=== PATIENT | male | born 1965 | race Caucasian/White ===

== ENCOUNTER 2021-06-20 11:39 | Emergency (ER) | payer SELFPAY ==
--- NOTE | ~2021-06-20 | XR_ITS ---
EXAMINATION: XR chest 2V DATE: 06/20/2021 12:39 INDICATION: Weakness. TECHNIQUE: Frontal and lateral views of the chest were obtained. COMPARISON: None. FINDINGS: There is mild elevation of right hemidiaphragm. There is mild atelectasis at right lung bas e. No pleural effusion or pneumothorax. The heart size is normal. IMPRESSION: 1. Mild elevation of right hemidiaphragm with mild atelectasis at right lung base. Reviewed, dictated and finalized at location A. IMPRESSION: 1. Mild elevation of right hemidiaphragm with mild atelectasis at right lung ba se.
[2021-06-20 12:11] VITALS: BP 109/72; PULSE 103; RESP 16; TEMP 36.3; O2SAT 99
--- NOTE | 2021-06-20 12:15 | ECG_ITS ---
Measurements Intervals [place] Rate: 104 P: 55 IN: 176 QRS: 14 QRSD: 87 T: 48 QT: 355 QTc: 468 Interpretive Statements SINUS TACHYCARDIA POOR R-WAVE PROGRESSION NONSPECIFIC ST & T-WAVE ABNORMALITY ABNORMAL RHYTHM ECG NO PREVIOUS ECG AVAILABLE FOR COMPARISON Electronically Signed On 06-20-2021 15:43:17 CDT by John Sellers M.D.
[2021-06-20 12:29] LABS: Basophils Percent Auto 0.2 % (0.2-1.2); Eosinophils Absolute Auto 0.2 K/mm3 (0-0.3); Eosinophils Percent Auto 1.2 % (0-4.4); Hematocrit 37.5 % (42.0-52.0); Hemoglobin 11.6 g/dL (14.0-18.0); Immature Granulocyte Absolute 0.04 K/mm3 (0.00-0.031); Immature Granulocyte Percent A 0.3 % (0-0.5); Lymphocytes Absolute Auto 1.97 K/mm3 (0.9-3.2); Lymphocytes Percent Auto 13.7 % (18.3-44.2); Mean Corpuscular HGB Conc 30.9 g/dl (32-36); Mean Corpuscular Hemoglobin 31.4 pg (26-34); Mean Corpuscular Volume 101.6 fl (80-100); Mean Platelet Volume 10.3 fl (7.4-10.4); Monocytes Absolute Auto 0.7 K/mm3 (0.1-0.6); Monocytes Percent Auto 4.5 % (2.6-8.5); Neutrophils Absolute Auto 11.5 K/mm3 (1.3-6.7); Neutrophils Percent Auto 80.1 % (45.5-73.1); Platelet Count Result 296 k/mm3 (150-375); Red Blood Count 3.69 M/mm3 (4.6-6.20); Red Cell Distribution Width 16.8 % (11.5-14.5); White Blood Count 14.4 K/mm3 (4.5-10.0)
[2021-06-20 12:43] LABS: Alanine Aminotransferase 66 U/L (4-50); Albumin Level 3.4 g/dL (3.5-5.1); Alkaline Phosphatase 589 U/L (38-126); Anion Gap 5 mmol/L (8-16); Aspartate Amino Transferase 190 U/L (17-59); Bilirubin,Total 1.8 mg/dL (0.2-1.3); Blood Urea Nitrogen 15 mg/dL (9-20); Calcium 8.7 mg/dL (8.4-10.2); Carbon Dioxide 33 mmol/L (22-30); Chloride 97 mmol/L (98-107); Estimated Glomerular Filt Rate > 60; Glucose 109 mg/dL (65-110); Potassium 3.4 mmol/L (3.4-5.0); Sodium 135 mmol/L (137-145)
[2021-06-20 15:16] VITALS: BP 111/83; PULSE 99; RESP 20; O2SAT 100
--- NOTE | 2021-06-20 15:19 | ED.WEAKNESS ---
HPI - Weakness General Chief complaint: Weakness Stated complaint: back pain/weakness Time Seen by Provider: 06/20/21 15:06 Source: patient Mode of arrival: ambulatory Limitations: no limitations History of Present Illness HPI Narrative: Pt presents with intermittent weakness generally over the last several months. 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 says he was more confused this morning. MD Complaint: generalized weakness and difficulty walking Duration: intermittent Location: generalized Exacerbating factors: exertion Related Data Allergies Allergy/AdvReac Type Severity Reaction Status Date / Time ciprofloxacin [From Cipro] Allergy Rash Verified 06/20/21 15:14 mupirocin [From Bactroban] Allergy Hives Verified 06/20/21 15:14 Review of Systems Review of Systems: All systems reviewed & are unremarkable except as noted in HPI and below Exam Const: General: no acute distress Orientation/consciousness: patient oriented x3 HENMT: Head: normal to inspection Eyes: Conjunctivae: conjunctivae normal EOM: EOMs intact bilaterally Neck: Neck: normal visual inspection, no lymphadenopathy and no meningeal signs Chest: Chest palpation & inspection: normal inspection of the chest Resp: Effort & Inspection: normal respiratory effort Auscultation: clear to auscultation bilaterally Cardio: Rate: regular rate Rhythm: regular rhythm GI: Inspection: distended Back/Spine/Pelvis: Back: no CVA tenderness Skin: General skin exam: normal color Neuro: General: patient oriented x3, moves all extremities, no meningeal signs and CN's II-XI intact bilaterally Speech: normal speech Extrem: General: normal to inspection, no clubbing, cyanosis or edema and no pedal edema Course Course Emergency Course: d/w , said having trouble caring for him at home and were told at [facility] that it would cost $5500 for placement since they aren't insured. Hand Knitter contacted here for consult. Pt wants to sign AMA. Will contact . says she will not come get him and they are not capable of caring for him. D/w Tari, will admit. Vital Signs Vital signs: Vital Signs Temperature 97.3 F L 06/20/21 12:11 Pulse Rate 103 H 06/20/21 12:11 Respiratory Rate 16 06/20/21 12:11 Blood Pressure 109/72 06/20/21 12:11 Pulse Oximetry 99 06/20/21 12:11 Temperature 97.3 F L 06/20/21 12:11 Pulse Rate 99 06/20/21 15:16 Respiratory Rate 20 06/20/21 15:16 Blood Pressure 111/83 06/20/21 15:16 Pulse Oximetry 100 06/20/21 15:16 MDM - Weakness Lab Data Result diagrams: 06/20/21 12:18 06/20/21 12:18 Labs: Lab Results 06/20/21 06/20/21 06/20/21 Range/Units 12:18 12:18 15:35 WBC 14.4 H (4.5-10.0) K/mm3 RBC 3.69 L (4.6-6.20) M/mm3 Hgb 11.6 L (14.0-18.0) g/dL Hct 37.5 L (42.0-52.0) % MCV 101.6 H (80-100) fl MCH 31.4 (26-34) pg MCHC 30.9 L (32-36) g/dl RDW 16.8 H (11.5-14.5) % Plt Count 296 (150-375) k/mm3 MPV 10.3 (7.4-10.4) fl Immature Gran % (Auto) 0.3 (0-0.5) % Neut % (Auto) 80.1 H (45.5-73.1) % Lymph % (Auto) 13.7 L (18.3-44.2) % [place] % (Auto) 4.5 (2.6-8.5) % Eos % (Auto) 1.2 (0-4.4) % Baso % (Auto) 0.2 (0.2-1.2) % Lymph # (Auto) 1.97 (0.9-3.2) K/mm3 [place] # (Auto) 0.7 H (0.1-0.6) K/mm3 Eos # (Auto) 0.2 (0-0.3) K/mm3 Baso # (Auto) 0.0 (0.0-0.1) K/mm3 Abs Immat Gran (auto) 0.04 H (0.00-0.031) K/mm3 Absolute Neuts (auto) 11.5 H (1.3-6.7) K/mm3 Absolute Nucleated RBC 0.0 (0.0-0.012) K/mm3 Nucleated RBC % 0.0 (0.0-0.2) % Sodium 135 L (137-145) mmol/L Potassium 3.4 (3.4-5.0) mmol/L Chloride 97 L (98-107) mmol/L Carbon Dioxide 33 H (22-30) mmol/L Anion Gap 5 L (8-16) mmol/L BUN 15 (9-20) mg/dL Creatinine 0.70 (0.7-1.3) mg/
[2021-06-20] MEDS: SODIUM CHLORIDE 0.9% IV 1,000 ML 999 ML IV CONT (15:25)
[2021-06-20 15:49] LABS: Ammonia < 9 umol/L (9-30)
--- NOTE | 2021-06-20 17:42 | PC.NURSE ---
PT STATES HE IS UNABLE TO URINATE
--- NOTE | 2021-06-20 18:53 | PC.NURSE ---
PT DECLINES TO PROVIDE URINE SAMPLE. AWAITING TO PICK PATIENT UP FROM ER. STATES SHE IS COMING FROM [facility].
== END 2021-06-20 19:20 | disposition left against medical advice (07) ==
PROVIDERS: Emergency Provider Emergency Medicine
DX: R53.1 Weakness (principal)
CPT/HCPCS: 36415; 71046; 80053; 82140; 85025; 93005; 96360; 96361; 99283; J7030

== ENCOUNTER 2021-09-14 03:16 | Observation (INO) | payer SELFPAY ==
[2021-09-14] VITALS (55 sets, daily range): BP systolic 118–170; BP diastolic 87–142; PULSE 73–130; RESP 14–26; TEMP 36.4–37.1; O2SAT 90–99; BMI 30.2; BMI 29.0
--- NOTE | 2021-09-14 | ECHO_ITS ---
Patient Info Name: Estiven Singletary Age: 56 years : 1965 Gender: Male Ht: 66 in Wt: 220 lbs BSA: 2.20 m2 HR: 89 bpm BP: 147 / 111 mmHg Technical Quality: Good Exam Date: 09/14/2021 2:56 PM Exam Location: [facility] Patient Status: Inpatient Admit Date: 09/14/2021 Staff Ordering Physician: Lenin Thao APN-Robert Ton Cylinder Inspector: Kunal Woodward RDCS, RT Attending Provider: Lea Gasca DO Referring Physician: Master DONALDSON; Exam Type: CA echo doppler w bubble study Study Info Indications R55 - Syncope and collapse Complete two-dimensional, color flow and Doppler transthoracic echocardiogram is performed. Strain analysis performed. Summary 1. Complete two-dimensional, color flow and Doppler transthoracic echocardiogram is performed. 2. Left ventricular chamber dimension is normal. 3. Left ventricular systolic function is normal, estimated at 55-60%. 4. The left ventricular diastolic function is grade I diastolic dysfunction. 5. E/e' 6 is not elevated. 6. Global longitudinal strain is mildly abnormal at -16.4%. Left Ventricle E/e' 6 is not elevated. Global longitudinal strain is mildly abnormal at -16.4%. Left ventricular chamber dimension is normal. Left ventricular systolic function is normal, estimated at 55-60%. The left ventricular diastolic function is grade I diastolic dysfunction. Right Ventricle Right ventricular systolic function is normal and with normal TAPSE 1.8 cm. Right ventricular chamber dimension is normal. Left Atria Left atrial chamber dimension is normal. Right Atria Right atrial chamber dimension is normal. Atrial Septum Agitated saline injection with and without valsalva maneuver opacified right side cardiac chambers with no obvious shunt to left side cardiac chambers. Intact interatrial septum visualized by 2D and agitated saline imaging. Aortic Valve The aortic valve is trileaflet. There is no aortic valve stenosis. There is no aortic valve regurgitation. Pulmonic Valve There is no pulmonic regurgitation. Mitral Valve There is no mitral valve stenosis. There is no mitral valve regurgitation. Tricuspid Valve There is no tricuspid valve regurgitation. Pericardium/Pleural There is no pericardial effusion. Inferior Vena Cava Normal inferior vena cava with >50% collapse upon inspiration consistent with normal right atrial pressure, 5 mmHg. Aorta The aortic root size at the sinus of Valsalva is normal. Left Ventricular Outflow Tract Name Value Normal LVOT 2D LVOT Diameter 2.0 cm LVOT Doppler LVOT Peak Gradient 7 mmHg LVOT Mean Gradient 4 mmHg LVOT VTI 23 cm LVOT VTI/AV VTI Ratio 1.1 LVOT Stroke Volume 73 ml LVOT CO 6.4 l/min LVOT CI 2.9 l/min/m2 Mitral Valve Name Value Normal
--- NOTE | ~2021-09-14 | CT_ITS ---
EXAMINATION: CT thoracic lumbar wo con DATE: 09/16/2021 14:26 INDICATION: Back pain and numbness TECHNIQUE: Computed tomography (CT) of the thoracic and lumbar spine was performed without intravenou s contrast. Automated exposure control and iterative reconstruction technique were employed. Exam dos e: 2271.56 mGy-cm total exam DLP. COMPARISON: None FINDINGS: Moderately prominent degenerative disc disease at C5-6 and severe degenerative disease at C 6-7. Prominent anterior bridging osteophyte at C3-4. There is prominent anterior spurring at T10 into the upper lumbar spine... No fracture or dislocation or bone destruction of the thoracic spine. There is moderate degenerative disc disease throughout the lumbar and lumbosacral spine with associat ed mild retrolisthesis at L3-4 and L4-5. There is disc bulging posteriorly at L4-5 and L5-S1 but no apparent herniated nucleus pulposus. MR ex amination would be more sensitive and accurate for detection of disc pathology. No fracture or bone destruction, spondylolysis or of the lumbar spine. IMPRESSION: Degenerative changes of the cervical, thoracic and lumbar spine Reviewed, dictated and finalized at Location A. Reviewed, dictated and finalized at location A.
--- NOTE | ~2021-09-14 | US_ITS ---
EXAMINATION: US carotid duplex BI DATE: 09/15/2021 14:41 INDICATION: Syncope TECHNIQUE: Grayscale, color Doppler, and pulsed Doppler images of the cervical carotid arteries were obtained. The degree of vessel stenosis is placed in one of the following categories: normal, <50%, 5 0-69%, >=70% but less than near-occlusion, near-occlusion, or total occlusion. Note that percent sten osis relative to normal distal artery lumen diameter is indirectly measured from velocity measurement s as described by Edilson, et al. Radiology 2003; 229:340-346. Notes: Normal: Peak systolic velocity <125 centimeters/sec and no plaque <50%. Peak systolic velocity <125 ( EDV <40; ICA/CCA PSV ratio <2.0; used these factors only a tandem lesions or low cardiac output or co ntralateral disease) 50-69 %: PSV 125-230 (EDV 40-100; ratio 2-4) >= 70% but less than near occlusion: PSV greater than 230 (EDV > 100; ratio> 4.0) Near Occlusion: PSV that is variable; markedly narrowed lumen Occlusion: Absent flow on color/spectral Doppler and no lumen on cruz scale. COMPARISON: None. FINDINGS: RIGHT: The right common carotid artery (CCA) peak systolic velocity (PSV) is 46 cm/s. The right internal car otid artery (ICA) PSV is 41 cm/s. The right ICA end-diastolic velocity (EDV) is 16 cm/s. The right IC A/CCA PSV ratio is 0.9. The external carotid artery (ECA) PSV is 39 cm/s. There is antegrade flow in the right vertebral artery. LEFT: The left CCA PSV is 50 cm/s. The left ICA PSV is 46 cm/s. The left ICA EDV is 17 cm/s. The left ICA/C CA PSV ratio is 0.9. The ECA PSV is 53 cm/s. There is antegrade flow in the left vertebral artery. IMPRESSION: 1. Less than 50% stenosis in the right internal carotid artery by sonographic criteria. 2. Less than 50% stenosis in the left internal carotid artery by sonographic criteria. Reviewed, dictated and finalized at location A. IMPRESSION: 1. Less than 50% stenosis in the right internal carotid artery by sonographic mariana crane. 2. Less than 50% stenosis in the left internal carotid artery by sonographic zain ivey.
--- NOTE | ~2021-09-14 | XR_ITS ---
EXAMINATION: XR chest 1V portable INDICATION: Chest pain TECHNIQUE: Portable AP chest at 0331 hours COMPARISON: 06/20/2021 FINDINGS: There is elevation of the right hemidiaphragm. The lungs are free of acute opacities. No pl eural effusion or pneumothorax. A suture anchor is noted in the right humeral head. There is osteoart hritis of the shoulders. IMPRESSION: 1. No acute cardiopulmonary abnormality. Reviewed, dictated and finalized at location B.
--- NOTE | ~2021-09-14 | CT_ITS ---
EXAMINATION: CTA chest PE protocol DATE: 09/14/2021 05:09 INDICATION: Chest pain. Elevated d-dimer. TECHNIQUE: Computed tomography (CT) pulmonary angiogram of the chest was performed with 200 mL Omnipa que-350 intravenous contrast. Additional 3D reconstructions utilizing coronal maximum intensity proje ction (MIP) were performed. Automated exposure control and iterative reconstruction technique were em ployed. The dose-length product was 1355.23 mGy-cm. COMPARISON: None FINDINGS: Good contrast opacification of the pulmonary arteries. There is mild streak artifact from dense contr ast in the superior vena cava and right atrium. Mild scattered respiratory motion artifact. Together this only mildly decreases sensitivity in some of the smaller subsegmental pulmonary arteries. No pul monary embolism. Minimal dependent atelectasis in the bilateral lower lobes. No pneumonia, pulmonary edema, pleural effusion or pneumothorax. Heart size is normal. Atherosclerotic coronary artery calcif ication. No pericardial effusion. No pathologically enlarged thoracic lymphadenopathy. There are a fe w scattered diverticula along the visualized portions of the hepatic and splenic flexures of the colo n. There is a dissection beginning 2.5 cm from the origin of the superior mesenteric artery extending at least 5 cm distally to the inferior margin of the [id number] along a partially visualized and partially thrombosed fusiform aneurysm measuring up to 1.7 cm in diameter. Small amount of dependentl y layering high attenuation material in the gallbladder likely either sludge or gallstones. Mild wall thickening at the tip the fundus most likely focal adenomyomatosis. No more diffuse wall thickening or pericholecystic infiltrate stranding to suggest acute cholecystitis. Mild thoracic spondylosis. Ri ght rotator cuff arthropathy with suture anchors along the greater tuberosity right humeral head cons istent with prior rotator cuff repair. IMPRESSION: 1. No pulmonary embolism with sensitivity only mildly decreased some of the smaller subsegmental pulm onary arteries due to mild scattered respiratory motion artifact. 2. 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 3. Small amount of high attenuation sludge or gallstones in the dependent aspect of the gallbladder w ithout wall thickening or inflammatory stranding to suggest acute cholecystitis. Reviewed, dictated and finalized at location A. IMPRESSION: 1. No pulmonary embolism with sensitivity only mildly decreased some of the sma ller subsegmental pulmonary arteries due to mild scattered respiratory motion a rtifact. 2. Superior mesenteric artery dissection with partially visualized fusiform ane urysm measuring up to 1.7 cm. 3. Small amount of high attenuation sludge or gallstones in the dependent aspec t of the gallbladder without wall thickening or inflammatory stranding to sugge st acute cholecystitis.
--- NOTE | ~2021-09-14 | CT_ITS ---
EXAMINATION: CT brain wo con INDICATION: Transient alteration of awareness COMPARISON: None TECHNIQUE: Standard unenhanced head CT. The dose-length product (DLP) was 605.33 mGy-cm. The mA was a djusted according to patient size. Iterative reconstruction technique was employed. FINDINGS: There is no intracranial hemorrhage, acute infarction, or abnormal mass lesion. The ventric les are normal. There is no abnormal mass effect or midline shift. The cruz-white matter differentiat ion is normal. The basal cisterns are patent. The orbits are normal. The paranasal sinuses, mastoids and calvarium are normal. IMPRESSION: 1. No acute intracranial abnormality. Reviewed, dictated and finalized at location B.
--- NOTE | ~2021-09-14 | US_ITS ---
EXAMINATION: US venous doppler [facility] DATE: 09/15/2021 10:00 INDICATION: Bilateral lower limb edema TECHNIQUE: Herrmann scale images without and with compression and Doppler images of the bilateral lower e xtremity veins were obtained. COMPARISON: None FINDINGS: There is nonocclusive thrombus in the right femoral vein. The right common femoral vein, profunda fem oral vein, popliteal vein, peroneal trunk, posterior tibial veins, and greater saphenous vein are pat ent. The left common femoral vein, profunda femoral vein, femoral vein, popliteal vein, peroneal trunk, po sterior tibial veins, and greater saphenous vein are patent. IMPRESSION: 1. Nonocclusive thrombus in the right femoral vein, otherwise patent bilateral lower extremity veins. These findings were discussed with LILIBETH Barreto in the IMU at 1022 hours on 09/15/2021. Reviewed, dictated and finalized at location B. IMPRESSION: 1. Nonocclusive thrombus in the right femoral vein, otherwise patent bilateral lower extremity veins. These findings were discussed with LILIBETH Barreto in the IMU at 1022 hours on 2021.
--- NOTE | ~2021-09-14 | CT_ITS ---
EXAMINATION: CT cervical spine wo con DATE: 09/16/2021 14:26 INDICATION: Pain and numbness TECHNIQUE: Computed tomography (CT) of the cervical spine was performed without intravenous contrast. Automated exposure control and iterative reconstruction technique were employed. Exam dose: 453.62 mGy-cm total exam DLP. COMPARISON: None FINDINGS: There is straightening of the cervical spinal which may be due to positioning or muscle spa sm. C1 and C2 are normally aligned and the odontoid process is intact.. No fracture or dislocation or loc ked facet or prevertebral soft tissue swelling. Mild anterior spurring at C2-3 with preservation of disc space. 3. 4 and C4-5 interspaces are relatively well preserved. Mild to moderate degenerative disc disease at C5-6 with anterior posterior spurring. Severe degenerative disc disease at C6-7 with anterior and moderately prominent posterior spurring. Prominent uncovertebral joint spurring on the left at C2-3, encroaching on left C3 neural foramen. Prominent uncovertebral joint spurring on the right at C5-6 and bilaterally at C6-7, encroaching upon the right C6 and bilateral C7 neural foramina. IMPRESSION: Straightening of cervical spine Cervical spondylosis, including severe degenerative disease at C6-7 in particular, uncovertebral join t spurring particularly on the left at C2-3 on the right at C5-6 and bilaterally at C6-7 Reviewed, dictated and finalized at Location A. Reviewed, dictated and finalized at location A. IMPRESSION: Straightening of cervical spine Cervical spondylosis, including severe degenerative disease at C6-7 in particul ar, uncovertebral joint spurring particularly on the left at C2-3 on the right at C5-6 and bilaterally at C6-7
--- NOTE | 2021-09-14 03:00 | ECG_ITS ---
Measurements Intervals [place] Rate: 120 P: 73 DE: 173 QRS: 35 QRSD: 85 T: 44 QT: 325 QTc: 459 Interpretive Statements SINUS TACHYCARDIA ANTERIOR INFARCT, AGE INDETERMINATE ABNORMAL ECG Electronically Signed On 09-14-2021 15:47:16 CDT by Donato Vincent D.O.
[2021-09-14 03:16] LABS: Basophils Percent Auto 0.2 % (0.2-1.2); Eosinophils Percent Auto 0.3 % (0-4.4); Hematocrit 46.8 % (42.0-52.0); Immature Granulocyte Absolute 0.02 K/mm3 (0.00-0.031); Immature Granulocyte Percent A 0.3 % (0-0.5); Immature Platelet Fraction Pct 2.4 % (0.9-11.2); Lymphocytes Absolute Auto 0.89 K/mm3 (0.9-3.2); Lymphocytes Percent Auto 15.5 % (18.3-44.2); Mean Corpuscular HGB Conc 32.1 g/dl (32-36); Mean Corpuscular Hemoglobin 29.8 pg (26-34); Mean Corpuscular Volume 92.9 fl (80-100); Mean Platelet Volume 9.2 fl (7.4-10.4); Monocytes Absolute Auto 0.3 K/mm3 (0.1-0.6); Monocytes Percent Auto 5.7 % (2.6-8.5); Neutrophils Absolute Auto 4.5 K/mm3 (1.3-6.7); Platelet Count Result 116 k/mm3 (150-375); Red Blood Count 5.04 M/mm3 (4.6-6.20); Red Cell Distribution Width 16.4 % (11.5-14.5); White Blood Count 5.8 K/mm3 (4.5-10.0)
[2021-09-14 03:26] LABS: Alanine Aminotransferase 43 U/L (6-50); Albumin Level 4.4 g/dL (3.5-5.1); Alkaline Phosphatase 223 U/L (38-126); Anion Gap 16 mmol/L (8-16); Aspartate Amino Transferase 85 U/L (17-59); Bilirubin,Total 1.2 mg/dL (0.2-1.3); Blood Urea Nitrogen 14 mg/dL (9-20); Calcium 8.6 mg/dL (8.4-10.2); Carbon Dioxide 20 mmol/L (22-30); Chloride 102 mmol/L (98-107); Estimated CRCL calculation 109 ml/min; Estimated Glomerular Filt Rate > 60; Glucose 282 mg/dL (65-110); Potassium 3.6 mmol/L (3.4-5.0); Sodium 138 mmol/L (137-145)
[2021-09-14 03:37] LABS: Troponin I < 0.012 ng/mL (0.000-0.034)
[2021-09-14] MEDS: SODIUM CHLORIDE 0.9% IV 1,000 ML 999 ML IV CONT ×2 (03:46→05:45)
[2021-09-14] MEDS: MORPHINE SULFATE (*CRX) 4 MG/ML INJ IV PUSH (03:47)
--- NOTE | 2021-09-14 03:47 | ED.GENADULT ---
HPI - General Adult General Chief complaint: Chest Pain <Isidro Ortiz MD - Last Filed: 09/23/21 07:10> Stated complaint: CP <Isidro Ortiz MD - Last Filed: 09/23/21 07:10> History of Present Illness HPI narrative: 56-year-old male history of alcoholism presented emerged department for evaluation of chest pain. Patient states that he last drank 12 September. Patient states he presented to [facility] September 13. Patient was having chest pain at that time. Patient states they did do work-up and discharge home. Patient states he is still feeling ill. Patient describes chest and back pain. Patient states he has not drink alcohol. Patient does appear anxious and jittery <Isidro Ortiz MD - Last Filed: 09/23/21 07:10> Related Data Home medications: Home Medications Medication Instructions Recorded Confirmed gabapentin 400 mg capsule 1 cap PO DAILY 09/14/21 09/14/21 gabapentin 800 mg tablet 1 tablet PO HS 09/14/21 09/14/21 (Neurontin) <Isidro Ortiz MD - Last Filed: 09/23/21 07:10> Allergies/adverse reactions: Allergies Allergy/AdvReac Type Severity Reaction Status Date / Time ciprofloxacin [From Cipro] Allergy Rash Verified 06/20/21 15:14 mupirocin [From Bactroban] Allergy Hives Verified 06/20/21 15:14 <Isidro Ortiz MD - Last Filed: 09/23/21 07:10> [facility] Past Medical History Medical History: Medical History DVT (deep venous thrombosis) Hyperlipidemia Hypertension <Isidro Ortiz MD - Last Filed: 09/23/21 07:10> Surgical History Surgical History: Surgical History H/O repair of rotator cuff <Isidro Ortiz MD - Last Filed: 09/23/21 07:10> Family History Family History: Family History (Updated 09/14/21 @ 15:59 by MYCHAL Villa) Mother Dementia Father Stomach cancer Sibling Diabetes mellitus <Isidro Ortiz MD - Last Filed: 09/23/21 07:10> Social History Social History: Social History (Updated 09/14/21 @ 16:02 by MYCHAL Villa) Social History: patient currently lives with his of 30 years Marion who will be his surrogate. They have 4 kids all of them are girls the oldest being 40 in the is being 27. They have 1 dog 1 cat and he wishes to be a full code at this time. Smoking packs per day: 0.5 Smoking cigarettes per day: 10.0 Years smoked: 30 Smoking pack-years: 15.00 Smoking status: Current every day smoker Tobacco type: cigarettes Alcohol intake: current Drinks per week: 112 Alcohol use details: Patient states he drinks roughly a 5th or more a day of Brennan Sosa Substance use: never Additional occupation/education comments: [employer] Gender identity (if verbalized by the patient): Male Sexual Orientation (if Verbalized by the Patient): Straight or Heterosexual Spiritual care concerns: No Agree to blood products: Yes <Isidro Ortiz MD - Last Filed: 09/23/21 07:10> Course Course Emergency Course: 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 Case was discussed with vascular at [facility] and they felt that patient could be medically managed. Case was discussed with the hospitalist at [facility] and patient was accepted for admission for further work-up. <Isidro Ortiz MD - Last Filed: 09/23/21 07:10> Consultations Consultation #1: Vascular surgery [facility] call back with blood pressure goals of systolic blood pressure less than 120. Discussed with hospitalist team and labetalol was ordered. <Jf White MD - Last Filed: 09/14/21 18:53> Date: 09/14/21 <Jf White MD - Last Filed: 09/14/21 18:53> Time: 09:32 <Jf White MD - Last Filed: 09/14/21 18:53> Vital Signs Vital signs: Vital Signs Temperature 97.6 F 09/14/21 02:58 Pulse Rate 123 H
[2021-09-14] MEDS: LORazepam INJ (*CRX) 2 MG/ML VIAL IV PUSH (03:48)
[2021-09-14 04:21] LABS: D Dimer 1.31 ug/mL (<0.48)
[2021-09-14] MEDS: LORazepam INJ (*CRX) 2 MG/ML VIAL 1 MG IV PUSH ×3 (05:44→14:23)
[2021-09-14] MEDS: THIAMINE HCL 200 MG/2 ML VIAL 100 MG IV PUSH (05:46)
[2021-09-14 05:59] LABS: Amphetamine Screen Urine Negative (Negative); Barbiturate Screen Urine Negative (Negative); Benzodiazepines Screen Urine Positive (Negative); Cannabinoid Screen Urine Positive (Negative); Cocaine Screen Urine Negative (Negative); Methadone Screen Urine Negative (Negative); Opiate Screen Urine Positive (Negative); Phencyclidine Screen Urine Negative (Negative)
[2021-09-14 06:23] LABS: Troponin I < 0.012 ng/mL (0.000-0.034)
[2021-09-14 07:54] LABS: Ethanol 46 mg/dL (<10)
[2021-09-14 09:01] LABS: SARS-CoV-2 RNA PCR Negative
[2021-09-14 09:45] LABS: Troponin I < 0.012 ng/mL (0.000-0.034)
[2021-09-14] MEDS: LABETALOL HCL INJ 100 MG/20 ML VIAL 10 MG IV PUSH (10:34)
[2021-09-14 10:44] LABS: Reflex Lactic Acid Yes or No Add Lactic
--- NOTE | 2021-09-14 11:00 | PM.IMHP ---
H&P: HPI History of Present Illness Date/Time: 09/14/211099 Chief Complaint: Chest pain Narrative: 09/14/21 1100 patient 56-year-old male with a past medical history of alcohol abuse, DVTs, hypertension, hyperlipidemia who presented to the ED for complaints of chest pain and back pain. Patient had went to [place] yesterday however he stated they did do anything for him other workup at all for him having chest pain. He stated that he is also having dizziness and is falling at home. He did state that a few months ago he had been seen for encephalopathy. However since all of that he has been falling more at home. He said the last time he fell which was earlier this week he passed out and his was unable to get him aroused and called EMS. He did state that he is having some chest pain in the left mid clavicular breast area however he stated that it is better now. He also stated that he has had more cough lately that is producing a light brown sputum. Most of his complaints are his back pain which he states is an 8/10 it is more of a burning pain. Both of his arms and legs are numb and tingly. He denies any visual or hearing changes he did state that he was a little short of breath this morning and a little woozy. However when that happens gets lightheaded and dizzy and blacks out. He does admit he is smoking 8 cigarettes per day and has been an avid drinker for about 30 years. He did state over the last 6 years it has gotten worse and he drinks a 5th or more of Brennan Sosa a day. He stated his last drink was September 12. He does get very rambunctious at times and his CIWA score of 16. He does get very hyped and becomes demanding. It appears that he has been down the road a few times and stated that it has been worse since his dad has . He also stated that he is not usually dizzy and that is a new finding. He also stated that he has not been walking and uses a walker and wheelchair at home. Smoking and alcohol cessation has been provided for roughly 12 minutes. He did state that he is interested in not drinking however, he feels that he needs insurance first. He is also complaining of some numbness in his legs feeto and arms. He stated that he thinks it is from being in the wheelchair all the time. He currently seems to be doing well. Trops have been negative x 3. Echo shows a grade one diastolic dysfunction. Librium has been added along with Valium. Patient is being admitted to the hospitalist service under observation Review of Systems Review of Systems: All systems reviewed & are unremarkable except as noted in HPI and below PMFSH Past Medical History Medical History DVT (deep venous thrombosis) Hyperlipidemia Hypertension Surgical History Surgical History H/O repair of rotator cuff Family History Family History (Updated 09/14/21 @ 15:59 by MYCHAL Villa) Mother Dementia Father Stomach cancer Sibling Diabetes mellitus Social History Social History (Updated 09/14/21 @ 16:02 by MYCHAL Villa) Social History: patient currently lives with his of 30 years Marion who will be his surrogate. They have 4 kids all of them are girls the oldest being 40 in the is being 27. They have 1 dog 1 cat and he wishes to be a full code at this time. Smoking packs per day: 0.5 Smoking cigarettes per day: 10.0 Years smoked: 30 Smoking pack-years: 15.00 Smoking status: Current every day smoker Tobacco type: cigarettes Alcohol intake: current Drinks per week: 112 Alcohol use details: Patient states he drinks roughly a 5th or more a day of Brennan Sosa Substance use: never Living arrangements: with family Occupation/Education: retired Additional occupation/education comments: [employer] Gender identity (if verbalized by the patient):
[2021-09-14 11:13] LABS: Lipase 192 U/L (23-300)
[2021-09-14 11:23] LABS: NT Pro B Type Natriuretic Pept 25 pg/mL (5-100)
[2021-09-14] MEDS: LACTATED RINGERS 1,000 ML 999 ML IV CONT (11:37)
[2021-09-14] MEDS: chlordiazePOXIDE (*CRX) 25 MG CAPSULE PO (11:37)
[2021-09-14] MEDS: lisinopriL 20 MG TABLET PO (11:37)
[2021-09-14 12:43] LABS: Lactic Acid 1.8 mmol/L (0.7-2.0)
[2021-09-14] MEDS: FOLIC ACID 1 MG TABLET PO (14:13)
[2021-09-14] MEDS: HYDROcodone/acetaminophen (*CRX) 5-325 MG TABLET 1 TAB PO ×3 (14:13→21:59)
[2021-09-14] MEDS: GABAPENTIN 100 MG CAPSULE PO ×2 (14:34→21:47)
[2021-09-14] MEDS: cloNIDine 0.1 MG/24 HR PATCH 1 PATCH TRANSDERM (14:36)
[2021-09-14 14:42] LABS: Alanine Aminotransferase 36 U/L (6-50); Albumin Level 3.9 g/dL (3.5-5.1); Alkaline Phosphatase 189 U/L (38-126); Anion Gap 4 mmol/L (8-16); Aspartate Amino Transferase 71 U/L (17-59); Bilirubin,Total 2.3 mg/dL (0.2-1.3); Blood Urea Nitrogen 13 mg/dL (9-20); Calcium 8.5 mg/dL (8.4-10.2); Carbon Dioxide 26 mmol/L (22-30); Chloride 105 mmol/L (98-107); Estimated CRCL calculation 126 ml/min; Estimated Glomerular Filt Rate > 60; Glucose 112 mg/dL (65-110); Magnesium 1.5 mg/dL (1.6-2.3); Sodium 135 mmol/L (137-145)
--- NOTE | 2021-09-14 15:01 | ADMGEN ---
This patient, Estiven Singletary, was admitted to IMU Room 201-01. Patient/family oriented to hospital policies and general routines including ID bracelet, bed and alarms, visiting hours, pain management, procedures, bathroom and other care routines, personal items, smoking policy, room service/diet, and visiting hours. Information on how to activate the Rapid Response Team has been discussed. Patient/Family are encouraged to report perceived risks to care and to ask questions if they do not understand what they are told or what they should do.
[2021-09-14] MEDS: chlordiazePOXIDE (*CRX) 25 MG CAPSULE 50 MG PO ×2 (18:28→21:47)
[2021-09-14] MEDS: diazePAM INJ (*CRX) 10 MG/2 ML SYRINGE IV PUSH (18:29)
[2021-09-14] MEDS: NICOTINE (*PBKC) 21 MG PATCH 1 PATCH TRANSDERM (18:29)
[2021-09-14] MEDS: LORazepam INJ (*CRX) 2 MG/ML VIAL 0.5 MG IV PUSH (21:48)
[2021-09-15] VITALS (17 sets, daily range): BP systolic 115–141; BP diastolic 79–98; PULSE 69–121; RESP 16–22; TEMP 36.1–36.7; O2SAT 95–99
[2021-09-15] MEDS: HYDROcodone/acetaminophen (*CRX) 5-325 MG TABLET 1 TAB PO ×3 (03:18→18:34)
[2021-09-15] MEDS: chlordiazePOXIDE (*CRX) 25 MG CAPSULE 50 MG PO ×4 (03:18→21:16)
[2021-09-15] MEDS: diazePAM INJ (*CRX) 10 MG/2 ML SYRINGE IV PUSH ×3 (03:19→18:34)
[2021-09-15 05:46] LABS: Basophils Percent Auto 0.3 % (0.2-1.2); Eosinophils Absolute Auto 0.1 K/mm3 (0-0.3); Eosinophils Percent Auto 1.6 % (0-4.4); Hematocrit 40.9 % (42.0-52.0); Hemoglobin 13.1 g/dL (14.0-18.0); Immature Granulocyte Absolute 0.01 K/mm3 (0.00-0.031); Immature Granulocyte Percent A 0.3 % (0-0.5); Lymphocytes Absolute Auto 1.18 K/mm3 (0.9-3.2); Lymphocytes Percent Auto 38.1 % (18.3-44.2); Mean Corpuscular Volume 93.6 fl (80-100); Mean Platelet Volume 9.5 fl (7.4-10.4); Monocytes Absolute Auto 0.2 K/mm3 (0.1-0.6); Monocytes Percent Auto 5.8 % (2.6-8.5); Neutrophils Absolute Auto 1.7 K/mm3 (1.3-6.7); Neutrophils Percent Auto 53.9 % (45.5-73.1); Platelet Count Result 69 k/mm3 (150-375); Red Blood Count 4.37 M/mm3 (4.6-6.20); Red Cell Distribution Width 15.9 % (11.5-14.5); White Blood Count 3.1 K/mm3 (4.5-10.0)
[2021-09-15 05:55] LABS: Alanine Aminotransferase 32 U/L (6-50); Albumin Level 3.5 g/dL (3.5-5.1); Alkaline Phosphatase 195 U/L (38-126); Anion Gap 6 mmol/L (8-16); Aspartate Amino Transferase 62 U/L (17-59); Bilirubin,Total 2.6 mg/dL (0.2-1.3); Blood Urea Nitrogen 12 mg/dL (9-20); Calcium 8.5 mg/dL (8.4-10.2); Carbon Dioxide 27 mmol/L (22-30); Chloride 103 mmol/L (98-107); Estimated CRCL calculation 91 ml/min; Estimated Glomerular Filt Rate > 60; Glucose 91 mg/dL (65-110); Magnesium 1.6 mg/dL (1.6-2.3); Potassium 3.2 mmol/L (3.4-5.0); Sodium 136 mmol/L (137-145)
[2021-09-15] MEDS: GABAPENTIN 100 MG CAPSULE PO (06:28)
[2021-09-15] MEDS: LORazepam INJ (*CRX) 2 MG/ML VIAL 0.5 MG IV PUSH (06:34)
[2021-09-15 07:41] LABS: Platelet Estimate Decreased (Adequate)
--- NOTE | 2021-09-15 08:30 | PM.IMPN ---
Progress Note: A&P Assessment and Plan (1) Hypertension: Code(s): I10 - Essential (primary) hypertension Status: Acute Assessment and Plan: BP noted to be as high as 169/115 upon arrival Clonidine patch, lisinopril added Current BP is 129/88 Trend BP adjust therapy as indicated (2) Hyperlipidemia: Code(s): E78.5 - Hyperlipidemia, unspecified Status: Acute Assessment and Plan: start on atorvastatin Trend LFTs (3) Chest pain: Code(s): R07.9 - Chest pain, unspecified Status: Acute Assessment and Plan: Seems to be resolved at this time Reported chest pain in the right midclavicular breast area Trops negative echo shows EF 55-60% with a grade 1 diastolic Chest xray no acute cardiopulmonary abnormality CTA shows no PE Add protonix for gerd (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 Status: Acute Assessment and Plan: Seen on the CTA Vascular consulted from outside hospital and expressed blood pressure control Found in 2020 and was 1.5 at that time Getting bigger probably related to uncontrolled HTN, smoking, ETOH abuse Maintain blood pressure <120 systolically Current BP is 129/88 Trend blood pressure (5) Alcohol withdrawal: Code(s): F10.939 - Alcohol use, unspecified with withdrawal, unspecified Status: Acute Assessment and Plan: Folic acid and thiamine on board Librium scheduled, will decrease to 25mg PO Q4HR CIWA protocol, current is 19 Valium ordered Deescalate care as indicated (6) Syncope and collapse: Code(s): R55 - Syncope and collapse Status: Acute Assessment and Plan: Head CT no acute intracranial abnormalities Carotid doppler pending Echo showed EF of 55-60% with grade 1 diastolic dysfunction PT/OT ordered could be from the ETOH abuse Add meclizine Orthostatic blood pressure: Laying 129/88, Sitting 131/89, Standing 131/89 Seems stable at this time Time Spent With Patient Time with patient: Greater than 35 minutes Subjective Date/time seen: 09/15/21 08:30 Interval history: 09/15/21829 Patient doing okay today. He was sleeping when I walked in. He states he is very tired he is not getting sleep as people keep bothering. He still does have significant tremors, headache, agitation, anxiety. He did ask about going home however CIWA score is 19. He is also complaining of back pain. Librium was still at 50 Q 4 will decrease 25 q.4. He is also complaining of his legs feeling very tight and very concerned about possibly having another DVT. Will get venous Dopplers. He denies any chest pain, shortness of breath. He did state that he is ready to get out of bed and he feels like he is getting weaker by sitting in the bed. However he thinks he has been here for 3 days. Able to move out of the IMU. 09/14/21? 1100 ?patient 56-year-old male with a past medical history of alcohol abuse, DVTs, hypertension, hyperlipidemia who presented to the ED for complaints of chest pain and back pain.? Patient had went to [place] yesterday however he stated they did do anything for him other workup at all for him having chest pain.? He stated that he is also having dizziness and is falling at home.? He did state that a few months ago he had? been seen for encephalopathy.? However since all of that he has been falling more at home.? He said the last time he fell which was earlier this week he passed out and his was unable to get him aroused and called EMS.? He did state that he is having some chest pain in the left mid clavicular breast area however he stated that it is better now.? He also stated that he has had more cough lately that is producing a light brown sputum.? Most of his complaints are his back pain which he states is an 8/10 it is more of a burning pain.? Both
--- NOTE | 2021-09-15 08:30 | P.PNIM_ITS ---
Progress Note: A&P Assessment and Plan (1) Hypertension: Code(s): I10 - Essential (primary) hypertension Status: Acute Assessment and Plan: * BP noted to be as high as 169/115 upon arrival * Clonidine patch, lisinopril added * Current BP is 129/88 * Trend BP * adjust therapy as indicated (2) Hyperlipidemia: Code(s): E78.5 - Hyperlipidemia, unspecified Status: Acute Assessment and Plan: * start on atorvastatin * Trend LFTs (3) Chest pain: Code(s): R07.9 - Chest pain, unspecified Status: Acute Assessment and Plan: * Seems to be resolved at this time * Reported chest pain in the right midclavicular breast area * Trops negative * echo shows EF 55-60% with a grade 1 diastolic * Chest xray no acute cardiopulmonary abnormality * CTA shows no PE * Add protonix for gerd (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 Status: Acute Assessment and Plan: * Seen on the CTA * Vascular consulted from outside hospital and expressed blood pressure control * Found in 2020 and was 1.5 at that time * Getting bigger probably related to uncontrolled HTN, smoking, ETOH abuse * Maintain blood pressure <120 systolically * Current BP is 129/88 * Trend blood pressure (5) Alcohol withdrawal: Code(s): F10.939 - Alcohol use, unspecified with withdrawal, unspecified Status: Acute Assessment and Plan: * Folic acid and thiamine on board * Librium scheduled, will decrease to 25mg PO Q4HR * CIWA protocol, current is 19 * Valium ordered * Deescalate care as indicated (6) Syncope and collapse: Code(s): R55 - Syncope and collapse Status: Acute Assessment and Plan: * Head CT no acute intracranial abnormalities * Carotid doppler pending * Echo showed EF of 55-60% with grade 1 diastolic dysfunction * PT/OT ordered * could be from the ETOH abuse * Add meclizine * Orthostatic blood pressure: Laying 129/88, Sitting 131/89, Standing 131/89 * Seems stable at this time Time Spent With Patient Time with patient: Greater than 35 minutes Subjective Date/time seen: 09/15/21 08:30 Interval history: 09/15/21 0830 Patient doing okay today. He was sleeping when I walked in. He states he is very tired he is not getting sleep as people keep bothering. He still does have significant tremors, headache, agitation, anxiety. He did ask about going home however CIWA score is 19. He is also complaining of back pain. Librium was still at 50 Q 4 will decrease 25 q.4. He is also complaining of his legs feeling very tight and very concerned about possibly having another DVT. Will get venous Dopplers. He denies any chest pain, shortness of breath. He did state that he is ready to get out of bed and he feels like he is getting weaker by sitting in the bed. However he thinks he has been here for 3 days. Able to move out of the IMU. 09/14/21? 1100 ?patient 56-year-old male with a past medical history of alcohol abuse, DVTs, hypertension, hyperlipidemia who presented to the ED for complaints of chest pain and back pain.? Patient had went to [place] yesterday however he stated they did do anything for him other workup at all for him having chest pain.? He stated that he is also having dizziness and is falling at home.? He did state that a few months ago he had? been seen for encephalopathy.? However since al
[2021-09-15] MEDS: PANTOPRAZOLE 40 MG TABLET PO ×2 (10:44→21:16)
[2021-09-15] MEDS: POTASSIUM CHLORIDE 20 MEQ TABLET 40 MEQ PO (10:44)
[2021-09-15] MEDS: THIAMINE HCL 100 MG TABLET PO (10:45)
[2021-09-15] MEDS: NICOTINE (*PBKC) 21 MG PATCH 1 PATCH TRANSDERM (10:45)
[2021-09-15] MEDS: FOLIC ACID 1 MG TABLET PO (10:45)
[2021-09-15] MEDS: lisinopriL 20 MG TABLET PO (10:45)
[2021-09-15] MEDS: MAGNESIUM SULF 4 GM/WATER100ML 4 GM/100 ML BAG IVPB (10:46)
[2021-09-15] MEDS: chlordiazePOXIDE (*CRX) 25 MG CAPSULE PO ×2 (10:53→14:55)
[2021-09-15] MEDS: ENOXAPARIN 80 MG/0.8 ML SYRINGE SUB-Q (10:54)
--- NOTE | 2021-09-15 14:22 | PCNSR ---
On 09/15/21, the student, Gardenia Morton, provided care and completed [facility] documentation on this patient. I have reviewed the student's documentation and agree with the findings.
[2021-09-15] MEDS: HYDROmorphone HCL INJ (*CRX) 1 MG/ML SYR 0.5 MG IV PUSH (14:55)
[2021-09-15] MEDS: GABAPENTIN 100 MG CAPSULE 200 MG PO ×2 (14:56→21:16)
[2021-09-15] MEDS: APIXABAN 5 MG TABLET 10 MG PO (21:16)
[2021-09-16] VITALS (22 sets, daily range): BP systolic 97–140; BP diastolic 45–96; PULSE 76–106; RESP 16–26; TEMP 36.1–36.8; O2SAT 97–100
[2021-09-16] MEDS: chlordiazePOXIDE (*CRX) 25 MG CAPSULE 50 MG PO ×4 (01:54→13:06)
[2021-09-16] MEDS: HYDROcodone/acetaminophen (*CRX) 5-325 MG TABLET 1 TAB PO ×4 (01:54→21:20)
[2021-09-16] MEDS: diazePAM INJ (*CRX) 10 MG/2 ML SYRINGE IV PUSH (01:55)
[2021-09-16 05:04] LABS: Basophils Percent Auto 0.2 % (0.2-1.2); Eosinophils Absolute Auto 0.1 K/mm3 (0-0.3); Eosinophils Percent Auto 1.2 % (0-4.4); Hematocrit 43.6 % (42.0-52.0); Immature Granulocyte Absolute 0.01 K/mm3 (0.00-0.031); Immature Granulocyte Percent A 0.2 % (0-0.5); Immature Platelet Fraction Pct 6.9 % (0.9-11.2); Lymphocytes Absolute Auto 1.22 K/mm3 (0.9-3.2); Lymphocytes Percent Auto 29.2 % (18.3-44.2); Mean Corpuscular HGB Conc 32.1 g/dl (32-36); Mean Corpuscular Hemoglobin 30.2 pg (26-34); Mean Corpuscular Volume 94.2 fl (80-100); Mean Platelet Volume 10.7 fl (7.4-10.4); Monocytes Absolute Auto 0.2 K/mm3 (0.1-0.6); Monocytes Percent Auto 4.5 % (2.6-8.5); Neutrophils Absolute Auto 2.7 K/mm3 (1.3-6.7); Neutrophils Percent Auto 64.7 % (45.5-73.1); Platelet Count Result 59 k/mm3 (150-375); Red Blood Count 4.63 M/mm3 (4.6-6.20); White Blood Count 4.2 K/mm3 (4.5-10.0)
[2021-09-16 05:14] LABS: Alanine Aminotransferase 44 U/L (6-50); Albumin Level 3.9 g/dL (3.5-5.1); Alkaline Phosphatase 225 U/L (38-126); Anion Gap 6 mmol/L (8-16); Aspartate Amino Transferase 87 U/L (17-59); Blood Urea Nitrogen 11 mg/dL (9-20); Calcium 9.1 mg/dL (8.4-10.2); Carbon Dioxide 26 mmol/L (22-30); Chloride 104 mmol/L (98-107); Estimated CRCL calculation 91 ml/min; Estimated Glomerular Filt Rate > 60; Glucose 99 mg/dL (65-110); Magnesium 1.8 mg/dL (1.6-2.3); Potassium 4.1 mmol/L (3.4-5.0); Sodium 136 mmol/L (137-145)
[2021-09-16] MEDS: GABAPENTIN 100 MG CAPSULE 200 MG PO ×3 (06:14→21:14)
[2021-09-16] MEDS: NICOTINE (*PBKC) 21 MG PATCH 1 PATCH TRANSDERM (08:53)
[2021-09-16] MEDS: APIXABAN 5 MG TABLET 10 MG PO ×2 (08:53→21:13)
[2021-09-16] MEDS: lisinopriL 20 MG TABLET PO (08:53)
[2021-09-16] MEDS: PANTOPRAZOLE 40 MG TABLET PO ×2 (08:53→21:14)
[2021-09-16] MEDS: FOLIC ACID 1 MG TABLET PO (08:53)
[2021-09-16] MEDS: THIAMINE HCL 100 MG TABLET PO (08:53)
--- NOTE | 2021-09-16 12:30 | PM.IMPN ---
Progress Note: A&P Assessment and Plan (1) Hypertension: Code(s): I10 - Essential (primary) hypertension Status: Acute Assessment and Plan: BP noted to be as high as 169/115 upon arrival Clonidine patch, lisinopril added Current BP is 112/76 Trend BP adjust therapy as indicated (2) Hyperlipidemia: Code(s): E78.5 - Hyperlipidemia, unspecified Status: Acute Assessment and Plan: start on atorvastatin Trend LFTs (3) Chest pain: Code(s): R07.9 - Chest pain, unspecified Status: Acute Assessment and Plan: Seems to be resolved at this time Reported chest pain in the right midclavicular breast area Trops negative echo shows EF 55-60% with a grade 1 diastolic Chest xray no acute cardiopulmonary abnormality CTA shows no PE Add protonix for gerd (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 Status: Acute Assessment and Plan: Seen on the CTA Vascular consulted from outside hospital and expressed blood pressure control Found in 2020 and was 1.5 at that time Getting bigger probably related to uncontrolled HTN, smoking, ETOH abuse Maintain blood pressure <120 systolically Current BP is 112/76 Trend blood pressure (5) Alcohol withdrawal: Code(s): F10.939 - Alcohol use, unspecified with withdrawal, unspecified Status: Acute Assessment and Plan: Folic acid and thiamine on board Librium scheduled, will decrease to 25mg PO Q4HR CIWA protocol, current is 12, for numbness, agitation, disorientation, anxiety and tremors Valium ordered Deescalate care as indicated (6) Syncope and collapse: Code(s): R55 - Syncope and collapse Status: Acute Assessment and Plan: Head CT no acute intracranial abnormalities Carotid doppler pending Echo showed EF of 55-60% with grade 1 diastolic dysfunction PT/OT ordered could be from the ETOH abuse Add meclizine Orthostatic blood pressure: Laying 129/88, Sitting 131/89, Standing 131/89 Seems stable at this time Time Spent With Patient Time with patient: 25 - 35 minutes Subjective Date/time seen: 09/16/21 12:30 Interval history: 09/16/21 1230 Patient was sitting in the chair given himself a sponge bath. He seems a bit slow today. He is still complaining of back pain. He is also complaining that his hands and legs not working as well as he wants. He denies any chest pain, shortness of breath, nausea, vomiting, diarrhea or constipation. He did state that he feels that he is not as shaky with his arms extended when he tries to do something he gets very tremors. He also stated that he feels like his hands are working. I did discuss with the patient about [facility]. He stated that he will call on Sunday to see if he will be able to get in on . Drinking cessation was given another time. It was also explained that he would be able to get the care the he would need at a [facility] he can afford. He stated that he wants to give up the drinking, however, he never seems serious as he continue to give reasons why he does not want to get help. He has been given numerous resources. He wants to go home, however, he is still getting 50mg of librium every 4 hours. Will titrate that down and he might be able to go soon. He also wants a ct of the spine. Will order that. He is also oriented per questioning, however, he tells me that he has not seen me in a couple of days. He also thinks that he has been here for the last week. He gets very worked up when he does not hear what he wants. He does remain pleasant throughout the conversation. 09/15/21 0830 Patient doing okay today.? He was sleeping when I walked in.? He states he is very tired he is not getting sleep as people keep bothering.? He still does have significant tremors, headache, agitation, anxiety.?
--- NOTE | 2021-09-16 12:30 | P.PNIM_ITS ---
Progress Note: A&P Assessment and Plan (1) Hypertension: Code(s): I10 - Essential (primary) hypertension Status: Acute Assessment and Plan: * BP noted to be as high as 169/115 upon arrival * Clonidine patch, lisinopril added * Current BP is 112/76 * Trend BP * adjust therapy as indicated (2) Hyperlipidemia: Code(s): E78.5 - Hyperlipidemia, unspecified Status: Acute Assessment and Plan: * start on atorvastatin * Trend LFTs (3) Chest pain: Code(s): R07.9 - Chest pain, unspecified Status: Acute Assessment and Plan: * Seems to be resolved at this time * Reported chest pain in the right midclavicular breast area * Trops negative * echo shows EF 55-60% with a grade 1 diastolic * Chest xray no acute cardiopulmonary abnormality * CTA shows no PE * Add protonix for gerd (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 Status: Acute Assessment and Plan: * Seen on the CTA * Vascular consulted from outside hospital and expressed blood pressure control * Found in 2020 and was 1.5 at that time * Getting bigger probably related to uncontrolled HTN, smoking, ETOH abuse * Maintain blood pressure <120 systolically * Current BP is 112/76 * Trend blood pressure (5) Alcohol withdrawal: Code(s): F10.939 - Alcohol use, unspecified with withdrawal, unspecified Status: Acute Assessment and Plan: * Folic acid and thiamine on board * Librium scheduled, will decrease to 25mg PO Q4HR * CIWA protocol, current is 12, for numbness, agitation, disorientation, anxiety and tremors * Valium ordered * Deescalate care as indicated (6) Syncope and collapse: Code(s): R55 - Syncope and collapse Status: Acute Assessment and Plan: * Head CT no acute intracranial abnormalities * Carotid doppler pending * Echo showed EF of 55-60% with grade 1 diastolic dysfunction * PT/OT ordered * could be from the ETOH abuse * Add meclizine * Orthostatic blood pressure: Laying 129/88, Sitting 131/89, Standing 131/89 * Seems stable at this time Time Spent With Patient Time with patient: 25 - 35 minutes Subjective Date/time seen: 09/16/21 12:30 Interval history: 09/16/21 1230 Patient was sitting in the chair given himself a sponge bath. He seems a bit slow today. He is still complaining of back pain. He is also complaining that his hands and legs not working as well as he wants. He denies any chest pain, shortness of breath, nausea, vomiting, diarrhea or constipation. He did state that he feels that he is not as shaky with his arms extended when he tries to do something he gets very tremors. He also stated that he feels like his hands are working. I did discuss with the patient about [facility]. He stated that he will call on Sunday to see if he will be able to get in on . Drinking cessation was given another time. It was also explained that he would be able to get the care the he would need at a [facility] he can afford. He stated that he wants to give up the drinking, however, he never seems serious as he continue to give reasons why he does not want to get help. He has been given numerous resources. He wants to go home, however, he is still getting 50mg of librium every 4 hours. Will titrate that down and he might be able to go soon. He also wants a ct of the spine. Will order that. He is also oriented p
[2021-09-16] MEDS: chlordiazePOXIDE (*CRX) 25 MG CAPSULE PO (17:09)
[2021-09-16] MEDS: DOCUSATE SODIUM 100 MG CAPSULE PO (21:13)
[2021-09-16] MEDS: diazePAM INJ (*CRX) 10 MG/2 ML SYRINGE 5 MG IV PUSH (21:32)
[2021-09-17] VITALS (20 sets, daily range): BP systolic 93–111; BP diastolic 52–86; PULSE 71–103; RESP 14–20; TEMP 36.4–36.6; O2SAT 95–99
[2021-09-17] MEDS: chlordiazePOXIDE (*CRX) 25 MG CAPSULE PO ×5 (00:19→23:00)
[2021-09-17 05:18] LABS: Basophils Percent Auto 0.2 % (0.2-1.2); Eosinophils Absolute Auto 0.1 K/mm3 (0-0.3); Eosinophils Percent Auto 1.5 % (0-4.4); Hematocrit 39.1 % (42.0-52.0); Hemoglobin 12.3 g/dL (14.0-18.0); Immature Granulocyte Absolute 0.01 K/mm3 (0.00-0.031); Immature Granulocyte Percent A 0.2 % (0-0.5); Immature Platelet Fraction Pct 8.2 % (0.9-11.2); Lymphocytes Percent Auto 24.2 % (18.3-44.2); Mean Corpuscular HGB Conc 31.5 g/dl (32-36); Mean Corpuscular Hemoglobin 29.9 pg (26-34); Mean Corpuscular Volume 95.1 fl (80-100); Mean Platelet Volume 11.3 fl (7.4-10.4); Monocytes Absolute Auto 0.3 K/mm3 (0.1-0.6); Monocytes Percent Auto 6.4 % (2.6-8.5); Neutrophils Absolute Auto 3.1 K/mm3 (1.3-6.7); Neutrophils Percent Auto 67.5 % (45.5-73.1); Platelet Count Result 60 k/mm3 (150-375); Red Blood Count 4.11 M/mm3 (4.6-6.20); Red Cell Distribution Width 16.1 % (11.5-14.5); White Blood Count 4.6 K/mm3 (4.5-10.0)
[2021-09-17 05:31] LABS: Alanine Aminotransferase 36 U/L (6-50); Albumin Level 3.3 g/dL (3.5-5.1); Alkaline Phosphatase 191 U/L (38-126); Anion Gap 3 mmol/L (8-16); Aspartate Amino Transferase 58 U/L (17-59); Bilirubin,Total 1.1 mg/dL (0.2-1.3); Blood Urea Nitrogen 14 mg/dL (9-20); Calcium 8.7 mg/dL (8.4-10.2); Carbon Dioxide 26 mmol/L (22-30); Chloride 107 mmol/L (98-107); Estimated CRCL calculation 92 ml/min; Estimated Glomerular Filt Rate > 60; Glucose 104 mg/dL (65-110); Magnesium 1.7 mg/dL (1.6-2.3); Potassium 3.8 mmol/L (3.4-5.0); Sodium 136 mmol/L (137-145)
[2021-09-17] MEDS: GABAPENTIN 100 MG CAPSULE 200 MG PO ×3 (06:05→20:55)
[2021-09-17] MEDS: HYDROcodone/acetaminophen (*CRX) 5-325 MG TABLET 1 TAB PO ×4 (06:05→20:55)
[2021-09-17] MEDS: THIAMINE HCL 100 MG TABLET PO (09:05)
[2021-09-17] MEDS: FOLIC ACID 1 MG TABLET PO (09:05)
[2021-09-17] MEDS: PANTOPRAZOLE 40 MG TABLET PO ×2 (09:05→20:55)
[2021-09-17] MEDS: lisinopriL 20 MG TABLET PO (09:05)
[2021-09-17] MEDS: polyethylene glycoL 3350 17 GM POWD.PACK PO (09:05)
[2021-09-17] MEDS: APIXABAN 5 MG TABLET 10 MG PO ×2 (09:05→20:54)
[2021-09-17] MEDS: NICOTINE (*PBKC) 21 MG PATCH 1 PATCH TRANSDERM (09:05)
[2021-09-17] MEDS: DOCUSATE SODIUM 100 MG CAPSULE PO ×2 (09:05→20:55)
[2021-09-17 13:19] LABS: Basophils Percent Auto 0.2 % (0.2-1.2); Eosinophils Absolute Auto 0.1 K/mm3 (0-0.3); Eosinophils Percent Auto 1.3 % (0-4.4); Hematocrit 43.8 % (42.0-52.0); Hemoglobin 13.6 g/dL (14.0-18.0); Immature Granulocyte Absolute 0.02 K/mm3 (0.00-0.031); Immature Granulocyte Percent A 0.3 % (0-0.5); Immature Platelet Fraction Pct 9.1 % (0.9-11.2); Lymphocytes Percent Auto 19.4 % (18.3-44.2); Mean Corpuscular HGB Conc 31.1 g/dl (32-36); Mean Corpuscular Hemoglobin 29.9 pg (26-34); Mean Corpuscular Volume 96.3 fl (80-100); Monocytes Absolute Auto 0.4 K/mm3 (0.1-0.6); Monocytes Percent Auto 7.1 % (2.6-8.5); Neutrophils Absolute Auto 4.4 K/mm3 (1.3-6.7); Neutrophils Percent Auto 71.7 % (45.5-73.1); Platelet Count Result 64 k/mm3 (150-375); Red Blood Count 4.55 M/mm3 (4.6-6.20); Red Cell Distribution Width 16.5 % (11.5-14.5); White Blood Count 6.2 K/mm3 (4.5-10.0)
--- NOTE | 2021-09-17 13:45 | P.PNIM_ITS ---
Progress Note: A&P Assessment and Plan (1) Hypertension: Code(s): I10 - Essential (primary) hypertension Status: Acute Assessment and Plan: * BP noted to be as high as 169/115 upon arrival * Clonidine patch, lisinopril added * Current BP is 112/76 * Trend BP * adjust therapy as indicated - 09/17/21: BP is stable with SBP running in the 90s. Will continue current therapy. (2) Hyperlipidemia: Code(s): E78.5 - Hyperlipidemia, unspecified Status: Acute Assessment and Plan: * start on atorvastatin * Trend LFTs - 09/17/21: Stable and normal LFT's today. Continue current Regimen. (3) Chest pain: Code(s): R07.9 - Chest pain, unspecified Status: Resolved Assessment and Plan: * Seems to be resolved at this time * Reported chest pain in the right midclavicular breast area * Trops negative * echo shows EF 55-60% with a grade 1 diastolic * Chest xray no acute cardiopulmonary abnormality * CTA shows no PE * Add protonix for gerd - 09/17/21: RESOLVED with no further pain. 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 Suarez, Vascular surgeon at [facility] and discussed the most recent issues w/him regarding this patient. He advised that he was not worried about the aneurysm or the dissection as the aneurysm is still small in size as it is less than 2 cm. In addition, he is in agreement that the pt. may have Eliquis for anticoagulation and will not require any IVC Filter. Vascular surgery will follow up with patient at discharge. (5) Alcohol withdrawal: Code(s): F10.939 - Alcohol use, unspecified with withdrawal, unspecified Status: Acute Assessment and Plan: * Folic acid and thiamine on board * Librium scheduled, will decrease to 25mg PO Q4HR * CIWA protocol, current is 12, for numbness, agitation, disorientation, anxiety and tremors * Valium ordered * Deescalate care as indicated - 09/17/21: CIWA is now 0. May discontinue CIWA scoring. (6) Syncope and collapse: Code(s): R55 - Syncope and collapse Status: Acute Assessment and Plan: * Head CT no acute intracranial abnormalities * Carotid doppler pending * Echo showed EF of 55-60% with grade 1 diastolic dysfunction * PT/OT ordered * could be from the ETOH abuse * Add meclizine * Orthostatic blood pressure: Laying 129/88, Sitting 131/89, Standing 131/89 * Seems stable at this time - 09/17/21: Continue Telemetry at this time. (7) DVT (deep venous thrombosis): Code(s): I82.409 - Acute embolism and thrombosis of unspecified deep veins of unspecified lower extremity Status: Acute Assessment and Plan: - 09/17/21: I spoke w/ Dr. Suarez, Vascular surgeon at [facility] and discussed the most recent issues w/him regarding this patient. He advised that he was not worried about the aneurysm or the dissection as the aneurysm is still small in size as it is less than 2 cm. In addition, he is in agreement that the pt. may have Eliquis for anticoagulation and will not require any IV
--- NOTE | 2021-09-17 13:45 | PM.IMPN ---
Progress Note: A&P Assessment and Plan (1) Hypertension: Code(s): I10 - Essential (primary) hypertension Status: Acute Assessment and Plan: BP noted to be as high as 169/115 upon arrival Clonidine patch, lisinopril added Current BP is 112/76 Trend BP adjust therapy as indicated - 09/17/21: BP is stable with SBP running in the 90s. Will continue current therapy. (2) Hyperlipidemia: Code(s): E78.5 - Hyperlipidemia, unspecified Status: Acute Assessment and Plan: start on atorvastatin Trend LFTs - 09/17/21: Stable and normal LFT's today. Continue current Regimen. (3) Chest pain: Code(s): R07.9 - Chest pain, unspecified Status: Resolved Assessment and Plan: Seems to be resolved at this time Reported chest pain in the right midclavicular breast area Trops negative echo shows EF 55-60% with a grade 1 diastolic Chest xray no acute cardiopulmonary abnormality CTA shows no PE Add protonix for gerd - 09/17/21: RESOLVED with no further pain. 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 Suarez, Vascular surgeon at [facility] and discussed the most recent issues w/him regarding this patient. He advised that he was not worried about the aneurysm or the dissection as the aneurysm is still small in size as it is less than 2 cm. In addition, he is in agreement that the pt. may have Eliquis for anticoagulation and will not require any IVC Filter. Vascular surgery will follow up with patient at discharge. (5) Alcohol withdrawal: Code(s): F10.939 - Alcohol use, unspecified with withdrawal, unspecified Status: Acute Assessment and Plan: Folic acid and thiamine on board Librium scheduled, will decrease to 25mg PO Q4HR CIWA protocol, current is 12, for numbness, agitation, disorientation, anxiety and tremors Valium ordered Deescalate care as indicated - 09/17/21: CIWA is now 0. May discontinue CIWA scoring. (6) Syncope and collapse: Code(s): R55 - Syncope and collapse Status: Acute Assessment and Plan: Head CT no acute intracranial abnormalities Carotid doppler pending Echo showed EF of 55-60% with grade 1 diastolic dysfunction PT/OT ordered could be from the ETOH abuse Add meclizine Orthostatic blood pressure: Laying 129/88, Sitting 131/89, Standing 131/89 Seems stable at this time - 09/17/21: Continue Telemetry at this time. (7) DVT (deep venous thrombosis): Code(s): I82.409 - Acute embolism and thrombosis of unspecified deep veins of unspecified lower extremity Status: Acute Assessment and Plan: - 09/17/21: I spoke w/ Dr. Suarez, Vascular surgeon at [facility] and discussed the most recent issues w/him regarding this patient. He advised that he was not worried about the aneurysm or the dissection as the aneurysm is still small in size as it is less than 2 cm. In addition, he is in agreement that the pt. may have Eliquis for anticoagulation and will not require any IVC Filter. Vascular surgery will follow up with patient at discharge. - Continue Eliquis at this time. Time Spent With Patient Time with patient: 25 - 35 minutes Subjective Date/time seen: 09/17/21 0930 This pt. was examined at the bedside in interval assessment after he was admitted to the hospital for abdominal pain and back pain that he described as a burning as well as dizziness and frequent falls at home. He has a history of DVT, HTN, HLD, a known SMA aneurysm that la
--- NOTE | 2021-09-17 20:31 | PC.NURSE ---
Report called to Black MCELROY. 242 is still being cleaned. He will call when the room is ready.
--- NOTE | 2021-09-17 21:17 | PC.NURSE ---
This patient, Estiven Singletary, was transferred to [facility] on 09/17/21 at 2117. Personal belongings sent with patient. Report given to Black MCELROY. Appropriate documentation sent with patient.
[2021-09-18] VITALS (11 sets, daily range): BP systolic 92–114; BP diastolic 58–80; PULSE 80–111; RESP 16–20; TEMP 36.6–36.8; O2SAT 94–95
[2021-09-18] MEDS: chlordiazePOXIDE (*CRX) 25 MG CAPSULE PO (05:03)
[2021-09-18] MEDS: GABAPENTIN 100 MG CAPSULE 200 MG PO (05:07)
[2021-09-18] MEDS: HYDROcodone/acetaminophen (*CRX) 5-325 MG TABLET 1 TAB PO ×2 (05:08→09:09)
[2021-09-18 05:52] LABS: Basophils Percent Auto 0.2 % (0.2-1.2); Eosinophils Absolute Auto 0.1 K/mm3 (0-0.3); Eosinophils Percent Auto 1.7 % (0-4.4); Hematocrit 41.1 % (42.0-52.0); Hemoglobin 12.6 g/dL (14.0-18.0); Immature Granulocyte Absolute 0.01 K/mm3 (0.00-0.031); Immature Granulocyte Percent A 0.2 % (0-0.5); Lymphocytes Absolute Auto 1.19 K/mm3 (0.9-3.2); Lymphocytes Percent Auto 25.5 % (18.3-44.2); Mean Corpuscular HGB Conc 30.7 g/dl (32-36); Mean Corpuscular Hemoglobin 29.9 pg (26-34); Mean Corpuscular Volume 97.4 fl (80-100); Mean Platelet Volume 11.1 fl (7.4-10.4); Monocytes Absolute Auto 0.3 K/mm3 (0.1-0.6); Monocytes Percent Auto 5.8 % (2.6-8.5); Neutrophils Absolute Auto 3.1 K/mm3 (1.3-6.7); Neutrophils Percent Auto 66.6 % (45.5-73.1); Platelet Count Result 72 k/mm3 (150-375); Red Blood Count 4.22 M/mm3 (4.6-6.20); Red Cell Distribution Width 16.9 % (11.5-14.5); White Blood Count 4.7 K/mm3 (4.5-10.0)
[2021-09-18 06:05] LABS: Alanine Aminotransferase 31 U/L (6-50); Albumin Level 3.4 g/dL (3.5-5.1); Alkaline Phosphatase 187 U/L (38-126); Anion Gap 5 mmol/L (8-16); Aspartate Amino Transferase 44 U/L (17-59); Bilirubin,Total 0.8 mg/dL (0.2-1.3); Blood Urea Nitrogen 16 mg/dL (9-20); Calcium 9.1 mg/dL (8.4-10.2); Carbon Dioxide 26 mmol/L (22-30); Chloride 106 mmol/L (98-107); Estimated CRCL calculation 92 ml/min; Estimated Glomerular Filt Rate > 60; Glucose 117 mg/dL (65-110); Magnesium 1.7 mg/dL (1.6-2.3); Potassium 3.9 mmol/L (3.4-5.0); Sodium 137 mmol/L (137-145)
--- NOTE | 2021-09-18 07:12 | P.DS_ITS ---
DS: Admitting Diagnosis Discharge Date 09/18/2021 Admitting Diagnosis Hypertension, HLD, Chest Pain, Dissection of mesenteric artery, Alcohol Withdrawl, Syncope and Collapse DS: Discharge Diagnosis Discharge Diagnosis (1) Hypertension: Code(s): I10 - Essential (primary) hypertension Status: Acute Assessment and Plan: * BP noted to be as high as 169/115 upon arrival * Clonidine patch, lisinopril added * Current BP is 112/76 * Trend BP * adjust therapy as indicated - 09/17/21: BP is stable with SBP running in the 90s. Will continue current therapy. - 09/18/21, Date of Discharge: SBP this AM is 101. Pt. will be discharged today with current medication regiment to keep his SBP <120 as requested per [facility] Vascular. These medications will consist of Lisinopril 20 mg po QAM, and Clonidine patch weekly. (2) Hyperlipidemia: Code(s): E78.5 - Hyperlipidemia, unspecified Status: Acute Assessment and Plan: * start on atorvastatin * Trend LFTs - 09/17/21: Stable and normal LFT's today. Continue current Regimen. - 09/18/21: Continue Atorvastatin at discharge. (3) Chest pain: Code(s): R07.9 - Chest pain, unspecified Status: Resolved Assessment and Plan: * Seems to be resolved at this time * Reported chest pain in the right midclavicular breast area * Trops negative * echo shows EF 55-60% with a grade 1 diastolic * Chest xray no acute cardiopulmonary abnormality * CTA shows no PE * Add protonix for gerd - 09/17/21: RESOLVED with no further pain. 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 Suarez, Vascular surgeon at [facility] and discussed the most recent issues w/him regarding this patient. He advised that he was not worried about the aneurysm or the dissection as the aneurysm is still small in size as it is less than 2 cm. In addition, he is in agreement that the pt. may have Eliquis for anticoagulation and will not require any IVC Filter. Vascular surgery will follow up with patient at discharge. - 09/18/21, Date of discharge: Pt. is ready for discharge at this time. He has a prescription card for his Eliquis that is good for the next year and we have the OK from [facility] Vascular to continue with the Eliquis for the patient's DVT. (5) Alcohol withdrawal: Code(s): F10.939 - Alcohol use, unspecified with withdrawal, unspecified Status: Resolved Assessment and Plan: * Folic acid and thiamine on board * Librium scheduled, will decrease to 25mg PO Q4HR * CIWA protocol, current is 12, for numbness, agitation, disorientation, anxiety and tremors * Valium ordered * Deescalate care as indicated - 09/17/21: CIWA is now 0. May discontinue CIWA scoring. (6) Syncope and collapse: Code(s): R55 - Syncope and collapse Status: Acute Assessment and Plan: * Head CT no acute intracranial abnormalities * Carotid doppler pending * Echo showed EF of 55-60% with grade 1 diastolic dysfunction * PT/OT ordered * could be from the ETOH abuse * Add meclizine * Orthostatic b
--- NOTE | 2021-09-18 07:12 | PM.DS ---
DS: Admitting Diagnosis Discharge Date 09/18/2021 Admitting Diagnosis Hypertension, HLD, Chest Pain, Dissection of mesenteric artery, Alcohol Withdrawl, Syncope and Collapse DS: Discharge Diagnosis Discharge Diagnosis (1) Hypertension: Code(s): I10 - Essential (primary) hypertension Status: Acute Assessment and Plan: BP noted to be as high as 169/115 upon arrival Clonidine patch, lisinopril added Current BP is 112/76 Trend BP adjust therapy as indicated - 09/17/21: BP is stable with SBP running in the 90s. Will continue current therapy. - 09/18/21, Date of Discharge: SBP this AM is 101. Pt. will be discharged today with current medication regiment to keep his SBP <120 as requested per [facility] Vascular. These medications will consist of Lisinopril 20 mg po QAM, and Clonidine patch weekly. (2) Hyperlipidemia: Code(s): E78.5 - Hyperlipidemia, unspecified Status: Acute Assessment and Plan: start on atorvastatin Trend LFTs - 09/17/21: Stable and normal LFT's today. Continue current Regimen. - 09/18/21: Continue Atorvastatin at discharge. (3) Chest pain: Code(s): R07.9 - Chest pain, unspecified Status: Resolved Assessment and Plan: Seems to be resolved at this time Reported chest pain in the right midclavicular breast area Trops negative echo shows EF 55-60% with a grade 1 diastolic Chest xray no acute cardiopulmonary abnormality CTA shows no PE Add protonix for gerd - 09/17/21: RESOLVED with no further pain. 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 Suarez, Vascular surgeon at [facility] and discussed the most recent issues w/him regarding this patient. He advised that he was not worried about the aneurysm or the dissection as the aneurysm is still small in size as it is less than 2 cm. In addition, he is in agreement that the pt. may have Eliquis for anticoagulation and will not require any IVC Filter. Vascular surgery will follow up with patient at discharge. - 09/18/21, Date of discharge: Pt. is ready for discharge at this time. He has a prescription card for his Eliquis that is good for the next year and we have the OK from [facility] Vascular to continue with the Eliquis for the patient's DVT. (5) Alcohol withdrawal: Code(s): F10.939 - Alcohol use, unspecified with withdrawal, unspecified Status: Resolved Assessment and Plan: Folic acid and thiamine on board Librium scheduled, will decrease to 25mg PO Q4HR CIWA protocol, current is 12, for numbness, agitation, disorientation, anxiety and tremors Valium ordered Deescalate care as indicated - 09/17/21: CIWA is now 0. May discontinue CIWA scoring. (6) Syncope and collapse: Code(s): R55 - Syncope and collapse Status: Acute Assessment and Plan: Head CT no acute intracranial abnormalities Carotid doppler pending Echo showed EF of 55-60% with grade 1 diastolic dysfunction PT/OT ordered could be from the ETOH abuse Add meclizine Orthostatic blood pressure: Laying 129/88, Sitting 131/89, Standing 131/89 Seems stable at this time - 09/17/21: Continue Telemetry at this time. (7) DVT (deep venous thrombosis): Code(s): I82.409 - Acute embolism and thrombosis of unspecified deep veins of unspecified lower extremity Status: Acute Assessment and Plan: - 09/17/21: I spoke w/ Dr. Suarez, Vascular surgeon at [facility] and discussed the most recent issues w/him regarding this patient. He advised t
[2021-09-18] MEDS: NICOTINE (*PBKC) 21 MG PATCH 1 PATCH TRANSDERM (08:41)
[2021-09-18] MEDS: DOCUSATE SODIUM 100 MG CAPSULE PO (08:41)
[2021-09-18] MEDS: PANTOPRAZOLE 40 MG TABLET PO (08:42)
[2021-09-18] MEDS: APIXABAN 5 MG TABLET 10 MG PO (08:42)
[2021-09-18] MEDS: lisinopriL 20 MG TABLET PO (08:43)
[2021-09-18] MEDS: FOLIC ACID 1 MG TABLET PO (08:43)
[2021-09-18] MEDS: polyethylene glycoL 3350 17 GM POWD.PACK PO (08:43)
[2021-09-18] MEDS: THIAMINE HCL 100 MG TABLET PO (08:43)
--- NOTE | 2021-09-18 09:32 | PCOTNOTE ---
Attempted to see pt for occupational therapy tx this AM at 09:32. Due to pt's upcoming d/c today, pt refused to participate in any self care tasks and/or therapeutic activities to jinx his d/c home today per pt. Pt was educated on the importance of continued therapy participation to increase independence with daily occupations. Will continue per poc duration/frequency tomorrow.
[2021-09-18 12:33] LABS: Heparin Induced Platelet Antib Negative (Negative)
[2021-09-18 14:43] LABS: Heparin, Anti-XA 0.46 IU/mL
== END 2021-09-18 11:00 | disposition home or self-care (01) ==
LOC: ANHED 09:08 → ANHIMU 10:40 → ANH2MED 09-17 21:26
PROVIDERS: Emergency Medicine; Nurse Practitioner; Admitting Provider Student in an Organized Health Care Education/Training Program; Emergency Provider Emergency Medicine; Visit Provider Nurse Practitioner Adult Health
DX: R07.9 Chest pain, unspecified (principal); I77.79 Dissection of other specified artery; I82.411 Acute embolism and thrombosis of right femoral vein; F10.230 Alcohol dependence with withdrawal, uncomplicated; R06.2 Wheezing; R55 Syncope and collapse; I10 Essential (primary) hypertension; E78.5 Hyperlipidemia, unspecified; F17.210 Nicotine dependence, cigarettes, uncomplicated; Z20.822 Contact with and (suspected) exposure to COVID-19
CPT/HCPCS: 36415; 70450; 71045; 71275; 72125; 72128; 72131; 80053; 80307; 83036; 83605; 83690; 83735; 83880; 84484; 85025; 85055; 85380; 85520; 86022; 93005; 93306; 93880; 93970; 94640; 96361; 96365; 96372; 96374; 96375; 96376; 97110; 97116; 97161; 97165; 97530; 99285; A9270; C9803; G0378; J1170; J1650; J2060; J2270; J3360; J3411; J3475; J7030; J7120; Q9967; U0003; U0005

== ENCOUNTER 2021-10-09 07:46 | Emergency (ER) | payer SELFPAY ==
[2021-10-09] VITALS (7 sets, daily range): BP systolic 129–144; BP diastolic 82–98; PULSE 99–111; RESP 10–19; TEMP 36.2; O2SAT 95–97
--- NOTE | ~2021-10-09 | XR_ITS ---
EXAMINATION: XR pelvis 1-2V DATE: 10/09/2021 09:13 INDICATION: Fall. Ethanol. TECHNIQUE: An anteroposterior view of the pelvis was obtained. COMPARISON: None. FINDINGS: Bone alignment is normal. No fracture. Mild bilateral hip osteoarthritis. Right os acetabulum on the lateral rim of the right acetabulum. Mild lumbar spondylosis. Several phleboliths in the pelvis. Norm al bowel gas pattern. IMPRESSION: 1. Mild degenerative skeletal changes. No acute osseous abnormality. Reviewed, dictated and finalized at location A.
--- NOTE | ~2021-10-09 | CT_ITS ---
EXAMINATION: 1. CT facial & cervical spine wo DATE: 10/09/2021 09:12 INDICATION: Fall with head injury and laceration to the left eyebrow. TECHNIQUE: 1. Computed tomography (CT) of the maxillofacial region and of the cervical spine were performed with out intravenous contrast. Sagittal and coronal reconstructions of both regions were obtained. Automat ed exposure control and iterative reconstruction technique were employed. The dose-length product was 946.57 mGy-cm. COMPARISON: Head and cervical spine CT studies dated 09/15/2021 and 09/16/2021 respectively FINDINGS: Maxillofacial CT: Soft tissue swelling along the left supraorbital rim. No underlying fracture. There is mild angulatio n along the physis of the left nasal bone without significant overlying soft tissue swelling suggesti ng is either developmental or sequela of chronic injury. No maxillofacial fractures. Orbits are keily l. Mild mucoperiosteal thickening at the lateral ethmoid sinuses. Mastoid air cells and middle ear ca vities are clear. Cervical spine CT: Straightening of the normal cervical lordosis. Vertebral body heights are normal. No fracture. Severe disc height loss at C6-C7 with degenerative endplate changes and posterior disc osteophyte complex r esulting in mild central canal stenosis at this level. Mild disc height loss at C2-C3,, C4-C5, C5-C6 and C7-T1. Additional small posterior disc osteophyte complex at C5-C6 resulting in additional mild c entral canal stenosis at this level. Multilevel mild cervical facet and uncovertebral osteoarthritis together resulting in mild neural foraminal stenosis at a few levels on both the left and right, grea test on the left at C6-C7. Cervical soft tissues are unremarkable. Small pneumatocele at the posterio r right apex. IMPRESSION: 1. No maxillofacial or cervical spine fractures. 2. Severe disc height loss at C6-C7. Otherwise mild cervical spondylosis. Reviewed, dictated and finalized at location A.
--- NOTE | ~2021-10-09 | CT_ITS ---
EXAMINATION: CT lumbar spine wo con DATE: 10/09/2021 11:42 INDICATION: Low back pain post fall TECHNIQUE: Computed tomography (CT) of the lumbar spine was performed without intravenous contrast. A utomated exposure control and iterative reconstruction technique were employed. The dose-length produ ct was 969.73 mGy-cm. COMPARISON: 09/16/2021 FINDINGS: 7 degrees lumbar levocurvature. And 3 mm retrolisthesis L3 on L4 and L4 on L5.. Vertebral body height s are normal. No fracture. Mild disc height loss at L1-L2 and on the right side of L3-L4. Disc bulge at L1-L2, L3-L4, L4-L5 and L5-S1 resulting in mild central canal stenosis at each level. Multilevel m ild bilateral lumbar facet osteoarthritis. Mild neural foraminal stenosis bilaterally at L3-L4 throug h L5-S1. Mild bilateral sacroiliac osteoarthritis. Paravertebral soft tissues are unremarkable. IMPRESSION: 1. Mild lumbar levocurvature with mild spondylosis. No acute osseous abnormality. Reviewed, dictated and finalized at location A. IMPRESSION: 1. Mild lumbar levocurvature with mild spondylosis. No acute osseous abnormalit y.
--- NOTE | ~2021-10-09 | CT_ITS ---
EXAMINATION: CT brain wo con DATE: 10/09/2021 09:06 INDICATION: Fall with head injury and laceration at the left eyebrow. TECHNIQUE: Computed tomography (CT) of the head was performed without intravenous contrast. Sagittal and coronal reconstructions were performed. The mA was adjusted according to patient size. Iterative reconstruction technique was employed. The dose-length product was 605.33 mGy-cm. COMPARISON: head CT dated 09/15/21 FINDINGS: Small anterior left frontal scalp hematoma along the left supraorbital rim. No fracture. No acute int racranial hemorrhage, acute infarction or abnormal extra axial fluid collection. Symmetric prominence of the sulci consistent with mild diffuse cerebral volume loss. Ventricles are normal and symmetri c. No mass/mass effect. Mild mucoperiosteal thickening the bilateral ethmoid and maxillary sinuses. T he orbits and mastoid air cells are normal. IMPRESSION: 1. No fracture or acute intracranial process. Reviewed, dictated and finalized at location A.
--- NOTE | ~2021-10-09 | XR_ITS ---
EXAMINATION: XR chest 1V DATE: 10/09/2021 09:13 INDICATION: Fall with ethanol intoxication. Hypertension. TECHNIQUE: frontal view of the chest was obtained. COMPARISON: Chest radiograph and CT dated 09/14/2021 FINDINGS: Lung volumes are decreased with persistent elevation the right hemidiaphragm. No focal airspace opaci ties, pulmonary edema, pleural effusion or pneumothorax. The cardiomediastinal silhouette is normal. Right rotator cuff arthropathy. IMPRESSION: 1. Small lung volumes with unchanged elevation right hemidiaphragm. No acute cardiopulmonary disease. Reviewed, dictated and finalized at location A. IMPRESSION: 1. Small lung volumes with unchanged elevation right hemidiaphragm. No acute ca rdiopulmonary disease.
--- NOTE | 2021-10-09 07:58 | ED.FALL ---
HPI - Fall General Chief Complaint: Fall <Travis Metcalf - Last Filed: 10/09/21 12:26> Stated Complaint: FALL ETOH ON BOARD <Travis Metcalf DO [facility] Last Filed: 10/09/21 12:26> Source: RN notes reviewed <Travis Metcalf - Last Filed: 10/09/21 12:26> History of Present Illness HPI Narrative: Patient presents emergency department from home via EMS for fall. The patient fell out of his wheelchair at home striking his head. Per the family patient has been drinking heavily for the past 3 days and has had slurred speech for the past 4 days. The patient did strike his head when he fell complaining of pain in his head patient is currently on blood thinners he is awake and alert patient noted to have a laceration over his left eyebrow as well as abrasions over the left side of his face unsure of his last tetanus shot. He denies any vision changes, chest pain shortness of breath abdominal pain nausea vomiting or any other symptoms <Travis Metcalf Last Filed: 10/09/21 12:26> Related Data Home Medications: Home Medications Medication Instructions Recorded Confirmed gabapentin 400 mg capsule 1 cap PO DAILY 09/14/21 09/14/21 gabapentin 800 mg tablet 1 tablet PO HS 09/14/21 09/14/21 (Neurontin) <Travis Metcalf - Last Filed: 10/09/21 12:26> Allergies/Adverse Reactions: Allergies Allergy/AdvReac Type Severity Reaction Status Date / Time ciprofloxacin [From Cipro] Allergy Rash Verified 06/20/21 15:14 mupirocin [From Bactroban] Allergy Hives Verified 06/20/21 15:14 <Travis Metcalf - Last Filed: 10/09/21 12:26> Review of Systems Review of Systems: Gen.: Denies fevers or chills Eyes: Denies eye pain or visual change ENT: Reports facial pain Respiratory: Denies shortness of breath CV: Denies chest pain GI: Denies abdominal pain nausea, emesis Musculoskeletal: Denies back pain or muscle pain Neuro: Denies numbness, tingling, weakness or focal weakness reports slurred speech Skin: See HPI Except as documented, all other systems reviewed and negative <Travis Metcalf DO - Last Filed: 10/09/21 12:26> [facility] Past Medical History Medical History: Medical History DVT (deep venous thrombosis) Hyperlipidemia Hypertension <Travis Metcalf DO - Last Filed: 10/09/21 12:26> Surgical History Surgical History: Surgical History H/O repair of rotator cuff <Travis Metcalf DO - Last Filed: 10/09/21 12:26> Family History Family History: Family History (Updated 09/14/21 @ 15:59 by MYCHAL Villa) Mother Dementia Father Stomach cancer Sibling Diabetes mellitus <Travis Metcalf DO - Last Filed: 10/09/21 12:26> Social History Social History: Social History Social History: patient currently lives with his of 30 years Marion who will be his surrogate. They have 4 kids all of them are girls the oldest being 40 in the is being 27. They have 1 dog 1 cat and he wishes to be a full code at this time. Smoking packs per day: 0.5 Smoking cigarettes per day: 10.0 Years smoked: 30 Smoking pack-years: 15.00 Smoking status: Current every day smoker Tobacco type: cigarettes Alcohol intake: current Drinks per week: 112 Alcohol use details: Patient states he drinks roughly a 5th or more a day of Brennan Sosa Substance use: never Additional occupation/education comments: [place] [employer] Gender identity (if verbalized by the patient): Male Sexual Orientation (if Verbalized by the Patient): Straight or Heterosexual Spiritual care concerns: No Agree to blood products: Yes <Travis Metcalf DO - Last Filed: 10/09/21 12:26> Exam Narrative: APPEARANCE: No acute distress, nontoxic, resting in bed EYES: EOMI, P
[2021-10-09 08:14] LABS: Basophils Percent Auto 0.7 % (0.2-1.2); Eosinophils Absolute Auto 0.1 K/mm3 (0-0.3); Eosinophils Percent Auto 2.1 % (0-4.4); Hematocrit 45.6 % (42.0-52.0); Hemoglobin 14.6 g/dL (14.0-18.0); Immature Granulocyte Absolute 0.01 K/mm3 (0.00-0.031); Immature Granulocyte Percent A 0.2 % (0-0.5); Lymphocytes Percent Auto 36.1 % (18.3-44.2); Mean Corpuscular Hemoglobin 29.6 pg (26-34); Mean Corpuscular Volume 92.5 fl (80-100); Mean Platelet Volume 8.7 fl (7.4-10.4); Monocytes Absolute Auto 0.5 K/mm3 (0.1-0.6); Neutrophils Percent Auto 51.9 % (45.5-73.1); Platelet Count Result 153 k/mm3 (150-375); Red Blood Count 4.93 M/mm3 (4.6-6.20); Red Cell Distribution Width 16.9 % (11.5-14.5); White Blood Count 5.8 K/mm3 (4.5-10.0)
[2021-10-09 08:28] LABS: Alanine Aminotransferase 23 U/L (6-50); Albumin Level 4.3 g/dL (3.5-5.1); Alkaline Phosphatase 197 U/L (38-126); Anion Gap 15 mmol/L (8-16); Aspartate Amino Transferase 44 U/L (17-59); Bilirubin,Total 0.7 mg/dL (0.2-1.3); Blood Urea Nitrogen 12 mg/dL (9-20); Carbon Dioxide 24 mmol/L (22-30); Chloride 106 mmol/L (98-107); Estimated Glomerular Filt Rate > 60; Glucose 106 mg/dL (65-110); Sodium 145 mmol/L (137-145)
[2021-10-09] MEDS: SODIUM CHLORIDE 0.9% IV 1,000 ML 999 ML IV CONT (08:30)
[2021-10-09 08:35] LABS: INR 1.1; Partial Thromboplastin Time 29.3 SECONDS (22.3-36.8); Prothrombin Time 14.2 Seconds (11.1-14.7)
[2021-10-09] MEDS: THIAMINE HCL 200 MG/2 ML VIAL 100 MG IV PUSH (08:37)
[2021-10-09] MEDS: TETANUS,DIPHTHERIA,AC PERTUSSIS ADULT (0.5 ML) BOOSTRIX IM (08:42)
[2021-10-09 08:54] LABS: Ethanol 417 mg/dL (<10)
== END 2021-10-09 12:40 | disposition home or self-care (01) ==
PROVIDERS: Emergency Provider Emergency Medicine
DX: S01.112A Laceration without foreign body of left eyelid and periocular area, initial encounter (principal); S00.83XA Contusion of other part of head, initial encounter; M54.50 Low back pain, unspecified; G89.29 Other chronic pain; F10.129 Alcohol abuse with intoxication, unspecified; Y90.8 Blood alcohol level of 240 mg/100 ml or more; Z23 Encounter for immunization; E78.5 Hyperlipidemia, unspecified; I10 Essential (primary) hypertension; Z86.718 Personal history of other venous thrombosis and embolism; F17.210 Nicotine dependence, cigarettes, uncomplicated; Z79.01 Long term (current) use of anticoagulants; M47.812 Spondylosis without myelopathy or radiculopathy, cervical region; M47.816 Spondylosis without myelopathy or radiculopathy, lumbar region; W05.0XXA Fall from non-moving wheelchair, initial encounter
CPT/HCPCS: 12011; 36415; 70450; 70486; 71045; 72125; 72131; 72170; 80053; 80307; 85025; 85610; 85730; 90471; 90715; 96361; 96365; 96375; 99284; J0131; J3411; J7030

== ENCOUNTER 2021-10-09 20:22 | Emergency (ER) | payer SELFPAY ==
[2021-10-09 20:23] VITALS: BP 139/104; PULSE 132; RESP 22; TEMP 36.6; O2SAT 95
--- NOTE | 2021-10-09 20:41 | ED.BACK ---
HPI - Back Pain/Injury General Chief Complaint: Back Pain/Injury Stated Complaint: low back pain Time Seen by Provider: 10/09/21 20:32 History of Present Illness HPI Narrative: 56-year-old male return to the emergency room complaints of lower back pain. States pain is radiating down to his right leg, but this is normal for him. States pain is just worse since his injury this morning patient was seen here earlier today after falling out of his wheelchair due to heavy alcohol use. Patient suffered a head injury that required suturing. Images were obtained for head and lower back, and were found to be negative. Patient is also complaining of dizziness and a headache and feeling spacey . Patient denies new injury since his ER visit this morning Related Data Home Medications Medication Instructions Recorded Confirmed gabapentin 400 mg capsule 1 cap PO DAILY 09/14/21 09/14/21 gabapentin 800 mg tablet 1 tablet PO HS 09/14/21 09/14/21 (Neurontin) Allergies Allergy/AdvReac Type Severity Reaction Status Date / Time ciprofloxacin [From Cipro] Allergy Rash Verified 10/09/21 20:30 mupirocin [From Bactroban] Allergy Hives Verified 10/09/21 20:30 Review of Systems Review of Systems: CONSTITUTIONAL: Denies fever, chills, or sweats. EYES: Denies visual changes, redness, or discharge. ENT: Denies rhinorrhea, congestion, sore throat, or otalgia. CARDIOVASCULAR: Denies chest pain, palpitations, or edema. RESPIRATORY: Denies cough or dyspnea. GASTROINTESTINAL: Denies abdominal pain, nausea, vomiting, or diarrhea. GENITOURINARY: Denies dysuria or hematuria. SKIN: Denies rash or itching. MUSCULOSKELETAL: Reports low back pain NEUROLOGIC: Reports headache, dizziness PSYCHIATRIC: Denies anxiety or depression. [facility] Past Medical History Medical History DVT (deep venous thrombosis) Hyperlipidemia Hypertension Surgical History Surgical History H/O repair of rotator cuff Family History Family History Mother Dementia Father Stomach cancer Sibling Diabetes mellitus Social History Social History Social History: patient currently lives with his of 30 years Marion who will be his surrogate. They have 4 kids all of them are girls the oldest being 40 in the is being 27. They have 1 dog 1 cat and he wishes to be a full code at this time. Smoking packs per day: 0.5 Smoking cigarettes per day: 10.0 Years smoked: 30 Smoking pack-years: 15.00 Smoking status: Current every day smoker Tobacco type: cigarettes Alcohol intake: current Drinks per week: 112 Alcohol use details: Patient states he drinks roughly a 5th or more a day of Brennan Sosa Substance use: never Additional occupation/education comments: [place] [employer] Gender identity (if verbalized by the patient): Male Sexual Orientation (if Verbalized by the Patient): Straight or Heterosexual Spiritual care concerns: No Agree to blood products: Yes Exam Narrative: GENERAL: Well-appearing, well-nourished, no physical limitations, and in no acute distress. HEAD: Normocephalic, atraumatic. EYES: Conjunctivae normal, PERRLA and EOMI. CHEST: Clear to auscultation. No respiratory distress. No wheezes rales or rhonchi. No tenderness. HEART: Regular rate and rhythm. No murmur heard. Normal peripheral pulses. ABDOMEN: Soft, nontender, nondistended, normal active bowel sounds. BACK: No CVA tenderness; low back tenderness, no midline tenderness, no step-offs, no bony abnormality, full range of motion EXTREMITIES: Normal range of motion. No edema. No clubbing or cyanosis SKIN: Warm, dry, no rash. No noted wounds NEURO: No focal deficits. Alert and oriented x3. MAEW. CN's II-XI intact bilaterally, normal gait.
[2021-10-09] MEDS: ACETAMINOPHEN 500 MG TABLET 1000 MG PO (20:49)
[2021-10-09] MEDS: SODIUM CHLORIDE 0.9% IV 1,000 ML 999 ML IV CONT (20:58)
[2021-10-09 21:12] VITALS: BP 149/97; PULSE 128; RESP 19; O2SAT 94
[2021-10-09 21:14] LABS: Ethanol 188 mg/dL (<10)
[2021-10-09 21:45] VITALS: PULSE 135; RESP 22; O2SAT 96
== END 2021-10-09 21:45 | disposition left against medical advice (07) ==
PROVIDERS: Emergency Provider Nurse Practitioner Family
DX: M54.50 Low back pain, unspecified (principal); S09.90XD Unspecified injury of head, subsequent encounter; F10.129 Alcohol abuse with intoxication, unspecified; E78.5 Hyperlipidemia, unspecified; I10 Essential (primary) hypertension; Z86.718 Personal history of other venous thrombosis and embolism; Y90.6 Blood alcohol level of 120-199 mg/100 ml; W05.0XXD Fall from non-moving wheelchair, subsequent encounter
CPT/HCPCS: 36415; 80307; 96360; 99283; A9270; J7030

== ENCOUNTER 2021-10-11 02:20 | Emergency (ER) | payer SELFPAY ==
[2021-10-11 02:35] VITALS: BP 107/91; PULSE 115; RESP 18; TEMP 36.8; O2SAT 98
--- NOTE | 2021-10-11 05:11 | ED.BACK ---
HPI - Back Pain/Injury General Chief Complaint: Back Pain/Injury Stated Complaint: chronic back pain, bilat leg cramping Time Seen by Provider: 10/11/21 05:00 History of Present Illness HPI Narrative: This is a 56-year-old male, who returns emergency department complaining of sharp low back pain, 5/10, radiating to the right leg. He states he was here 2 days ago with the same. He states his pain is not controlled. He denies loss of bowel or bladder control or weakness/numbness. He denies other falls, though does complain of intermittent cramping of the bilateral arms and legs. Related Data Home Medications Medication Instructions Recorded Confirmed gabapentin 400 mg capsule 1 cap PO DAILY 09/14/21 09/14/21 gabapentin 800 mg tablet 1 tablet PO HS 09/14/21 09/14/21 (Neurontin) Allergies Allergy/AdvReac Type Severity Reaction Status Date / Time ciprofloxacin [From Cipro] Allergy Rash Verified 10/11/21 02:40 mupirocin [From Bactroban] Allergy Hives Verified 10/11/21 02:40 Review of Systems Review of Systems: CONSTITUTIONAL: Denies fever, chills, or sweats. CARDIOVASCULAR: Denies chest pain, palpitations, or edema. RESPIRATORY: Denies cough or dyspnea. GASTROINTESTINAL: Denies abdominal pain, nausea, vomiting, or diarrhea. GENITOURINARY: Denies dysuria or hematuria. SKIN: Denies rash or itching. MUSCULOSKELETAL: Sharp back pain radiating to the right leg denies joint pain, or myalgia. NEUROLOGIC: Denies headache, numbness, dizziness, or weakness. PSYCHIATRIC: Denies anxiety or depression. [facility] Past Medical History Medical History DVT (deep venous thrombosis) Hyperlipidemia Hypertension Surgical History Surgical History H/O repair of rotator cuff Family History Family History Mother Dementia Father Stomach cancer Sibling Diabetes mellitus Social History Social History Social History: patient currently lives with his of 30 years Marion who will be his surrogate. They have 4 kids all of them are girls the oldest being 40 in the is being 27. They have 1 dog 1 cat and he wishes to be a full code at this time. Smoking packs per day: 0.5 Smoking cigarettes per day: 10.0 Years smoked: 30 Smoking pack-years: 15.00 Smoking status: Current every day smoker Tobacco type: cigarettes Alcohol intake: current Drinks per week: 112 Alcohol use details: Patient states he drinks roughly a 5th or more a day of Brennan Sosa Substance use: never Additional occupation/education comments: [employer] Gender identity (if verbalized by the patient): Male Sexual Orientation (if Verbalized by the Patient): Straight or Heterosexual Spiritual care concerns: No Agree to blood products: Yes Exam Narrative: GENERAL: Well-appearing, well-nourished, and in no acute distress. HEAD: Normocephalic, there is a healing, 2 cm laceration over the left eyebrow with [address], EYES: PERRLA and EOMI, resolving infraorbital ecchymosis of the left eye ENT: Nares clear, no rhinorrhea or epistaxis. Mucous membranes moist. Oropharynx without tonsillar hypertrophy exudate or other lesions. NECK: Supple. No adenopathy or masses. No carotid bruits or JVD CHEST: Clear to auscultation. No respiratory distress. No wheezes rales or rhonchi HEART: Regular rate and rhythm. No murmur heard. Normal peripheral pulses. ABDOMEN: Soft, nontender, nondistended, normal active bowel sounds. BACK: Mild tenderness to palpation of the paraspinal region in the L3 to L4 region EXTREMITIES: Normal range of motion. No edema. SKIN: Warm, dry, no rash. NEURO: No focal deficits. Alert and oriented x3. PSYCH: Normal mood and affect. Course Vital Signs Vital signs: Vital Sign
[2021-10-11] MEDS: LIDOCAINE 5% PATCH 1 PATCH TRANSDERM (05:40)
[2021-10-11] MEDS: ONDANSETRON INJ 4 MG/2 ML VIAL IV PUSH (05:44)
[2021-10-11 05:49] VITALS: BP 153/105; PULSE 102; RESP 20; O2SAT 96
[2021-10-11 05:58] LABS: Alanine Aminotransferase 26 U/L (6-50); Albumin Level 4.6 g/dL (3.5-5.1); Alkaline Phosphatase 206 U/L (38-126); Anion Gap 13 mmol/L (8-16); Aspartate Amino Transferase 49 U/L (17-59); Bilirubin,Total 1.3 mg/dL (0.2-1.3); Blood Urea Nitrogen 13 mg/dL (9-20); Calcium 9.1 mg/dL (8.4-10.2); Carbon Dioxide 26 mmol/L (22-30); Chloride 103 mmol/L (98-107); Estimated CRCL calculation 76 ml/min; Estimated Glomerular Filt Rate > 60; Glucose 90 mg/dL (65-110); Potassium 3.9 mmol/L (3.4-5.0); Sodium 142 mmol/L (137-145)
[2021-10-11] MEDS: KETOROLAC 15 MG/ML VIAL (*BKC) IV PUSH (06:35)
[2021-10-11] MEDS: chlordiazePOXIDE (*CRX) 25 MG CAPSULE 50 MG PO (06:42)
[2021-10-11 06:57] VITALS: BP 113/96; PULSE 99; RESP 12; O2SAT 98
== END 2021-10-11 07:34 | disposition home or self-care (01) ==
PROVIDERS: Emergency Provider Preventive Medicine Aerospace Medicine
DX: M54.16 Radiculopathy, lumbar region (principal); F10.239 Alcohol dependence with withdrawal, unspecified; E78.5 Hyperlipidemia, unspecified; I10 Essential (primary) hypertension; Z86.718 Personal history of other venous thrombosis and embolism; F17.210 Nicotine dependence, cigarettes, uncomplicated
CPT/HCPCS: 36415; 80053; 96365; 96375; 99284; A9270; J0131; J1885; J2405

== ENCOUNTER 2021-10-30 11:09 | Emergency (ER) | payer SELFPAY ==
[2021-10-30] VITALS (17 sets, daily range): BP systolic 77–127; BP diastolic 59–92; PULSE 67–93; RESP 11–26; TEMP 36.8; O2SAT 93–100
--- NOTE | ~2021-10-30 | CT_ITS ---
EXAMINATION: CT brain wo con DATE: 10/30/2021 11:50 INDICATION: Transient alteration of awareness. TECHNIQUE: Computed tomography (CT) of the head was performed without intravenous contrast. The mA wa s adjusted according to patient size. Iterative reconstruction technique was employed. The dose-lengt h product was 832.33 mGy-cm. COMPARISON: Head CT 10/09/2021 FINDINGS: There is no intracranial hemorrhage, acute infarction, or abnormal intracranial mass lesion . The ventricles are normal in size. The orbits are normal. There is mild mucosal thickening in the p aranasal sinuses. Vertebral body heights are normal. IMPRESSION: 1. Normal brain. Reviewed, dictated and finalized at location A. IMPRESSION: 1. Normal brain.
--- NOTE | ~2021-10-30 | CT_ITS ---
EXAMINATION: CT shoulder LT wo con DATE: 10/30/2021 14:12 INDICATION: Left shoulder fracture. TECHNIQUE: Computed tomography (CT) of the left shoulder was performed without intravenous contrast. Automated exposure control and iterative reconstruction technique were employed. The dose-length prod uct was 486.58 mGy-cm. COMPARISON: Left shoulder radiographs 10/30/2021 FINDINGS: There is a comminuted fracture of proximal left humerus including involvement of the greate r and lesser tuberosities, anatomic neck, surgical neck, and articular surface. At the greater tubero sity, there is 12 mm posteromedial displacement of the posterior aspect of the greater tuberosity. At the surgical neck, the main distal fracture fragment demonstrates impaction and 1.7 cm medial displa cement. At the lesser tuberosity, there is 8 mm inferior displacement relative to the main articular surface fracture fragment. There is mild osteoarthritis of glenohumeral joint and severe osteoarthrit is of acromioclavicular joint. IMPRESSION: 1. Comminuted, four-part fracture of proximal left humerus. 2. Particular osteoarthritis. Reviewed, dictated and finalized at location A.
--- NOTE | ~2021-10-30 | XR_ITS ---
EXAMINATION: XR shoulder LT min 2V DATE: 10/30/2021 11:54 INDICATION: Left shoulder injury. TECHNIQUE: 3 views of left shoulder were obtained. COMPARISON: None. FINDINGS: There is a comminuted fracture of proximal left humerus involving the greater and lesser tu berosities and surgical neck. The main distal fracture fragment demonstrates 4 mm medial displacement . There is mild osteoarthritis of glenohumeral joint and moderate osteoarthritis of acromioclavicular joint. IMPRESSION: 1. Comminuted one-part fracture of proximal left humerus. 2. Polyarticular osteoarthritis. Reviewed, dictated and finalized at location A.
--- NOTE | 2021-10-30 11:17 | ECG_ITS ---
Measurements Intervals [place] Rate: 72 P: 66 AR: 195 QRS: 42 QRSD: 94 T: 38 QT: 397 QTc: 437 Interpretive Statements SINUS RHYTHM WITH SINUS ARRHYTHMIA COMPARED TO ECG 09/14/2021 03:01:44 THE PATIENT IS NO LONGER TACHYCARDIC Electronically Signed On 10-30-2021 15:15:38 CDT by Suyapa Rico M.D.
--- NOTE | 2021-10-30 11:22 | PC.NURSE ---
o2 sat dropped to 89% while eyes closed, placed on 2l NC
[2021-10-30 11:38] LABS: Basophils Percent Auto 0.5 % (0.2-1.2); Eosinophils Percent Auto 1.1 % (0-4.4); Hematocrit 38.6 % (42.0-52.0); Hemoglobin 12.1 g/dL (14.0-18.0); Immature Granulocyte Absolute 0.01 K/mm3 (0.00-0.031); Immature Granulocyte Percent A 0.3 % (0-0.5); Lymphocytes Absolute Auto 1.23 K/mm3 (0.9-3.2); Lymphocytes Percent Auto 33.8 % (18.3-44.2); Mean Corpuscular HGB Conc 31.3 g/dl (32-36); Mean Corpuscular Hemoglobin 31.1 pg (26-34); Mean Corpuscular Volume 99.2 fl (80-100); Mean Platelet Volume 9.1 fl (7.4-10.4); Monocytes Absolute Auto 0.4 K/mm3 (0.1-0.6); Monocytes Percent Auto 9.6 % (2.6-8.5); Neutrophils Percent Auto 54.7 % (45.5-73.1); Platelet Count Result 156 k/mm3 (150-375); Red Blood Count 3.89 M/mm3 (4.6-6.20); Red Cell Distribution Width 18.6 % (11.5-14.5); White Blood Count 3.6 K/mm3 (4.5-10.0)
[2021-10-30 11:50] LABS: Alanine Aminotransferase 24 U/L (6-50); Albumin Level 3.6 g/dL (3.5-5.1); Alkaline Phosphatase 165 U/L (38-126); Anion Gap 11 mmol/L (8-16); Aspartate Amino Transferase 39 U/L (17-59); Bilirubin,Total 0.3 mg/dL (0.2-1.3); Blood Urea Nitrogen 13 mg/dL (9-20); Calcium 8.7 mg/dL (8.4-10.2); Carbon Dioxide 24 mmol/L (22-30); Chloride 105 mmol/L (98-107); Estimated CRCL calculation 44 ml/min; Estimated Glomerular Filt Rate 52; Glucose 101 mg/dL (65-110); Potassium 4.2 mmol/L (3.4-5.0); Sodium 140 mmol/L (137-145)
--- NOTE | 2021-10-30 12:22 | ED.FALL ---
HPI - Fall General Chief Complaint: Fall Stated Complaint: fall Time Seen by Provider: 10/30/21 11:59 History of Present Illness HPI Narrative: 56-year-old male with history of alcohol abuse presented to the emergency department for evaluation after having a ground-level fall. Patient states he is normally wheelchair-bound but that his family was visiting and he went to show his daughter that he was able to ambulate. Patient states that he stood and took a few steps and then fell to the ground injuring his left shoulder. Patient does admit to drinking alcohol last night but denies any alcohol today. Patient does complain of left shoulder pain but denies any other acute pain or injury. Related Data Home Medications Medication Instructions Recorded Confirmed gabapentin 400 mg capsule 1 cap PO DAILY 09/14/21 09/14/21 gabapentin 800 mg tablet 1 tablet PO HS 09/14/21 09/14/21 (Neurontin) Allergies Allergy/AdvReac Type Severity Reaction Status Date / Time ciprofloxacin [From Cipro] Allergy Rash Verified 10/11/21 02:40 mupirocin [From Bactroban] Allergy Hives Verified 10/11/21 02:40 Review of Systems Review of Systems: CONSTITUTIONAL: Denies fever, chills, or sweats. EYES: Denies visual changes, redness, or discharge. ENT: Denies rhinorrhea, congestion, sore throat, or otalgia. CARDIOVASCULAR: Denies chest pain, palpitations, or edema. RESPIRATORY: Denies cough or dyspnea. GASTROINTESTINAL: Denies abdominal pain, nausea, vomiting, or diarrhea. GENITOURINARY: Denies dysuria or hematuria. SKIN: Denies rash or itching. MUSCULOSKELETAL: Left shoulder pain NEUROLOGIC: Denies headache, numbness, or weakness. [facility] Past Medical History Medical History DVT (deep venous thrombosis) Hyperlipidemia Hypertension Surgical History Surgical History H/O repair of rotator cuff Family History Family History Mother Dementia Father Stomach cancer Sibling Diabetes mellitus Social History Social History Social History: patient currently lives with his of 30 years Marion who will be his surrogate. They have 4 kids all of them are girls the oldest being 40 in the is being 27. They have 1 dog 1 cat and he wishes to be a full code at this time. Smoking packs per day: 0.5 Smoking cigarettes per day: 10.0 Years smoked: 30 Smoking pack-years: 15.00 Smoking status: Current every day smoker Tobacco type: cigarettes Alcohol intake: current Drinks per week: 112 Alcohol use details: Patient states he drinks roughly a 5th or more a day of Brennan Sosa Substance use: never Additional occupation/education comments: [place] [employer] Gender identity (if verbalized by the patient): Male Sexual Orientation (if Verbalized by the Patient): Straight or Heterosexual Spiritual care concerns: No Agree to blood products: Yes Exam Narrative: APPEARANCE: Well appearing, no pain, no distress, well-nourished. HEAD: normocephalic, atraumatic. EYES: PERRLA/EOMI, conjunctivae clear. NOSE: Normal no drainage NECK: Supple. No adenopathy, no masses. RESPIRATORY: Airway patent, respirations nonlabored. Clear to auscultation bilaterally, no rales, rhonchi, wheezing. CARDIOVASCULAR: Regular rate and rhythm without murmurs rubs or gallops. ABDOMINAL: Soft, nontender, nondistended, normal bowel sounds MUSCULOSKELETAL: Moves all extremities. Left arm is neurovascularly intact but has decreased range of motion due to pain. NEURO: Alert. Cranial nerves II through XII intact. Grossly intact SKIN: Warm, dry. Normal Color Course Course Emergency Course: Case is discussed with orthopedics and they are comfortable with the plan for discharge and outpatient follow-up. Patient felt that
[2021-10-30] MEDS: HYDROmorphone HCL INJ (*CRX) 1 MG/ML SYR 0.5 MG IV PUSH (13:20)
[2021-10-30] MEDS: SODIUM CHLORIDE 0.9% IV 1,000 ML 999 ML IV CONT (13:22)
== END 2021-10-30 15:58 | disposition home or self-care (01) ==
PROVIDERS: Emergency Medicine; Emergency Provider Emergency Medicine
DX: S42.92XA Fracture of left shoulder girdle, part unspecified, initial encounter for closed fracture (principal); F17.210 Nicotine dependence, cigarettes, uncomplicated; I10 Essential (primary) hypertension; E78.5 Hyperlipidemia, unspecified; Z86.718 Personal history of other venous thrombosis and embolism; W01.0XXA Fall on same level from slipping, tripping and stumbling without subsequent striking against object, initial encounter
CPT/HCPCS: 36415; 70450; 73030; 73200; 80053; 85025; 93005; 96361; 96374; 99284; J1170; J7030

== ENCOUNTER 2021-11-12 13:27 | Emergency (ER) | payer SELFPAY ==
[2021-11-12] VITALS (21 sets, daily range): BP systolic 93–164; BP diastolic 61–149; PULSE 80–106; RESP 9–20; O2SAT 91–100
--- NOTE | ~2021-11-12 | XR_ITS ---
EXAM: XR wrist RT min 3V DATE: 11/12/2021 14:47 HISTORY: fall . COMPARISON: None available. FINDINGS: Normal mineralization. No fracture or dislocation. No lytic or blastic lesion. Joint space s are maintained. No erosion or periosteal change. Soft tissues within normal limits. IMPRESSION: No acute osseous finding in the right wrist. Reviewed, dictated and finalized at location K.
--- NOTE | ~2021-11-12 | CT_ITS ---
EXAMINATION: CT brain wo con DATE: 11/12/2021 14:30 INDICATION: fall . TECHNIQUE: Computed tomography (CT) of the head was performed without intravenous contrast. The mA wa s adjusted according to patient size. Iterative reconstruction technique was employed. The dose-lengt h product was 832.33 mGy-cm. COMPARISON: 10/30/2021 FINDINGS: Motion required repeat imaging of the skull base. No acute intracranial hemorrhage or extra-axial fluid collection. No hydrocephalus, mass, or herniation. No acute ischemic infarct. Unremarkable dural venous sinus attenuation. No acute osseous abnormality. The aerated spaces are clear. Mild atrophy. Atherosclerotic intracranial calcification. IMPRESSION: No acute intracranial process. Reviewed, dictated and finalized at location K.
--- NOTE | ~2021-11-12 | XR_ITS ---
EXAM: XR shoulder RT min 2V DATE: 11/12/2021 14:47 HISTORY: fall . COMPARISON: None available. FINDINGS: Normal mineralization. No fracture or dislocation. No lytic or blastic lesion. Moderate de generative change in the acromioclavicular and glenohumeral joints. Superior migration of the humeral head as can be seen with cuff pathology. Soft tissue anchors in the right humeral head. No erosion o r periosteal change. Soft tissues within normal limits. IMPRESSION: No acute osseous finding in the right shoulder. Reviewed, dictated and finalized at location K.
--- NOTE | ~2021-11-12 | CT_ITS ---
EXAMINATION: CT facial & cervical spine wo DATE: 11/12/2021 14:30 INDICATION: fall TECHNIQUE: Computed tomography (CT) of the maxillofacial region and cervical spine was performed with out intravenous contrast. Automated exposure control and iterative reconstruction technique were empl oyed. The dose-length product was 472.31 mGy-cm. COMPARISON: 09/16/21 FINDINGS: CERVICAL: Vertebral Body Alignment: Intact. Craniocervical and atlantoaxial alignment: Moderate degenerative change. Alignment intact. Osseous structures/fracture: No evidence of a lytic or blastic process in the visualized spine. No e vidence of acute fracture. Cervical soft tissues: The paraspinal soft tissues planes are maintained. Degenerative changes: Multilevel degenerative disc disease, severe at 6-7. Severe left neural foramin al narrowing and central canal narrowing at C6-7. FACE: Soft Tissues: Left frontal soft tissue contusion. Facial bones: No acute fracture. No lytic or blastic process. Eyes: The globes are intact. The soft tissue planes of the orbits are maintained. Paranasal Sinuses: The visualized aerated spaces are clear. Foreign Bodies: No radiopaque foreign bodies. Other Findings: Dental caries. IMPRESSION: No acute fracture or traumatic malalignment in the cervical spine. No acute facial bone fracture. Reviewed, dictated and finalized at location K. IMPRESSION: No acute fracture or traumatic malalignment in the cervical spine. No acute fac ial bone fracture.
--- NOTE | ~2021-11-12 | XR_ITS ---
EXAMINATION: XR chest 1V Exam Date/Time: 11/12/2021 14:35 CDT HISTORY: fall Comparison: 10/09/2021. RESULT: Lines, tubes, and devices: None. Lungs and pleura: Clear. Cardiomediastinal silhouette: Stable. Other: No acute osseous or upper abdominal finding. IMPRESSION: No acute cardiopulmonary process. Reviewed, dictated and finalized at location K.
--- NOTE | ~2021-11-12 | XR_ITS ---
EXAM: XR pelvis 1-2V DATE: 11/12/2021 14:47 HISTORY: fall . COMPARISON: None available. FINDINGS: Normal mineralization. No fracture or dislocation. No lytic or blastic lesion. Degenerativ e changes in the lumbar spine and bilateral hips. No erosion or periosteal change. Pelvic phleboliths . IMPRESSION: No acute osseous finding in the pelvis. Reviewed, dictated and finalized at location K.
--- NOTE | 2021-11-12 13:28 | ECG_ITS ---
Measurements Intervals [place] Rate: 87 P: 48 [place]: 185 QRS: 61 QRSD: 89 T: 66 QT: 366 QTc: 443 Interpretive Statements SINUS RHYTHM NORMAL ECG COMPARED TO ECG 10/30/2021 12:20:00 NO SIGNIFICANT CHANGES Electronically Signed On 11-12-2021 18:38:04 CDT by Donato Vincent D.O.
[2021-11-12] MEDS: SODIUM CHLORIDE 0.9% IV 1,000 ML 999 ML IV CONT (14:12)
--- NOTE | 2021-11-12 14:17 | ED.CHESTPAIN ---
HPI - Chest Pain General Chief Complaint: Chest Pain Stated Complaint: chest wall pain, shoulder fracture hx Source: patient, family and EMS Mode of arrival: EMS Limitations: no limitations History of Present Illness HPI narrative: 56 years old white male came from home by ambulance complaining pain all over including right shoulder and right wrist. Patient's told me that patient was trying to get out off his wheelchair yesterday morning to go to the couch, lost his balance and fell to the ground. No loss of consciousness, right facial bruises. Patient had history of left shoulder fracture on October 30, with shoulder immobilizer in place. Patient used to be on pain medication, ran out of it. Currently complaining of pain all over his body and would like a pain shot. His is telling me that she does not know what to do with him or for him he drinks daily, heavily over the last 6 days, had a diagnosis of liver cirrhosis, hepatic encephalopathy and kidney failure May 2021 at [facility]. He quit drinking for 1 month then started drinking again. Normally wheelchair-bound Related Data Home Medications Medication Instructions Recorded Confirmed gabapentin 800 mg tablet 1 tablet PO HS 09/14/21 09/14/21 (Neurontin) Allergies Allergy/AdvReac Type Severity Reaction Status Date / Time ciprofloxacin [From Cipro] Allergy Rash Verified 11/12/21 13:44 mupirocin [From Bactroban] Allergy Hives Verified 11/12/21 13:44 Review of Systems Review of Systems: All systems reviewed & are unremarkable except as noted in HPI and below PMFSH Past Medical History Medical History DVT (deep venous thrombosis) Hyperlipidemia Hypertension Surgical History Surgical History H/O repair of rotator cuff Family History Family History Mother Dementia Father Stomach cancer Sibling Diabetes mellitus Social History Social History Social History: patient currently lives with his of 30 years Marion who will be his surrogate. They have 4 kids all of them are girls the oldest being 40 in the is being 27. They have 1 dog 1 cat and he wishes to be a full code at this time. Smoking packs per day: 0.5 Smoking cigarettes per day: 10.0 Years smoked: 30 Smoking pack-years: 15.00 Smoking status: Current every day smoker Tobacco type: cigarettes Alcohol intake: current Drinks per week: 112 Alcohol use details: Patient states he drinks roughly a 5th or more a day of Brennan Sosa Substance use: never Additional occupation/education comments: [place] [employer] Gender identity (if verbalized by the patient): Male Sexual Orientation (if Verbalized by the Patient): Straight or Heterosexual Spiritual care concerns: No Agree to blood products: Yes Exam Narrative: General appearance: Well-developed, well-nourished, laying flat in bed, left shoulder immobilizer, Skin: Normal color quite a bit of bruises of the left shoulder and left upper back with different stages of discoloration secondary to hematoma/ecchymosis Head: Normocephalic, nontraumatic Eyes: Clear conjunctiva ENT: Oropharynx normal, ears normal, nose normal Neck: Supple, nontender Chest and respiratory: Airway patent, no respiratory distress, no accessory muscle use Heart: Regular rate/rhythm Abdomen: Soft, nontender, no organomegaly, quiet bowel sounds Vascular: Normal peripheral pulses, normal capillary refill. Musculoskeletal: Slight limited range of motion of the right upper extremity at the shoulder and at the right wrist, no bruises, no swelling, no deformity Neurologic: Alert and oriented ?3, SUBSTANCE ABUSE CLINICIAN is normal as tested, no gross motor deficit, slurred speech, alcohol on board
[2021-11-12 14:21] LABS: Basophils Percent Auto 0.3 % (0.2-1.2); Eosinophils Absolute Auto 0.1 K/mm3 (0-0.3); Eosinophils Percent Auto 1.7 % (0-4.4); Hematocrit 38.6 % (42.0-52.0); Hemoglobin 12.8 g/dL (14.0-18.0); Immature Granulocyte Absolute 0.03 K/mm3 (0.00-0.031); Immature Granulocyte Percent A 0.5 % (0-0.5); Lymphocytes Absolute Auto 2.02 K/mm3 (0.9-3.2); Lymphocytes Percent Auto 33.6 % (18.3-44.2); Mean Corpuscular HGB Conc 33.2 g/dl (32-36); Mean Corpuscular Hemoglobin 31.5 pg (26-34); Mean Corpuscular Volume 95.1 fl (80-100); Mean Platelet Volume 8.7 fl (7.4-10.4); Monocytes Absolute Auto 0.4 K/mm3 (0.1-0.6); Monocytes Percent Auto 7.1 % (2.6-8.5); Neutrophils Absolute Auto 3.4 K/mm3 (1.3-6.7); Neutrophils Percent Auto 56.8 % (45.5-73.1); Platelet Count Result 205 k/mm3 (150-375); Red Blood Count 4.06 M/mm3 (4.6-6.20)
[2021-11-12 14:32] LABS: INR 1.2; Prothrombin Time 14.9 Seconds (11.1-14.7)
[2021-11-12 14:48] LABS: Alanine Aminotransferase 27 U/L (6-50); Albumin Level 4.1 g/dL (3.5-5.1); Alkaline Phosphatase 279 U/L (38-126); Anion Gap 16 mmol/L (8-16); Aspartate Amino Transferase 66 U/L (17-59); Bilirubin,Total 0.6 mg/dL (0.2-1.3); Blood Urea Nitrogen 21 mg/dL (9-20); Carbon Dioxide 21 mmol/L (22-30); Chloride 104 mmol/L (98-107); Estimated CRCL calculation 68 ml/min; Estimated Glomerular Filt Rate > 60; Glucose 83 mg/dL (65-110); Potassium 4.4 mmol/L (3.4-5.0); Sodium 141 mmol/L (137-145)
[2021-11-12 14:51] LABS: Ethanol 335 mg/dL (<10)
[2021-11-12 14:59] LABS: Troponin I < 0.012 ng/mL (0.000-0.034)
[2021-11-12 15:06] LABS: Ammonia < 9 umol/L (9-30)
[2021-11-12 15:37] LABS: Appearance Urine Clear (Clear); Bilirubin Urine 1+ (Negative); Blood Urine Negative (Negative); Color Urine Yellow (Yellow); Glucose Urine UA Negative (Negative); Ketones Urine Trace mg/dL (Negative); Leukocyte Esterase Ur Negative LEU/UL (Negative); Nitrate Urine Negative (Negative); Protein Urine 1+ mg/dL (Negative); Specific Grav Ur 1.025 (1.001-1.035); Urobilinogen Urine 0.2 mg/dL (<2.0); pH Urine 5.5 (5.0-9.0)
[2021-11-12 16:00] LABS: Add Urine Microscopic? YES
[2021-11-12 16:01] LABS: Amphetamine Screen Urine Negative (Negative); Barbiturate Screen Urine Negative (Negative); Benzodiazepines Screen Urine Positive (Negative); Cannabinoid Screen Urine Positive (Negative); Cocaine Screen Urine Negative (Negative); Methadone Screen Urine Negative (Negative); Opiate Screen Urine Negative (Negative); Phencyclidine Screen Urine Negative (Negative)
[2021-11-12 16:03] LABS: RBC Urine 0-2 /hpf (0-2); WBC Urine None seen /hpf
[2021-11-12] MEDS: MORPHINE SULFATE (*CRX) 4 MG/ML INJ IV PUSH (16:38)
[2021-11-12] MEDS: ONDANSETRON INJ 4 MG/2 ML VIAL IV PUSH (16:39)
== END 2021-11-12 17:40 | disposition home or self-care (01) ==
PROVIDERS: Emergency Provider Emergency Medicine
DX: F10.10 Alcohol abuse, uncomplicated (principal); F12.10 Cannabis abuse, uncomplicated; Y90.8 Blood alcohol level of 240 mg/100 ml or more; F13.20 Sedative, hypnotic or anxiolytic dependence, uncomplicated; I10 Essential (primary) hypertension; E78.5 Hyperlipidemia, unspecified; Z86.718 Personal history of other venous thrombosis and embolism; W01.0XXA Fall on same level from slipping, tripping and stumbling without subsequent striking against object, initial encounter
CPT/HCPCS: 36415; 70450; 70486; 71045; 72125; 72170; 73030; 73110; 80053; 80307; 81001; 82140; 84484; 85025; 85610; 93005; 96361; 96374; 96375; 99284; J2270; J2405; J7030

== ENCOUNTER 2022-03-25 18:37 | Inpatient (IN) | payer SELFPAY ==
[2022-03-25] VITALS (27 sets, daily range): BP systolic 99–149; BP diastolic 74–105; PULSE 77–116; RESP 14–29; TEMP 36.4–36.7; O2SAT 91–100
--- NOTE | ~2022-03-25 | CT_ITS ---
EXAMINATION: CT brain wo con DATE: 03/25/2022 19:57 INDICATION: Confusion TECHNIQUE: Computed tomography (CT) of the head was performed without intravenous contrast. Sagittal and coronal reconstructions were performed. The mA was adjusted according to patient size. Iterative reconstruction technique was employed. The dose-length product was 756.67 mGy-cm. COMPARISON: head CT dated 12/09/2021 FINDINGS: No acute intracranial hemorrhage, acute infarction or abnormal extra axial fluid collection. Symmetri c prominence of the sulci consistent with mild age-appropriate diffuse cerebral volume loss. Ventricl es are normal and symmetric. No mass/mass effect. The orbits, paranasal sinuses and mastoid air cells are normal. IMPRESSION: 1. No acute intracranial process. Reviewed, dictated and finalized at location A. BOSS
--- NOTE | ~2022-03-25 | MR_ITS ---
EXAMINATION: MR brain/brain stem wo con DATE: 03/27/2022 09:05 INDICATION: Dysarthria TECHNIQUE: Magnetic resonance imaging (MRI) of the brain and brainstem was performed without intraven ous contrast. Sequences included sagittal and axial T1-weighted SE, axial diffusion-weighted FS SE, a xial T2*-weighted GRE, axial T2-weighted FLAIR, and axial T2-weighted FSE. Apparent diffusion coeffic ient (ADC) maps were created. COMPARISON: None. FINDINGS: Evaluation mildly limited by motion artifact on multiple sequences. There are no areas of restricted diffusion to suggest acute infarction. There are few scattered foci of nonspecific increased T2 weigh efrain signal intensity in the cerebral white matter which is within normal limits for age. No intracran ial hemorrhage or abnormal intracranial mass lesion. There are no intraparenchymal signal abnormalit ies seen on the other pulse sequences. The ventricles are symmetric and normal in size. There are no abnormal extra-axial fluid collections. Flow voids are seen in the cerebral arteries on the T2-weight ed sequences consistent with their expected patency. Visualized orbits and soft tissues are unremarka ble. IMPRESSION: 1. Normal for age brain MR with no evident acute intracranial process accounting for motion artifact which mildly limits evaluation. Reviewed, dictated and finalized at location A. CLERK DATA ENTRY IMPRESSION: 1. Normal for age brain MR with no evident acute intracranial process accountin g for motion artifact which mildly limits evaluation.
--- NOTE | ~2022-03-25 | XR_ITS ---
EXAMINATION: XR barium swallow modified DATE: 03/30/2022 INDICATION: Aspiration TECHNIQUE: Modified barium esophagram was performed by myself who administered fluoroscopy, in conju nction with speech pathologist who administered barium in varying consistencies as per speech patholo gist documentation. This was recorded on tape. A single fluoroscopic spot image was recorded. Fluoros copy exposure time was 3.6 minutes. The DAP for this procedure was 3.228 Gycm2. FINDINGS: Oral stage: Adequate function. Pharyngeal phase: Adequate function. Laryngeal penetration: Flash penetration with thin liquids, then cleared. Aspiration: None. Laryngeal sensitivity: Present. IMPRESSION: Flash laryngeal penetration with thin liquids. Please refer to speech pathologist finding s and specific feeding recommendations. Reviewed, dictated and finalized at location A. SHOW ENTERTAINER IMPRESSION: Flash laryngeal penetration with thin liquids. Please refer to kalani durham pathologist findings and specific feeding recommendations.
--- NOTE | ~2022-03-25 | US_ITS ---
Limited Abdominal Sonogram: Real-time sonographic imaging of the right upper quadrant was performed. Clinical History: Dilated gallbladder Findings: The liver appears normal with no evidence of mass lesion or bile duct dilatation. Main por junior vein demonstrates normal direction of flow. The gallbladder is well distended, and appears normal with no evidence of gallstone or wall thickening. Focal area of comet-tail artifact noted of the gal lbladder. The common bile duct measures 3 mm. The visualized pancreas, aorta, and IVC are unremarkab le. Impression: Findings suggestive of focal adenomyomatosis or cholesterolosis of the gallbladder. No other significant findings. Reviewed, dictated and finalized at location . RMATION TECHNOLOGY ANALYST Impression: Findings suggestive of focal adenomyomatosis or cholesterolosis of the gallblad donovan. No other significant findings.
--- NOTE | ~2022-03-25 | CT_ITS ---
EXAMINATION: CTA chest PE abdomen pel DATE: 03/25/2022 19:57 INDICATION: Hypoxia. Altered mental status. TECHNIQUE: Computed tomography (CT) pulmonary angiogram of the chest was performed with 100 mL Omnipa que-350 intravenous contrast. Additional 3D reconstructions utilizing coronal maximum intensity proje ction (MIP) were performed. CT of the abdomen and pelvis was performed with intravenous contrast util izing the same contrast bolus following a short delay. Automated exposure control and iterative recon struction technique were employed. The dose-length product was 1341.41 mGy-cm. COMPARISON: None FINDINGS: Chest: Excellent contrast opacification of the pulmonary arteries. There is mild streak artifact from dense contrast in the superior vena cava and right atrium. Mild scattered respiratory motion artifact promi nent in the left lower lung zone where it mildly decreases sensitivity in some of the smaller segment al and subsegmental pulmonary arteries. No pulmonary embolism. No pneumonia, pulmonary edema or pleur al effusion. Heart size is normal. No pericardial effusion. Atherosclerotic coronary artery calcifica tion. Thoracic aorta is normal in caliber with no dissection. No pathologically enlarged thoracic lym phadenopathy. Chronic comminuted fracture of the proximal left humerus which does not yet appear allison dly united. Abdomen/pelvis: Gallbladder is dilated to 5 cm in diameter but without associated wall thickening or pericholecystic inflammatory stranding to more specifically suggest acute cholecystitis. There is heterogeneous atten uation of the liver without evident discrete mass which could be related to either a provided history of cirrhosis and/or diffuse hepatic steatosis. The pancreas, spleen, bilateral adrenal glands and ki dneys are normal. There extensive colonic diverticulosis without adjacent inflammatory change to sugg est diverticulitis. Small bowel and appendix are normal. Decompressed bladder is unremarkable. Prost atomegaly. No free intraperitoneal gas or fluid. No pathologically enlarged abdominal or pelvic lymph adenopathy. Small fat-containing right inguinal hernia. Chronic mild anterior wedging of a few verteb ral bodies at the thoracolumbar junction. Mild lumbar spondylosis. Small fat-containing umbilical her naye. IMPRESSION: 1. No pulmonary embolism or other acute cardiopulmonary disease. 2. Gallbladder dilated to 5 cm but without associated wall thickening or pericholecystic inflammatory stranding to more specifically suggest acute cholecystitis. Correlate clinically for Woodward sign and if clinically indicated this can be further evaluated with other right upper quadrant ultrasound or HIDA scan. 3. Diverticulosis. 4. Heterogeneous hepatic attenuation without discrete mass which could be due to either provided hist ory of cirrhosis and/or diffuse hepatic steatosis. 5. Small fat-containing umbilical and right inguinal hernias. 6. Prostatomegaly. Reviewed, dictated and finalized at location A. T DESK ASSOCIATE IMPRESSION: 1. No pulmonary embolism or other acute cardiopulmonary disease. 2. Gallbladder dilated to 5 cm but without associated wall thickening or perich olecystic inflammatory stranding to more specifically suggest acute cholecystit is. Correlate clinically for Woodward sign and if clinically indicated this can b e further evaluated with other right upper quadrant ultrasound or HIDA scan. 3. Diverticulosis. 4. Heterogeneous hepatic attenuation without discrete mass which could be due t o either provided history of cirrhosis and/or diffuse hepatic steatosis. 5. Small fat-containing umbilical and right inguinal hernias. 6. Prostatomegaly.
--- NOTE | 2022-03-25 18:43 | ECG_ITS ---
Measurements Intervals [place] Rate: 91 P: 67 [place]: 174 QRS: 36 QRSD: 85 T: 27 QT: 362 QTc: 445 Interpretive Statements SINUS RHYTHM ST-T WAVE ABNORMALITY IN ANTEROLAT/INF LEADS- CONSIDER ISCHEMIA BASELINE ARTIFACT- I, II, AVR, AVL, AVF ABNORMAL ECG COMPARED TO ECG 11/12/2021 13:28:49 ST-WAVE ABNORMALITY NOW PRESENT Electronically Signed On 03-26-2022 8:24:30 [employer] by Donato Vincent D.O.
[2022-03-25 19:01] LABS: Basophils Percent Auto 0.7 % (0.2-1.2); Eosinophils Absolute Auto 0.1 K/mm3 (0-0.3); Eosinophils Percent Auto 1.5 % (0-4.4); Hematocrit 36.3 % (42.0-52.0); Hemoglobin 12.2 g/dL (14.0-18.0); Immature Granulocyte Absolute 0.02 K/mm3 (0.00-0.031); Immature Granulocyte Percent A 0.3 % (0-0.5); Lymphocytes Absolute Auto 1.35 K/mm3 (0.9-3.2); Mean Corpuscular HGB Conc 33.6 g/dl (32-36); Mean Corpuscular Hemoglobin 30.5 pg (26-34); Mean Corpuscular Volume 90.8 fl (80-100); Mean Platelet Volume 9.7 fl (7.4-10.4); Monocytes Absolute Auto 0.6 K/mm3 (0.1-0.6); Monocytes Percent Auto 9.8 % (2.6-8.5); Neutrophils Percent Auto 65.7 % (45.5-73.1); Nucleated Red Blood Cells Perc 0.3 % (0.0-0.2); Platelet Count Result 141 k/mm3 (150-375); Red Cell Distribution Width 17.7 % (11.5-14.5); White Blood Count 6.1 K/mm3 (4.5-10.0)
[2022-03-25 19:10] LABS: Ammonia < 9 umol/L (9-30); INR 1.1; Lactic Acid Reflex 2.1 mmol/L (0.7-2.0); Partial Thromboplastin Time 30.2 SECONDS (22.3-36.8); Prothrombin Time 14.1 Seconds (11.1-14.7)
--- NOTE | 2022-03-25 19:13 | ED.AMS ---
HPI - Altered Mental Status General Chief Complaint: Altered Mental Status Stated Complaint: AMS Time Seen by Provider: 03/25/22 18:59 History of Present Illness HPI narrative: HPI limited due to altered mental status This is a 57-year-old male with past medical history of alcohol abuse and cirrhosis, brought in by EMS for altered mental status for the past 3 days. Per nursing staff, EMS reports patient stopped taking his medications 3 months ago but became confused 3 days ago. The patient denies headache, chest pain or difficulty breathing but does not elaborate further. Related Data Home Medications Medication Instructions Recorded Confirmed gabapentin 800 mg tablet 1 tablet PO HS 09/14/21 09/14/21 (Neurontin) Allergies Allergy/AdvReac Type Severity Reaction Status Date / Time ciprofloxacin [From Cipro] Allergy Rash Verified 11/12/21 13:44 mupirocin [From Bactroban] Allergy Hives Verified 11/12/21 13:44 Review of Systems Review of Systems: Unable to obtain review of systems due to altered mental status CVS: Denies chest pain PULM: Denies shortness of breath NEURO: Denies headache PMFSH Past Medical History Medical History (Updated 03/25/22 @ 23:02 by Elida Javier NP) DVT (deep venous thrombosis) History of alcoholism Hyperlipidemia Hypertension Surgical History Surgical History H/O repair of rotator cuff Family History Family History Mother Dementia Father Stomach cancer Sibling Diabetes mellitus Social History Social History Social History: patient currently lives with his of 30 years Marion who will be his surrogate. They have 4 kids all of them are girls the oldest being 40 in the is being 27. 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 occcig drink Smoking packs per day: 0.5 Smoking cigarettes per day: 10.0 Years smoked: 30 Smoking pack-years: 15.00 Smoking status: Current every day smoker Tobacco type: cigarettes Alcohol intake: current Drinks per week: 112 Alcohol use details: Patient states he drinks roughly a 5th or more a day of Brennan Ian Substance use: never Additional occupation/education comments: [place] [employer] Gender identity (if verbalized by the patient): Male Sexual Orientation (if Verbalized by the Patient): Straight or Heterosexual Spiritual care concerns: No Agree to blood products: Yes Exam Narrative: GENERAL: Well-developed, well-nourished, appears confused HEAD: Normocephalic, atraumatic. EYES: PERRLA and EOMI. ENT: Nares clear, no rhinorrhea or epistaxis. Mucous membranes dry. Oropharynx without tonsillar hypertrophy exudate or other lesions CHEST: Clear to auscultation. No respiratory distress. No wheezes rales or rhonchi HEART: Tachycardic with regular rhythm. No murmur heard. Normal peripheral pulses. ABDOMEN: Soft, minimal diffuse tenderness to palpation, nondistended, normal active bowel sounds. EXTREMITIES: Normal range of motion. No edema. SKIN: Warm, dry, no rash. NEURO: No focal deficits. Moves all 4 extremities purposefully. Mild ataxia noted. Alert and oriented x3. Course Course Emergency Course: 19:15 - Bedside ultrasound of the abdomen performed by me does not demonstrate intra-abdominal free fluid. 21:55 - Chemistries demonstrate mild hyponatremia at 133, hypokalemia at 2.9 with a slightly elevated BUN at 21 and normal creatinine 0.8. Lactic acid slightly elevated at 2.1. Ammonia less than 9 with a total bili of 1.9 and mild AST ALT elevation at 150/94. UA demonstrates elevated urine bilirubin but is not concerning for UTI. Salicylates and acetaminophen negative with a negative alcohol level. The patient tested negative for influenza and COVID. Head CT was unremarkable. PE
[2022-03-25 19:16] LABS: Alanine Aminotransferase 94 U/L (6-50); Albumin Level 3.9 g/dL (3.5-5.1); Alkaline Phosphatase 305 U/L (38-126); Anion Gap 12 mmol/L (8-16); Aspartate Amino Transferase 150 U/L (17-59); Bilirubin,Total 1.9 mg/dL (0.2-1.3); Blood Urea Nitrogen 21 mg/dL (9-20); Calcium 8.9 mg/dL (8.4-10.2); Carbon Dioxide 30 mmol/L (22-30); Chloride 91 mmol/L (98-107); Estimated CRCL calculation 79 ml/min; Estimated Glomerular Filt Rate > 60; Glucose 103 mg/dL (65-110); Magnesium 1.7 mg/dL (1.6-2.3); Potassium 2.9 mmol/L (3.4-5.0); Sodium 133 mmol/L (137-145)
[2022-03-25 19:26] LABS: Mucus Urine Moderate /lpf; RBC Urine 51-75 /hpf (0-2); WBC Urine 0-3 /hpf
[2022-03-25 19:27] LABS: Appearance Urine Clear (Clear); Bilirubin Urine 3+ (Negative); Blood Urine 2+ (Negative); Color Urine Yellow (Yellow); Glucose Urine UA Negative (Negative); Ketones Urine 2+ mg/dL (Negative); Leukocyte Esterase Ur Negative LEU/UL (Negative); Nitrate Urine Negative (Negative); Protein Urine 1+ mg/dL (Negative); Specific Grav Ur 1.025 (1.001-1.035); Urobilinogen Urine >=8.0 mg/dL (<2.0); pH Urine 5.5 (5.0-9.0)
[2022-03-25 19:27] LABS: Acetaminophen < 10 ug/mL (10-30); Salicylate < 1.0 mg/dL (2-20)
[2022-03-25 19:28] LABS: Add Urine Microscopic? YES
[2022-03-25] MEDS: THIAMINE HCL 200 MG/2 ML VIAL 100 MG IV PUSH (19:28)
[2022-03-25 19:29] LABS: Ethanol < 10 mg/dL (<10)
[2022-03-25] MEDS: FOLIC ACID 1 MG/0.2 ML INJ IV PUSH (19:29)
[2022-03-25] MEDS: MIDAZOLAM HCL (*CRX) 2 MG/2 ML VIAL IV PUSH ×2 (19:33→19:41)
[2022-03-25] MEDS: SODIUM CHLORIDE 0.9% IV 1,000 ML 999 ML IV CONT (20:00)
[2022-03-25] MEDS: POTASSIUM CHLORIDE INJ 40 MEQ in SODIUM CHLORIDE 0.9% IV 500 ML 130 MEQ IVPB (20:00)
[2022-03-25 20:08] LABS: Influenza A QL RT-PCR Negative (Negative); Influenza B QL RT-PCR Negative (Negative); SARS-CoV-2 RNA PCR Negative
[2022-03-25 21:24] LABS: Alveolar/Arterial O2 Gradient 12.3 mmHg; Base Excess ABG 2.7 mEq/l (+/-2.0); Fractional Inspired Oxygen 21 %; HCO3 ABG 23.2 mEq/l (22.0-26.0); Oxygen Content ABG 17.3 %vol (16.0-22.0); Oxygen Saturation ABG 98.6 % (95.0-100.0); Oxyhemoglobin 96.8 % THb (90.0-100.0); PCO2 ABG 24.7 mmHg (35.0-45.0); PO2 ABG 107.9 mmHg (80.0-100.0); PO2 FiO2 Ratio Arterial Blood 5.14 %; Total Hemoglobin 12.6 g/dL (12.0-18.0)
[2022-03-25 21:26] LABS: Site Drawn LEFT RADIAL; pH ABG 7.591 (7.350-7.450)
[2022-03-25 21:27] LABS: Device ROOM AIR; Modified Allen's Test Pass
--- NOTE | 2022-03-25 21:53 | PM.IMHP ---
H&P: HPI History of Present Illness Date/Time: 03/25/22 21:53 Chief Complaint: Altered mental status Narrative: This is a 57-year-old male patient who has a history of cirrhosis secondary to alcohol abuse. The patient has had altered mental status for 3 days. The patient has stopped taking his medications 3 months ago but became more confused 3 days ago. The patient is typically wheelchair bound. The patient stated that he still occasionally drinks alcohol. H&H is 12.2 and 36.3 which is his baseline. PH 7.59. Sodium 133, potassium 2.9 and chloride 91. Anion gap is 12. Lactic acid is 2.1. Total bilirubin 1.9. AST is 150, ALT 94 and alkaline phosphatase 305. Lipase is 941 TSH is 1.56. The patient has 3+ bilirubin. His at though alcohol level was less than 10 and he was positive for cannabinoids. Salicylate less than 1.0 and Tylenol less than 10. Negative for influenza A/B and COVID. Chest abdomen pelvis CTA was read as the following 1. No pulmonary embolism or other acute cardiopulmonary disease. 2. Gallbladder dilated to 5 cm but without associated wall thickening or pericholecystic inflammatory stranding to more specifically suggest acute cholecystitis. Correlate clinically for Woodward sign and if clinically indicated this can be further evaluated with other right upper quadrant ultrasound or HIDA scan. 3. Diverticulosis. 4. Heterogeneous hepatic attenuation without discrete mass which could be due to either provided history of cirrhosis and/or diffuse hepatic steatosis. 5. Small fat-containing umbilical and right inguinal hernias. 6. Prostatomegaly. Hit CV T was read as no acute intracranial process. The patient is being admitted for observation status on the date of service of 03/25/2022. Review of Systems Review of Systems: See HPI All systems reviewed & are unremarkable except as noted in HPI and below Constitutional: Constitutional: Reports as per HPI and Reports no additional constitutional complaints Eyes: Eyes: Reports as per HPI and Reports no additional eye complaints ENT: Reports system reviewed and no additional complaints, except as documented and Reports Normal hearing present Cardiovascular: Cardiovascular: Reports no additional cardiovascular complaints Respiratory: Respiratory: Reports no additional respiratory complaints and Reports no additional respiratory complaints Gastrointestinal: Gastrointestinal: Reports as per HPI and Reports no additional gastrointestinal complaints Musculoskeletal: Musculoskeletal: Reports no additional musculoskeletal complaints Integumentary/Breasts: Skin/Breast: Reports system reviewed and no additional complaints, except as docu and Reports as per HPI Neurologic: Reports system reviewed and no additional complaints, except as documented, Reports as per HPI and Reports Normal hearing present Psychiatric: Psychiatric: Reports no additional psychiatric complaints and Reports as per HPI Endocrine: Endocrine: Reports no additional endocrine complaints Hematologic/Lymphatic: Hematologic/Lymphatic: Reports no additional hematologic/lymphatic complaints Allergic/Immunologic: Allergic/Immunologic: Reports no additional allergic/immunologic complaints PMFSH Past Medical History Medical History (Updated 03/25/22 @ 23:29 by Elida Javier NP) DVT (deep venous thrombosis) History of alcoholism Hyperlipidemia Hypertension Surgical History Surgical History H/O repair of rotator cuff Family History Family History Mother Dementia Father Stomach cancer Sibling Diabetes mellitus Social History Social History (Updated 03/25/22 @ 23:09 by Elida Javier NP) Social History: patient currently lives with his of [place] who will be his surrogate. They have 4 kids all of them are girls . They have 1 dog and 1 cat. He is retired as a skilled nursing gaurd in [employer]
[2022-03-25 21:56] LABS: Reflex Lactic Acid Yes or No Add Lactic
[2022-03-25 22:27] LABS: Amphetamine Screen Urine Negative (Negative); Barbiturate Screen Urine Negative (Negative); Benzodiazepines Screen Urine Negative (Negative); Cannabinoid Screen Urine Positive (Negative); Cocaine Screen Urine Negative (Negative); Methadone Screen Urine Negative (Negative); Opiate Screen Urine Negative (Negative); Phencyclidine Screen Urine Negative (Negative)
[2022-03-25 22:30] LABS: Lipase 948 U/L (23-300)
[2022-03-25 23:21] LABS: Lactic Acid 3.2 mmol/L (0.7-2.0)
[2022-03-25 23:39] LABS: Glucose Point of Care 97 mg/dl (65-105)
[2022-03-25] MEDS: LORazepam INJ (*CRX) 2 MG/ML VIAL 0.5 MG IV PUSH (23:57)
[2022-03-26] VITALS (9 sets, daily range): BP systolic 105–128; BP diastolic 69–88; PULSE 79–115; RESP 18–20; TEMP 36.2–36.7; O2SAT 97–98; BMI 25.2
[2022-03-26] MEDS: traZODone HCL 50 MG TABLET PO (00:57)
[2022-03-26] MEDS: MAGNESIUM SULF 2 GM/WATER 50ML 2 GM/50 ML BAG IVPB (00:59)
[2022-03-26] MEDS: SODIUM CHLORIDE 0.9% IV 1,000 ML 75 ML IV CONT (01:01)
[2022-03-26 05:56] LABS: Basophils Percent Auto 0.5 % (0.2-1.2); Eosinophils Absolute Auto 0.1 K/mm3 (0-0.3); Eosinophils Percent Auto 1.7 % (0-4.4); Hematocrit 31.1 % (42.0-52.0); Hemoglobin 10.4 g/dL (14.0-18.0); Immature Granulocyte Absolute 0.03 K/mm3 (0.00-0.031); Immature Granulocyte Percent A 0.5 % (0-0.5); Lymphocytes Absolute Auto 1.23 K/mm3 (0.9-3.2); Lymphocytes Percent Auto 18.7 % (18.3-44.2); Mean Corpuscular HGB Conc 33.4 g/dl (32-36); Mean Corpuscular Hemoglobin 30.8 pg (26-34); Mean Platelet Volume 9.4 fl (7.4-10.4); Monocytes Absolute Auto 0.7 K/mm3 (0.1-0.6); Monocytes Percent Auto 11.1 % (2.6-8.5); Neutrophils Absolute Auto 4.5 K/mm3 (1.3-6.7); Neutrophils Percent Auto 67.5 % (45.5-73.1); Nucleated Red Blood Cells Perc 0.5 % (0.0-0.2); Platelet Count Result 134 k/mm3 (150-375); Red Blood Count 3.38 M/mm3 (4.6-6.20); Red Cell Distribution Width 17.5 % (11.5-14.5); White Blood Count 6.6 K/mm3 (4.5-10.0)
[2022-03-26 06:04] LABS: Lactic Acid Reflex 1.3 mmol/L (0.7-2.0)
[2022-03-26 06:07] LABS: Glucose Point of Care 82 mg/dl (65-105)
[2022-03-26 06:08] LABS: Alanine Aminotransferase 79 U/L (6-50); Albumin Level 3.4 g/dL (3.5-5.1); Alkaline Phosphatase 259 U/L (38-126); Anion Gap 11 mmol/L (8-16); Aspartate Amino Transferase 109 U/L (17-59); Bilirubin,Total 1.7 mg/dL (0.2-1.3); Blood Urea Nitrogen 19 mg/dL (9-20); Calcium 8.2 mg/dL (8.4-10.2); Carbon Dioxide 25 mmol/L (22-30); Chloride 101 mmol/L (98-107); Estimated CRCL calculation 86 ml/min; Estimated Glomerular Filt Rate > 60; Glucose 79 mg/dL (65-110); Lactate Dehydrogenase 134 U/L (120-246); Magnesium 2.5 mg/dL (1.6-2.3); Potassium 2.9 mmol/L (3.4-5.0); Sodium 137 mmol/L (137-145)
[2022-03-26] MEDS: chlordiazePOXIDE (*CRX) 25 MG CAPSULE PO ×3 (08:33→18:19)
[2022-03-26] MEDS: THIAMINE HCL 100 MG TABLET PO (08:33)
[2022-03-26] MEDS: FOLIC ACID 1 MG TABLET PO (08:33)
--- NOTE | 2022-03-26 12:20 | WPDGICN ---
Assessment and Plan Assessment and plan (1) Alcohol withdrawal delirium: Code(s): F10.931 - Alcohol use, unspecified with withdrawal delirium Status: Acute Assessment and Plan: ciwa protocol and on meds as needed risk for DT thiamine, mvi, etc (2) Acute encephalopathy: Code(s): G93.40 - Encephalopathy, unspecified Status: Acute Assessment and Plan: monitor (3) Cirrhosis, alcoholic: Code(s): K70.30 - Alcoholic cirrhosis of liver without ascites Status: Acute Assessment and Plan: liver enzymes c/w with alcohol abuse, continue to monitor he is an alcoholic per history (4) Hypokalemia: Code(s): E87.6 - Hypokalemia Status: Acute Assessment and Plan: replete (5) Malnutrition: Code(s): E46 - Unspecified protein-calorie malnutrition Status: Acute Assessment and Plan: risk of malnutrition replete low lytes (6) Elevated liver enzymes: Code(s): R74.8 - Abnormal levels of other serum enzymes Status: Acute Assessment and Plan: from alcohol abuse get hepatitis panel GI Consult Note Consult date/time: 03/26/22 12:20 Reason for consult: alcoholic cirrhosis, withdrawal, liver disease HPI: Estiven Singletary is a 57 year old male with history of cirrhosis secondary to alcohol abuse (history is obtained from records since he is confused). The patient has had altered mental status for 3 days and normally he is typically wheelchair bound.? Blood work showed H&H is 12.2 and 36.3 near baseline, Sodium 133, potassium 2.9, Lactic acid is 2.1.? Total bilirubin 1.9.? AST is 150, ALT 94 and alkaline phosphatase 305.? Lipase is 941 TSH is 1.56.?His at though alcohol level was less than 10 and he was positive for cannabinoids.?\Negative for influenza A/B and COVID.? Chest abdomen pelvis CTA reviewed and negative for PE, liver disease, GB dilated to 5 cm but no evidence of acute cholecystitis.He is confused, on CIWA protocol and he has a sitter. Review of Systems Review of Systems: ROS unobtainable: Yes unobtainable due to medical condition and unobtainable due to mental status PMFSH Past Medical History Medical History (Updated 03/26/22 @ 12:26 by Keith Ayala MD) Acute encephalopathy Alcohol withdrawal delirium Cirrhosis, alcoholic DVT (deep venous thrombosis) Elevated liver enzymes History of alcoholism Hyperlipidemia Hypertension Malnutrition Surgical History Surgical History H/O repair of rotator cuff Family History Family History Mother Dementia Father Stomach cancer Sibling Diabetes mellitus Social History Social History (Updated 03/25/22 @ 23:09 by Elida Javier NP) Social History: patient currently lives with his of [place] who will be his surrogate. They have 4 kids all of them are girls . They have 1 dog and 1 cat. 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 The patient stated he still occasionally smokes a cigarette and he occasionally has a drink a Brennan Sosa. Code status full code Smoking packs per day: 0.5 Smoking cigarettes per day: 10.0 Years smoked: 30 Smoking pack-years: 15.00 Smoking status: Current every day smoker Tobacco type: cigarettes Alcohol intake: current Drinks per week: 14 Alcohol use details: Patient states he drinks roughly a 5th or more a day of Brennan Sosa Substance use: current Substance use type: marijuana Lack of Transportation: No Lack of Food: Never True Current Housing: I Have Housing Concerned About Future Housing: No Difficulty Paying Gas/Electric Bills: No Difficulty Paying for Meds: No Currently Unemployed: No Education: High School Diploma/GED Difficulty w/ Childcare or Family Care: No Additional occupation/education comments: [employer] Gender
[2022-03-26 12:36] LABS: Glucose Point of Care 110 mg/dl (65-105)
[2022-03-26] MEDS: THIAMINE HCL INJ 100 MG, FOLIC ACID INJ 1 MG, MULTIVITAMINS-12 INJ VIAL 1 5 ML, MULTIVI... IV CONT (12:41)
[2022-03-26] MEDS: KCL 40 MEQ/D5 1/2NS 1,000 ML 100 ML IV CONT (12:42)
[2022-03-26] MEDS: LORazepam INJ (*CRX) 2 MG/ML VIAL 1 MG IV PUSH (12:44)
--- NOTE | 2022-03-26 16:06 | PM.IMPN ---
Progress Note: A&P Assessment and Plan (1) Altered mental status: Code(s): R41.82 - Altered mental status, unspecified Status: Acute Assessment and Plan: Suspect Wernicke-Korsakoff syndrome, high-dose thiamine given t.i.d. for the next few days, monitor response Consider Neurology consultation Brain MRI ordered Neurochecks Monitor CIWA (2) History of alcoholism: Code(s): F10.21 - Alcohol dependence, in remission Status: Acute Assessment and Plan: Follow CIWA score, continue scheduled Librium, Ativan for breakthrough withdrawal symptoms D5 half-normal +40 mEq of potassium IV fluids given (3) DVT (deep venous thrombosis): Code(s): I82.409 - Acute embolism and thrombosis of unspecified deep veins of unspecified lower extremity Status: Acute Assessment and Plan: Continue home Eliquis, monitor (4) Hypertension: Code(s): I10 - Essential (primary) hypertension Status: Acute Assessment and Plan: P.r.n. hydralazine (5) Hyperlipidemia: Code(s): E78.5 - Hyperlipidemia, unspecified Status: Acute (6) Hypokalemia: Code(s): E87.6 - Hypokalemia Status: Acute Assessment and Plan: Monitor and replace as needed Magnesium greater than 2 Plan DVT prophylaxis with Eliquis GI prophylaxis with PPI Code status full code Subjective Date/time seen: 03/26/22 16:06 Interval history: No overnight events noted. No chest pain or shortness of breath. No nausea, vomiting or diarrhea. No fevers or chills. Review of Systems Review of Systems: 12 point review of systems was assessed and was negative except as noted in the HPI Exam Narrative: General: No acute distress, slurred speech, somewhat tremulous HEENT: Atraumatic, normocephalic, mucous membranes moist CV: Regular rate and rhythm, S1, S2 Lungs: Clear to auscultation bilaterally, no rales or crackles noted, no wheezes, good air entry Abdomen: Soft, nontender, nondistended Extremities: Normal to inspection Skin: No rashes noted, no lesions or wounds seen Psych: Unable to assess, seems irritable Neuro: Cranial nerves 2-12 grossly intact, slurred speech noted, unsure of baseline, strength +5/5 upper and lower extremities bilaterally, slight tremors noted in B/L UE Objective Data Vital Signs Vital Signs: Vital Signs - 24 hr 03/25/22 18:51 03/25/22 19:59 03/25/22 20:00 Temperature 97.6 F Pulse Rate 95 81 80 Pulse Rate [Right Radial Palpation] Respiratory Rate 16 21 H 22 H Blood Pressure 123/86 Pulse Oximetry 95 91 Oxygen Delivery 03/25/22 20:01 03/25/22 20:15 03/25/22 20:24 Temperature Pulse Rate 82 77 89 Pulse Rate [Right Radial Palpation] Respiratory Rate 24 H 20 20 Blood Pressure 128/85 119/95 H Pulse Oximetry 94 91 Oxygen Delivery 03/25/22 20:30 03/25/22 20:32 03/25/22 21:51 Temperature Pulse Rate 86 91 101 H Pulse Rate [Right Radial Palpation] Respiratory Rate 20 26 H Blood Pressure 99/74 L Pulse Oximetry 98 100 Oxygen Delivery 03/25/22 20:33 03/25/22 20:45 03/25/22 21:02 Temperature Pulse Rate 89 92 93 Pulse Rate [Right Radial Palpation] Respiratory Rate 16 16 25 H Blood Pressure Pulse Oximetry 100 100 99 Oxygen Delivery 03/25/22 21:15 03/25/22 21:19 03/25/22 21:30 Temperature Pulse Rate 84 91 85 Pulse Rate [Right Radial Palpation] Respiratory Rate 17 17 15 Blood Pressure 102/78 Pulse Oximetry 100 99 100 Oxygen Delivery 03/25/22 21:31 03/25/22 21:45 03/25/22 22:00 Temperature Pulse Rate 91 100 99 Pulse Rate [Right Radial Palpation] Respiratory Rate 22 H 19 29 H Blood Pressure 114/101 H Pulse Oximetry 100 99 97 Oxygen Delivery 03/25/22 22:01 03/25/22 22:02 03/25/22 22:17 Temperature Pulse Rate 96 100 Pulse Rate [Right Radial Palpation] Respiratory Rate 14 Blood Pressure 149/105 H 128/105 H Pulse Oximetry 100 Oxygen Delive
[2022-03-26 17:41] LABS: Glucose Point of Care 125 mg/dl (65-105)
[2022-03-26] MEDS: APIXABAN 5 MG TABLET PO (18:18)
[2022-03-26] MEDS: PANTOPRAZOLE 40 MG TABLET PO (18:18)
[2022-03-26] MEDS: THIAMINE 500 MG/NS 100 ML 500 MG/100 ML BAG 200 MG IVPB (21:04)
[2022-03-27] VITALS (9 sets, daily range): BP systolic 98–128; BP diastolic 51–88; PULSE 67–94; RESP 16–18; TEMP 36.1–36.6; O2SAT 95–96; BMI 25.2
[2022-03-27 00:46] LABS: Glucose Point of Care 112 mg/dl (65-105)
[2022-03-27] MEDS: KCL 40 MEQ/D5 1/2NS 1,000 ML 100 ML IV CONT ×2 (05:01→23:18)
[2022-03-27 05:33] LABS: Basophils Percent Auto 0.7 % (0.2-1.2); Eosinophils Absolute Auto 0.1 K/mm3 (0-0.3); Eosinophils Percent Auto 2.3 % (0-4.4); Hematocrit 27.3 % (42.0-52.0); Hemoglobin 8.8 g/dL (14.0-18.0); Immature Granulocyte Absolute 0.02 K/mm3 (0.00-0.031); Immature Granulocyte Percent A 0.5 % (0-0.5); Lymphocytes Absolute Auto 1.25 K/mm3 (0.9-3.2); Lymphocytes Percent Auto 29.1 % (18.3-44.2); Mean Corpuscular HGB Conc 32.2 g/dl (32-36); Mean Corpuscular Hemoglobin 30.3 pg (26-34); Mean Corpuscular Volume 94.1 fl (80-100); Mean Platelet Volume 9.8 fl (7.4-10.4); Monocytes Absolute Auto 0.4 K/mm3 (0.1-0.6); Monocytes Percent Auto 9.8 % (2.6-8.5); Neutrophils Absolute Auto 2.5 K/mm3 (1.3-6.7); Neutrophils Percent Auto 57.6 % (45.5-73.1); Nucleated Red Blood Cells Perc 0.5 % (0.0-0.2); Platelet Count Result 109 k/mm3 (150-375); White Blood Count 4.3 K/mm3 (4.5-10.0)
[2022-03-27 05:52] LABS: Alanine Aminotransferase 62 U/L (6-50); Albumin Level 2.7 g/dL (3.5-5.1); Alkaline Phosphatase 229 U/L (38-126); Anion Gap 1 mmol/L (8-16); Aspartate Amino Transferase 94 U/L (17-59); Bilirubin,Total 1.2 mg/dL (0.2-1.3); Blood Urea Nitrogen 13 mg/dL (9-20); Carbon Dioxide 28 mmol/L (22-30); Chloride 103 mmol/L (98-107); Estimated CRCL calculation 99 ml/min; Estimated Glomerular Filt Rate > 60; Glucose 90 mg/dL (65-110); Potassium 2.8 mmol/L (3.4-5.0); Sodium 132 mmol/L (137-145)
[2022-03-27] MEDS: POTASSIUM CHLORIDE INJ 40 MEQ in SODIUM CHLORIDE 0.9% IV 500 ML 130 MEQ IVPB (06:29)
[2022-03-27] MEDS: TAMSULOSIN HCL 0.4 MG CAPSULE PO (06:29)
[2022-03-27 06:42] LABS: Glucose Point of Care 110 mg/dl (65-105)
[2022-03-27 06:50] LABS: Hepatitis B Surface Antigen Negative (Negative)
[2022-03-27 06:56] LABS: HAV RESULT Negative (Negative); Hepatitis B Core IgM Result Negative (Negative)
[2022-03-27 07:08] LABS: Hepatitis C Virus Antibody Negative (Negative)
[2022-03-27] MEDS: PANTOPRAZOLE 40 MG TABLET PO ×2 (08:19→20:40)
[2022-03-27] MEDS: APIXABAN 5 MG TABLET PO (08:19)
[2022-03-27] MEDS: FOLIC ACID 1 MG TABLET PO (08:19)
[2022-03-27] MEDS: THIAMINE 500 MG/NS 100 ML 500 MG/100 ML BAG 200 MG IVPB ×3 (09:27→17:44)
--- NOTE | 2022-03-27 10:42 | PM.IMPN ---
Progress Note: A&P Assessment and Plan (1) Altered mental status: Code(s): R41.82 - Altered mental status, unspecified Status: Acute Assessment and Plan: Suspect Wernicke-Korsakoff syndrome, high-dose thiamine given t.i.d. for the next few days, monitor response Consider Neurology consultation Brain MRI within normal limits Neurochecks Monitor CIWA (2) History of alcoholism: Code(s): F10.21 - Alcohol dependence, in remission Status: Acute Assessment and Plan: Follow CIWA score, continue scheduled Librium, Ativan for breakthrough withdrawal symptoms D5 half-normal +40 mEq of potassium IV fluids given (3) Anemia: Code(s): D64.9 - Anemia, unspecified Status: Acute Assessment and Plan: Acute drop in hemoglobin of unknown etiology, H&H q.4 hours, GI consult pending, hold Eliquis, fecal occult blood test pending, change PPI to b.i.d. (4) DVT (deep venous thrombosis): Code(s): I82.409 - Acute embolism and thrombosis of unspecified deep veins of unspecified lower extremity Status: Acute Assessment and Plan: Hold Eliquis due to acute drop in hemoglobin (5) Hypertension: Code(s): I10 - Essential (primary) hypertension Status: Acute Assessment and Plan: P.r.n. hydralazine (6) Hyperlipidemia: Code(s): E78.5 - Hyperlipidemia, unspecified Status: Acute (7) Hypokalemia: Code(s): E87.6 - Hypokalemia Status: Acute Assessment and Plan: Monitor and replace as needed Magnesium greater than 2 Plan DVT prophylaxis with Eliquis--on hold 03/27 d/t drop on hgb GI prophylaxis with PPI Code status full code Subjective Date/time seen: 03/27/22 10:42 Interval history: No overnight events noted. No chest pain or shortness of breath. No nausea, vomiting or diarrhea. No fevers or chills. Review of Systems Review of Systems: 12 point review of systems was assessed and was negative except as noted in the HPI Exam Narrative: General: No acute distress, slurred speech, somewhat tremulous HEENT: Atraumatic, normocephalic, mucous membranes moist CV: Regular rate and rhythm, S1, S2 Lungs: Clear to auscultation bilaterally, no rales or crackles noted, no wheezes, good air entry Abdomen: Soft, nontender, nondistended Extremities: Normal to inspection Skin: No rashes noted, no lesions or wounds seen Psych: Unable to assess, seems irritable Neuro: Cranial nerves 2-12 grossly intact, strength +5/5 upper and lower extremities bilaterally, slurred speech improved from yesterday, still present, no tremors Objective Data Vital Signs Vital Signs: Vital Signs - 24 hr 03/26/22 12:00 03/26/22 12:00 03/26/22 15:59 Temperature 97.2 F L Pulse Rate 103 H 99 Pulse Rate [Right Radial Palpation] 115 H Respiratory Rate 18 Blood Pressure 105/69 Pulse Oximetry 98 03/26/22 16:00 03/26/22 16:00 03/26/22 20:07 Temperature Pulse Rate 90 83 Pulse Rate [Right Radial Palpation] 94 Respiratory Rate 20 Blood Pressure 128/88 Pulse Oximetry 97 03/26/22 20:00 03/27/22 00:00 03/27/22 00:00 Temperature Pulse Rate 82 75 Pulse Rate [Right Radial Palpation] 94 Respiratory Rate Blood Pressure 128/88 Pulse Oximetry 03/27/22 04:00 03/27/22 04:00 03/27/22 05:01 Temperature 97 F L Pulse Rate 70 67 Pulse Rate [Right Radial Palpation] 94 Respiratory Rate 18 Blood Pressure 128/88 98/51 L Pulse Oximetry 96 Intake/Output Intake/Output: Intake & Output 03/24/22 03/25/22 03/26/22 03/27/22 23:59 23:59 23:59 23:59 Intake Total 1050 2640 0 Output Total 200 Balance 850 2640 0 Meds/Results Medications: Active Medications Generic Name Dose Route Start Last Admin Trade Name Freq PRN Reason Stop Dose Admin Apixaban 5 mg 03/26/22 17:00 03/27/22 08:19 Apixaban 5 Mg Tablet PO 5 mg BID CALDERON Administration Chlordiazepoxide HCl 25 mg
[2022-03-27 12:27] LABS: Glucose Point of Care 116 mg/dl (65-105)
[2022-03-27] MEDS: chlordiazePOXIDE (*CRX) 25 MG CAPSULE PO (13:17)
--- NOTE | 2022-03-27 15:52 | WPDGIPROGNO ---
Progress Note: A&P Assessment and Plan (1) Alcohol withdrawal delirium: Code(s): F10.931 - Alcohol use, unspecified with withdrawal delirium Status: Acute Assessment and Plan: on large dose of thiamine supportive care and ciga protocol (2) Acute encephalopathy: Code(s): G93.40 - Encephalopathy, unspecified Status: Acute Assessment and Plan: monitor, he is an alcoholic (3) Cirrhosis, alcoholic: Code(s): K70.30 - Alcoholic cirrhosis of liver without ascites Status: Acute (4) Malnutrition: Code(s): E46 - Unspecified protein-calorie malnutrition Status: Acute Assessment and Plan: risk of refeeding syndrome monitor electrolytes and replete as indicated (5) Elevated liver enzymes: Code(s): R74.8 - Abnormal levels of other serum enzymes Status: Acute Subjective Date/time seen: 03/27/22 15:52 Interval history: less agitated today, he is comfortable Review of Systems Review of Systems: All systems reviewed & are unremarkable except as noted in HPI and below Exam Const: Other: confused but less agitated HENMT: Face/Nose/Sinus: Normal nares present Eyes: Sclera: sclerae normal Neck: Neck: supple Resp: Effort & Inspection: normal respiratory effort Cardio: Rate: regular rate GI: GI Palp: Yes Soft to palpation, No Tenderness to palpation present (GI) and No Guarding due to palpation present (GI) Skin: General skin exam: normal color Neuro: Speech: normal speech (slurred speech) Other: awake and alert but confused Extrem: General: normal to inspection Psych: Affect: Anxious affect present Objective Data Vital Signs Vital Signs: Vital Signs - 24 hr 03/26/22 15:59 03/26/22 16:00 03/26/22 16:00 Temperature 97.2 F L Pulse Rate 99 90 Pulse Rate [Right Radial Palpation] 94 Respiratory Rate 18 Blood Pressure 105/69 Pulse Oximetry 98 03/26/22 20:07 03/26/22 20:00 03/27/22 00:00 Temperature Pulse Rate 83 82 Pulse Rate [Right Radial Palpation] 94 Respiratory Rate 20 Blood Pressure 128/88 128/88 Pulse Oximetry 97 03/27/22 00:00 03/27/22 04:00 03/27/22 04:00 Temperature Pulse Rate 75 70 Pulse Rate [Right Radial Palpation] 94 Respiratory Rate Blood Pressure 128/88 Pulse Oximetry 03/27/22 05:01 03/27/22 08:00 03/27/22 12:00 Temperature 97 F L Pulse Rate 67 78 83 Pulse Rate [Right Radial Palpation] Respiratory Rate 18 Blood Pressure 98/51 L Pulse Oximetry 96 Intake/Output Intake/Output: Intake & Output 03/24/22 03/25/22 03/26/22 03/27/22 23:59 23:59 23:59 23:59 Intake Total 1050 2640 580 Output Total 200 Balance 850 2640 580 Meds/Results Medications: Active Medications Generic Name Dose Route Start Last Admin Trade Name Freq PRN Reason Stop Dose Admin Apixaban 5 mg 03/26/22 17:00 03/27/22 08:19 Apixaban 5 Mg Tablet PO 5 mg BID CALDERON Administration Folic Acid 1 mg 03/26/22 09:00 03/27/22 08:19 Folic Acid 1 Mg Tablet PO 1 mg DAILY CALDERON Administration Hydralazine HCl 10 mg 03/25/22 23:27 Hydralazine Hcl 20 Mg/Ml Vial IV PUSH Q8H PRN Blood Pressure - High Potassium Chloride/Dextrose/Sod Cl 1,000 mls @ 100 mls/hr 03/26/22 12:30 03/27/22 05:01 Kcl 40 Meq/D5 1/2ns IV CONT 100 mls/hr .Q10H CALDERON Administration Thiamine HCl 500 mg in 100 mls @ 200 mls/hr 03/26/22 22:00 03/27/22 13:20 IVPB 03/29/22 21:59 200 mls/hr TID CALDERON Administration Lorazepam 1 mg 03/26/22 11:59 03/26/22 12:44 Lorazepam Inj (*Crx) 2 Mg/Ml Vial IV PUSH 1 mg Q6H PRN Administration Anxiety Ondansetron HCl 4 mg 03/25/22 23:01 Ondansetron Inj 4 Mg/2 Ml Vial IV PUSH Q6H PRN Nausea And Vomiting Pantoprazole Sodium 40 mg 03/27/22 21:00 Pantoprazole 40 Mg Tablet PO Q12HR CALDERON Vit/Calcium/Iron/Folic Ac 1 tab 03/30/22 09:00 Multivit/Min/Pren/Fol Ac/Ir
[2022-03-27 16:38] LABS: Hematocrit 27.8 % (42.0-52.0); Hemoglobin 8.9 g/dL (14.0-18.0)
[2022-03-27 18:13] LABS: Glucose Point of Care 122 mg/dl (65-105)
[2022-03-27 21:55] LABS: IFOB Positive Control Positive; Immunochemical Fecal Occult Bl Positive (N)
[2022-03-28] VITALS (7 sets, daily range): BP systolic 98–133; BP diastolic 60–81; PULSE 58–91; RESP 16–20; TEMP 36.1–36.9; O2SAT 99–100
[2022-03-28 00:40] LABS: Glucose Point of Care 113 mg/dl (65-105)
[2022-03-28 01:08] LABS: Hematocrit 27.7 % (42.0-52.0); Hemoglobin 8.9 g/dL (14.0-18.0)
[2022-03-28 05:47] LABS: Glucose Point of Care 116 mg/dl (65-105)
[2022-03-28] MEDS: THIAMINE 500 MG/NS 100 ML 500 MG/100 ML BAG 200 MG IVPB ×3 (09:21→16:48)
[2022-03-28] MEDS: TAMSULOSIN HCL 0.4 MG CAPSULE PO (09:22)
[2022-03-28] MEDS: FOLIC ACID 1 MG TABLET PO (09:22)
[2022-03-28] MEDS: PANTOPRAZOLE 40 MG TABLET PO ×2 (09:22→20:44)
[2022-03-28] MEDS: KCL 40 MEQ/D5 1/2NS 1,000 ML 100 ML IV CONT (09:25)
--- NOTE | 2022-03-28 09:47 | PM.IMPN ---
Progress Note: A&P Assessment and Plan (1) Altered mental status: Code(s): R41.82 - Altered mental status, unspecified Status: Acute Assessment and Plan: Suspect Wernicke-Korsakoff syndrome, high-dose thiamine given t.i.d. for the next few days, monitor response Will consult neurology is patient still has residual slurred speech despite CIWA being essentially 0 Brain MRI within normal limits Neurochecks Monitor CIWA (2) History of alcoholism: Code(s): F10.21 - Alcohol dependence, in remission Status: Acute Assessment and Plan: Follow CIWA score, continue scheduled Librium, Ativan for breakthrough withdrawal symptoms D5 half-normal +40 mEq of potassium IV fluids given (3) Anemia: Code(s): D64.9 - Anemia, unspecified Status: Acute Assessment and Plan: Acute drop in hemoglobin of unknown etiology, H&H q.4 hours, GI consult appreciated, hold Eliquis, fecal occult blood test positive, change PPI to b.i.d. Hemoglobin appears to stabilize, concern for GI bleed however due to positive fecal occult blood, may need EGD (4) DVT (deep venous thrombosis): Code(s): I82.409 - Acute embolism and thrombosis of unspecified deep veins of unspecified lower extremity Status: Acute Assessment and Plan: Hold Eliquis due to acute drop in hemoglobin (5) Hypertension: Code(s): I10 - Essential (primary) hypertension Status: Acute Assessment and Plan: P.r.n. hydralazine (6) Hyperlipidemia: Code(s): E78.5 - Hyperlipidemia, unspecified Status: Acute (7) Hypokalemia: Code(s): E87.6 - Hypokalemia Status: Acute Assessment and Plan: Monitor and replace as needed Magnesium greater than 2 Plan DVT prophylaxis with Eliquis--on hold 03/27 d/t drop on hgb GI prophylaxis with PPI Code status full code Subjective Date/time seen: 03/28/22 09:47 Interval history: No overnight events noted. No chest pain or shortness of breath. No nausea, vomiting or diarrhea. No fevers or chills. He states he is eager to go home. Review of Systems Review of Systems: 12 point review of systems was assessed and was negative except as noted in the HPI Exam Narrative: General: No acute distress, slurred speech, somewhat tremulous HEENT: Atraumatic, normocephalic, mucous membranes moist CV: Regular rate and rhythm, S1, S2 Lungs: Clear to auscultation bilaterally, no rales or crackles noted, no wheezes, good air entry Abdomen: Soft, nontender, nondistended Extremities: Normal to inspection Skin: No rashes noted, no lesions or wounds seen Psych: Unable to assess, seems irritable Neuro: Cranial nerves 2-12 grossly intact, strength +5/5 upper and lower extremities bilaterally, slurred speech about the same as yesterday Objective Data Vital Signs Vital Signs: Vital Signs - 24 hr 03/27/22 12:00 03/27/22 14:00 03/27/22 16:00 Temperature 97.5 F L Pulse Rate 83 87 84 Pulse Rate [Right Radial Palpation] Respiratory Rate 16 Blood Pressure 104/62 Pulse Oximetry 95 03/27/22 20:49 03/27/22 20:00 03/27/22 20:00 Temperature 98 F Pulse Rate 76 91 Pulse Rate [Right Radial Palpation] 91 Respiratory Rate 18 Blood Pressure 111/67 Pulse Oximetry 96 03/28/22 00:00 03/28/22 04:00 03/28/22 04:00 Temperature Pulse Rate 79 67 Pulse Rate [Right Radial Palpation] 91 Respiratory Rate Blood Pressure Pulse Oximetry 03/28/22 04:53 Temperature 97.4 F L Pulse Rate 71 Pulse Rate [Right Radial Palpation] Respiratory Rate 16 Blood Pressure 133/81 Pulse Oximetry 100 Intake/Output Intake/Output: Intake & Output 03/25/22 03/26/22 03/27/22 03/28/22 23:59 23:59 23:59 23:59 Intake Total 1050 2640 2020 1000 Output Total 200 600 Balance 850 2640 1420 1000 Meds/Results Medications: Active Medications Generic Name Dose Route Start Last Admin Trade Name Freq PRN Reason Stop Dose Adm
[2022-03-28 10:01] LABS: Basophils Percent Auto 0.5 % (0.2-1.2); Eosinophils Absolute Auto 0.1 K/mm3 (0-0.3); Eosinophils Percent Auto 1.5 % (0-4.4); Hemoglobin 9.7 g/dL (14.0-18.0); Immature Granulocyte Absolute 0.03 K/mm3 (0.00-0.031); Immature Granulocyte Percent A 0.7 % (0-0.5); Lymphocytes Absolute Auto 1.36 K/mm3 (0.9-3.2); Lymphocytes Percent Auto 33.7 % (18.3-44.2); Mean Corpuscular HGB Conc 31.3 g/dl (32-36); Mean Corpuscular Hemoglobin 30.6 pg (26-34); Mean Corpuscular Volume 97.8 fl (80-100); Mean Platelet Volume 10.1 fl (7.4-10.4); Monocytes Absolute Auto 0.3 K/mm3 (0.1-0.6); Monocytes Percent Auto 8.2 % (2.6-8.5); Neutrophils Absolute Auto 2.2 K/mm3 (1.3-6.7); Neutrophils Percent Auto 55.4 % (45.5-73.1); Nucleated Red Blood Cells Perc 0.5 % (0.0-0.2); Platelet Count Result 124 k/mm3 (150-375); Red Blood Count 3.17 M/mm3 (4.6-6.20); Red Cell Distribution Width 18.7 % (11.5-14.5)
[2022-03-28 10:12] LABS: Alanine Aminotransferase 89 U/L (6-50); Albumin Level 3.1 g/dL (3.5-5.1); Alkaline Phosphatase 273 U/L (38-126); Anion Gap 7 mmol/L (8-16); Aspartate Amino Transferase 141 U/L (17-59); Bilirubin,Total 1.1 mg/dL (0.2-1.3); Blood Urea Nitrogen 11 mg/dL (9-20); Calcium 8.2 mg/dL (8.4-10.2); Carbon Dioxide 19 mmol/L (22-30); Chloride 108 mmol/L (98-107); Estimated CRCL calculation 99 ml/min; Estimated Glomerular Filt Rate > 60; Glucose 100 mg/dL (65-110); Magnesium 1.6 mg/dL (1.6-2.3); Potassium 3.5 mmol/L (3.4-5.0); Sodium 134 mmol/L (137-145)
[2022-03-28 12:50] LABS: Glucose Point of Care 129 mg/dl (65-105)
--- NOTE | 2022-03-28 14:32 | WPDGIPROGNO ---
Progress Note: A&P Assessment and Plan (1) Alcohol withdrawal delirium: Code(s): F10.931 - Alcohol use, unspecified with withdrawal delirium Status: Acute Assessment and Plan: continue with thiamine, mvi, nutrition support [facility] protocol will follow [place], call if questions (2) Acute encephalopathy: Code(s): G93.40 - Encephalopathy, unspecified Status: Acute Assessment and Plan: monitor, he is an alcoholic (3) Cirrhosis, alcoholic: Code(s): K70.30 - Alcoholic cirrhosis of liver without ascites Status: Acute Assessment and Plan: he can follow-up in office, says that he is not seeing GI doctor he will need liver imaging every 6 months and close monitoring (4) Malnutrition: Code(s): E46 - Unspecified protein-calorie malnutrition Status: Acute Assessment and Plan: risk of refeeding syndrome monitor electrolytes and replete as indicated (5) Elevated liver enzymes: Code(s): R74.8 - Abnormal levels of other serum enzymes Status: Acute Assessment and Plan: from alcohol use and cirrhosis Subjective Date/time seen: 03/28/22 14:32 Interval history: he is more alert today, is at bedside- she says that he is a drinker. He already had scopes ~ 2 years ago. Review of Systems Review of Systems: All systems reviewed & are unremarkable except as noted in HPI and below Exam Const: Other: more alert but less agitated HENMT: Face/Nose/Sinus: Normal nares present Eyes: Sclera: sclerae normal Neck: Neck: supple Resp: Effort & Inspection: normal respiratory effort Cardio: Rate: regular rate GI: GI Palp: Yes Soft to palpation, No Tenderness to palpation present (GI) and No Guarding due to palpation present (GI) Skin: General skin exam: normal color Neuro: Speech: normal speech (slurred speech) Other: awake and alert less confused Extrem: General: normal to inspection Psych: Affect: Anxious affect present Objective Data Vital Signs Vital Signs: Vital Signs - 24 hr 03/27/22 16:00 03/27/22 20:49 03/27/22 20:00 Temperature 98 F Pulse Rate 84 76 91 Pulse Rate [Right Radial Palpation] Respiratory Rate 18 Blood Pressure 111/67 Pulse Oximetry 96 03/27/22 20:00 03/28/22 00:00 03/28/22 04:00 Temperature Pulse Rate 79 67 Pulse Rate [Right Radial Palpation] 91 Respiratory Rate Blood Pressure Pulse Oximetry 03/28/22 04:00 03/28/22 04:53 03/28/22 08:00 Temperature 97.4 F L Pulse Rate 71 73 Pulse Rate [Right Radial Palpation] 91 Respiratory Rate 16 Blood Pressure 133/81 Pulse Oximetry 100 Intake/Output Intake/Output: Intake & Output 03/25/22 03/26/22 03/27/22 03/28/22 23:59 23:59 23:59 23:59 Intake Total 1050 2640 2020 1440 Output Total 200 600 Balance 850 2640 1420 1440 Meds/Results Medications: Active Medications Generic Name Dose Route Start Last Admin Trade Name Freq PRN Reason Stop Dose Admin Apixaban 5 mg 03/26/22 17:00 03/27/22 08:19 Apixaban 5 Mg Tablet PO 5 mg BID CALDERON Administration Hydralazine HCl 10 mg 03/25/22 23:27 Hydralazine Hcl 20 Mg/Ml Vial IV PUSH Q8H PRN Blood Pressure - High Potassium Chloride/Dextrose/Sod Cl 1,000 mls @ 100 mls/hr 03/26/22 12:30 03/28/22 09:25 Kcl 40 Meq/D5 1/2ns IV CONT 100 mls/hr .Q10H CALDERON Administration Thiamine HCl 500 mg in 100 mls @ 200 mls/hr 03/26/22 22:00 03/28/22 13:42 IVPB 03/29/22 21:59 Infused TID CALDERON Infusion Lorazepam 1 mg 03/26/22 11:59 03/26/22 12:44 Lorazepam Inj (*Crx) 2 Mg/Ml Vial IV PUSH 1 mg Q6H PRN Administration Anxiety Ondansetron HCl 4 mg 03/25/22 23:01 Ondansetron Inj 4 Mg/2 Ml Vial IV PUSH Q6H PRN Nausea And Vomiting Pantoprazole Sodium 40 mg 03/27/22 21:00 03/28/22 09:22 Pantoprazole 40 Mg Tablet PO 40 mg Q12HR CALDERON Administration Vit/Calcium/Iron/Folic Ac
[2022-03-28 17:57] LABS: Hemoglobin 10.1 g/dL (14.0-18.0)
[2022-03-28 19:07] LABS: Glucose Point of Care 125 mg/dl (65-105)
[2022-03-28 21:00] LABS: Glucose Point of Care 117 mg/dl (65-105)
[2022-03-29 04:00] VITALS: PULSE 66
[2022-03-29 06:00] VITALS: BP 120/58; PULSE 76; RESP 16; TEMP 36.9; O2SAT 99
[2022-03-29 06:13] LABS: Basophils Percent Auto 0.4 % (0.2-1.2); Eosinophils Absolute Auto 0.1 K/mm3 (0-0.3); Eosinophils Percent Auto 1.3 % (0-4.4); Hematocrit 30.1 % (42.0-52.0); Hemoglobin 9.4 g/dL (14.0-18.0); Immature Granulocyte Absolute 0.03 K/mm3 (0.00-0.031); Immature Granulocyte Percent A 0.7 % (0-0.5); Lymphocytes Absolute Auto 1.36 K/mm3 (0.9-3.2); Mean Corpuscular HGB Conc 31.2 g/dl (32-36); Mean Corpuscular Hemoglobin 30.4 pg (26-34); Mean Corpuscular Volume 97.4 fl (80-100); Monocytes Absolute Auto 0.4 K/mm3 (0.1-0.6); Monocytes Percent Auto 9.7 % (2.6-8.5); Neutrophils Absolute Auto 2.6 K/mm3 (1.3-6.7); Neutrophils Percent Auto 57.9 % (45.5-73.1); Platelet Count Result 127 k/mm3 (150-375); Red Blood Count 3.09 M/mm3 (4.6-6.20); Red Cell Distribution Width 19.5 % (11.5-14.5); White Blood Count 4.5 K/mm3 (4.5-10.0)
[2022-03-29 06:23] LABS: Alanine Aminotransferase 89 U/L (6-50); Albumin Level 2.8 g/dL (3.5-5.1); Alkaline Phosphatase 243 U/L (38-126); Anion Gap 4 mmol/L (8-16); Aspartate Amino Transferase 123 U/L (17-59); Blood Urea Nitrogen 11 mg/dL (9-20); Calcium 7.8 mg/dL (8.4-10.2); Carbon Dioxide 23 mmol/L (22-30); Chloride 105 mmol/L (98-107); Estimated CRCL calculation 99 ml/min; Estimated Glomerular Filt Rate > 60; Glucose 84 mg/dL (65-110); Magnesium 1.3 mg/dL (1.6-2.3); Potassium 3.9 mmol/L (3.4-5.0); Sodium 132 mmol/L (137-145)
[2022-03-29 06:34] LABS: Glucose Point of Care 109 mg/dl (65-105)
[2022-03-29 08:31] LABS: Glucose Point of Care 94 mg/dl (65-105)
[2022-03-29] MEDS: MAGNESIUM SULF 2 GM/WATER 50ML 2 GM/50 ML BAG IVPB (09:32)
[2022-03-29] MEDS: PANTOPRAZOLE 40 MG TABLET PO ×2 (09:32→20:43)
[2022-03-29] MEDS: TAMSULOSIN HCL 0.4 MG CAPSULE PO (09:32)
[2022-03-29] MEDS: KCL 40 MEQ/D5 1/2NS 1,000 ML 100 ML IV CONT (10:25)
[2022-03-29] MEDS: THIAMINE 500 MG/NS 100 ML 500 MG/100 ML BAG 200 MG IVPB ×3 (10:26→17:36)
--- NOTE | 2022-03-29 11:39 | WPDNEURCNPN ---
Assessment and Plan Assessment and plan (1) Acute encephalopathy: Code(s): G93.40 - Encephalopathy, unspecified Status: Acute (2) Dysarthria: Code(s): R47.1 - Dysarthria and anarthria Status: Acute (3) Cirrhosis, alcoholic: Code(s): K70.30 - Alcoholic cirrhosis of liver without ascites Status: Acute (4) Alcohol withdrawal delirium: Code(s): F10.931 - Alcohol use, unspecified with withdrawal delirium Status: Acute Plan Estiven Singletary is a 57 year old male with a history of chronic alcohol use, cirrhosis, DVT, HLD, HTN who presented initially due to altered mental, thought to be secondary to alcohol withdrawal encephalopathy vs acute metabolic encephalopathy due to cirrhosis. Patient continues to have slurring of speech despite negative CIWA scoring. He does not have any other findings of Wernicke's encephalopathy. MRI brain was unrevealing, although somewhat limited by motion artifact. It's possible that there could be a subtle brainstem lesion causing the dysarthria, but he does not have any other symptoms that would be suggestive of this. Also not clear what his baseline speech sounds like as patient mentioned that his speech is currently normal . - Would be worth repeating an MRI brain in several weeks if dysarthria persists. - Recommend outpatient follow-up in Neurology clinic - Speech evaluation pending Consult date: 03/29/22 Reason for consult: Encephalopaty, dysarthria HPI: Estiven Singletary is a 57 year old male with a history of chronic alcohol use, cirrhosis, DVT, HLD, HTN who presented initially due to altered mental status. Patient reportedly stopped taking his medications about three months ago. The confusion started about three days prior to admission. When he was evaluated in [facility] his labs were significant for hyponatremia (133), elevated AST/ALT (150/94), UDS positive for cannabinoids. UA was negative. WBC was within normal range. CT head was unrevealing. He was started on high dose thiamine and subsequently admitted. Mental status seems to have improved during admission, although he continues to have slurred speech which is new for him. MRI brain w/o contrast already obtained which was unrevealing although was limited due to motion artifact. Patient this morning denies noting any problems with his speech. He reports that he has been able to swallow water without any difficulty. However, speech evaluation has not been done yet. Review of Systems Constitutional: Constitutional: Reports no additional constitutional complaints Eyes: Eyes: Reports no additional eye complaints ENT: Reports system reviewed and no additional complaints, except as documented Cardiovascular: Cardiovascular: Reports no additional cardiovascular complaints Respiratory: Respiratory: Reports no additional respiratory complaints Gastrointestinal: Gastrointestinal: Reports abdominal pain Genitourinary: Genitourinary: Reports no additional male genitourinary complaints Musculoskeletal: Musculoskeletal: Reports no additional musculoskeletal complaints Integumentary/Breasts: Skin/Breast: Reports system reviewed and no additional complaints, except as docu Neurologic: Reports as per HPI Psychiatric: Psychiatric: Reports behavioral changes and Reports confusion PMFSH Past Medical History Medical History Acute encephalopathy Alcohol withdrawal delirium Cirrhosis, alcoholic DVT (deep venous thrombosis) Elevated liver enzymes History of alcoholism Hyperlipidemia Hypertension Malnutrition Surgical History Surgical History H/O repair of rotator cuff Family History Family History Mother Dementia Father Stomach cancer Sibling Diabetes mellitus Social History Social History (Reviewed 03/29/22 @ 13:05 by Leonela Drummond
[2022-03-29 11:54] LABS: Glucose Point of Care 133 mg/dl (65-105)
--- NOTE | 2022-03-29 12:39 | PM.IMPN ---
Progress Note: A&P Assessment and Plan (1) Altered mental status: Code(s): R41.82 - Altered mental status, unspecified Status: Acute Assessment and Plan: Brain MRI within normal limits. Wernicke-Korsakoff syndrome suspected and treated with high-dose thiamine that will end today. Neurology input appreciated and brainstem CVA being considered. Speech felt the pateit was coughing with thin liquids and MBS recommended and has been ordered. Discussed with speech therapy. CIWA score is low. Continue neurologic serial evaluations. Continue CIWA protocol (2) History of alcoholism: Code(s): F10.21 - Alcohol dependence, in remission Status: Acute Assessment and Plan: CIWA mostly 1-3 but was up to 7 last night. COntinue thiamine and folate/ MVI. Follow CIWA score. Ativan available for breakthrough withdrawal symptoms but not given since 03/26. Follow closely. (3) Anemia: Code(s): D64.9 - Anemia, unspecified Status: Acute Assessment and Plan: Hgb 12.2 on admission but dropped to 8 range. Hgb better and now in the 9-10 range. GI consult appreciated. Fecal occult blood test positive. COntinue to hold Eliquis. Continue PPI b.i.d. (4) DVT (deep venous thrombosis): Code(s): I82.409 - Acute embolism and thrombosis of unspecified deep veins of unspecified lower extremity Status: Acute Assessment and Plan: Hx of DVT. Hold Eliquis due to acute drop in hemoglobin (5) Hypokalemia: Code(s): E87.6 - Hypokalemia Status: Acute Assessment and Plan: Mag low again at 1.3 so will repalce. Potassium okay. Stop IV fluids if able to eat okay (6) Dysarthria: Code(s): R47.1 - Dysarthria and anarthria Status: Acute Assessment and Plan: As above (7) Elevated liver enzymes: Code(s): R74.8 - Abnormal levels of other serum enzymes Status: Acute Assessment and Plan: Related to cirrhosis and alcoholism. Check hepatitis panel. (8) Cirrhosis, alcoholic: Code(s): K70.30 - Alcoholic cirrhosis of liver without ascites Status: Acute Assessment and Plan: CT scan shows dilated gallbladder. He also has increased attenuation of the liver felt related to cirrhosis and/or diffuse hepatic steatosis. PT and PTT are normal. Albumin was normal on admission but has dropped to 2.8. He does have 1+ proteinuria noted. Check right upper quadrant ultrasound. Plan DVT prophylaxis with Eliquis--on hold 03/27 d/t drop on hgb; continue SCDs Code status full code Subjective Date/time seen: 03/29/22 12:39 Interval history: 57yo male with hx of DVT and alcoholism here for altered mental status Assuming care. Chart reviewed. Patient slept poorly last night. Still feels shaky but this is improved. Denies any chest pain or shortness of breath. He feels nauseous at times but no vomiting. He is able tolerate oral intake and nursing states patient has been eating well. He has a cough that is relatively nonproductive. He is been having diarrhea. He has been walking in the room with therapy Exam Narrative: - BASHIR lying semi-recumbent in bed Chest - CTA bilaterally, nml RR CV - RRR S1/S2. Tele showing occasion sinus tachycardia when he is out of bed Abd - Soft. Mild diffuse tenderness. No guarding. Ext - No pedal edema Neuro - Mildly dysarthric speech. Diffusely weak with slight worsening in the left upper and lower extremity. Psych - normal mood. Cooperative. Skin - Warm and dry. No diaphoresis Objective Data Vital Signs Vital Signs: Vital Signs - 24 hr 03/28/22 14:00 03/28/22 20:00 03/28/22 20:00 Temperature 97.0 F L Pulse Rate 84 58 L Pulse Rate [Right Radial Palpation] 91 Respiratory Rate 20 Blood Pressure 98/67 L Pulse Oximetry 100 Oxygen Delivery 03/28/22 20:00 03/28/22 22:00 03/29/22 04:00 Temperature 98.4 F Pulse Rate 58 L 74
[2022-03-29 14:59] VITALS: BP 89/59; PULSE 105; RESP 20; TEMP 37; O2SAT 92
--- NOTE | 2022-03-29 15:10 | PCSTNOTE ---
ST attempted to complete Modified Barium Swallow Study at 14:45. However, he was unable to be transported to radiology in the time frame needed for evaluation.
--- NOTE | 2022-03-29 16:28 | PCSTNOTE ---
Communication Evaluation completed; observed to cough while drinking water upright in bed; Modified Barium Swallow study recommended; Dr. Mcguire in agreement.
[2022-03-29 17:07] LABS: Glucose Point of Care 139 mg/dl (65-105)
--- NOTE | 2022-03-29 18:47 | PC.NURSE ---
Pt has taken leads and electrodes off multiple times throughout day. They have been re-applied, but continues to remove each time.
[2022-03-29 20:00] VITALS: BP 113/89; PULSE 105; PULSE 79; PULSE 83; RESP 20; O2SAT 92
[2022-03-29] MEDS: traZODone HCL 50 MG TABLET PO (20:43)
[2022-03-29 22:00] VITALS: BP 119/78; PULSE 81; RESP 20; TEMP 36.7; O2SAT 100
[2022-03-29] MEDS: ONDANSETRON INJ 4 MG/2 ML VIAL IV PUSH (22:25)
[2022-03-30] VITALS (9 sets, daily range): BP systolic 118–119; BP diastolic 70–74; PULSE 64–83; RESP 16–20; TEMP 36.3–36.7; O2SAT 100
[2022-03-30 00:02] LABS: Glucose Point of Care 111 mg/dl (65-105)
[2022-03-30] MEDS: KCL 40 MEQ/D5 1/2NS 1,000 ML 100 ML IV CONT (02:43)
[2022-03-30 05:54] LABS: Basophils Percent Auto 0.4 % (0.2-1.2); Eosinophils Absolute Auto 0.1 K/mm3 (0-0.3); Eosinophils Percent Auto 1.6 % (0-4.4); Hematocrit 28.6 % (42.0-52.0); Immature Granulocyte Absolute 0.03 K/mm3 (0.00-0.031); Immature Granulocyte Percent A 0.6 % (0-0.5); Lymphocytes Absolute Auto 1.11 K/mm3 (0.9-3.2); Lymphocytes Percent Auto 22.2 % (18.3-44.2); Mean Corpuscular HGB Conc 31.5 g/dl (32-36); Mean Corpuscular Hemoglobin 30.6 pg (26-34); Mean Corpuscular Volume 97.3 fl (80-100); Monocytes Absolute Auto 0.5 K/mm3 (0.1-0.6); Monocytes Percent Auto 9.4 % (2.6-8.5); Neutrophils Absolute Auto 3.3 K/mm3 (1.3-6.7); Neutrophils Percent Auto 65.8 % (45.5-73.1); Platelet Count Result 151 k/mm3 (150-375); Red Blood Count 2.94 M/mm3 (4.6-6.20); Red Cell Distribution Width 20.1 % (11.5-14.5)
[2022-03-30 06:04] LABS: Alanine Aminotransferase 89 U/L (6-50); Albumin Level 2.7 g/dL (3.5-5.1); Alkaline Phosphatase 254 U/L (38-126); Anion Gap 6 mmol/L (8-16); Aspartate Amino Transferase 112 U/L (17-59); Bilirubin,Total 0.9 mg/dL (0.2-1.3); Blood Urea Nitrogen 8 mg/dL (9-20); Calcium 7.9 mg/dL (8.4-10.2); Carbon Dioxide 20 mmol/L (22-30); Chloride 109 mmol/L (98-107); Estimated CRCL calculation 86 ml/min; Estimated Glomerular Filt Rate > 60; Glucose 88 mg/dL (65-110); Magnesium 1.6 mg/dL (1.6-2.3); Phosphorus 2.4 mg/dL (2.5-4.5); Potassium 4.5 mmol/L (3.4-5.0); Sodium 135 mmol/L (137-145)
[2022-03-30 06:51] LABS: Glucose Point of Care 88 mg/dl (65-105)
--- NOTE | 2022-03-30 09:16 | PCOTNOTE ---
Attempted to see patient this am, however patient unavailable with nursing and going for testing at this time.
[2022-03-30] MEDS: TAMSULOSIN HCL 0.4 MG CAPSULE PO (10:02)
[2022-03-30] MEDS: MULTIVIT/MIN/PREN/FOL AC/IRON TABLET 1 TAB PO (10:02)
[2022-03-30] MEDS: PANTOPRAZOLE 40 MG TABLET PO ×2 (10:02→20:11)
[2022-03-30 12:44] LABS: Glucose Point of Care 92 mg/dl (65-105)
--- NOTE | 2022-03-30 14:15 | PCSTNOTE ---
Please refer to the Modified Barium Swallow Evaluation in the EMR. Left VM on [facility] for nurse Mcneal. Recommend level 6, level 0 diet.
--- NOTE | 2022-03-30 17:33 | PM.IMPN ---
Progress Note: A&P Assessment and Plan (1) Altered mental status: Code(s): R41.82 - Altered mental status, unspecified Status: Acute Assessment and Plan: Brain MRI within normal limits. 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 Neurology input appreciated. Consider brainstem CVA causing these symptoms. Speech therapist recommended MBS which was essentially normal; soft and bite sized recommended which was started. CIWA score is low. Continue to monitor. Continue PT/OT/ST (2) Dysarthria: Code(s): R47.1 - Dysarthria and anarthria Status: Acute Assessment and Plan: As above. (3) History of alcoholism: Code(s): F10.21 - Alcohol dependence, in remission Status: Acute Assessment and Plan: CIWA mostly 1-5 but was up to 7 this morning. Continue thiamine and folate/ MVI. Follow CIWA score. Ativan available for breakthrough withdrawal symptoms but not given since 03/26. Follow closely. (4) Anemia: Code(s): D64.9 - Anemia, unspecified Status: Acute Assessment and Plan: Hgb 12.2 on admission but dropped to 8 range. Hgb better and now in the 9-10 range. GI consult appreciated. Fecal occult blood test positive. COntinue to hold Eliquis. Continue PPI b.i.d. (5) DVT (deep venous thrombosis): Code(s): I82.409 - Acute embolism and thrombosis of unspecified deep veins of unspecified lower extremity Status: Acute Assessment and Plan: Hx of DVT. Hold Eliquis due to acute drop in hemoglobin (6) Hypokalemia: Code(s): E87.6 - Hypokalemia Status: Acute Assessment and Plan: Mag better at 1.6. Potassium okay. Stop IV fluids (7) Elevated liver enzymes: Code(s): R74.8 - Abnormal levels of other serum enzymes Status: Acute Assessment and Plan: Related to cirrhosis and alcoholism. Hepatitis panel was negative. AST trending down. (8) Cirrhosis, alcoholic: Code(s): K70.30 - Alcoholic cirrhosis of liver without ascites Status: Acute Assessment and Plan: CT scan shows dilated gallbladder. He also has increased attenuation of the liver felt related to cirrhosis and/or diffuse hepatic steatosis. PT and PTT are normal. Albumin was normal on admission but has dropped to 2.8. He does have 1+ proteinuria noted. Right upper quadrant ultrasound showing wither cholesterolosis or focal adenomyomatosis. Liver appears normal. Follow. Plan DVT prophylaxis with Eliquis--on hold 03/27 d/t drop on hgb; continue SCDs Code status full code Subjective Date/time seen: 03/30/22 17:33 Interval history: 57yo male with hx of DVT and alcoholism here for altered mental status Patient slept well. He complains urinary frequency. Lives at home with his . He is having normal bowel movements. He states he is up walking the halls with a walker. He was out of bed to the chair today. Per staff however, patient is wheelchair bound but can stand and pivot. Exam Narrative: Gen - NARD Chest - CTA bilaterally, nml RR CV - RRR S1/S2 Abd - Soft. Diffusely tender but no guarding. Ext - No pedal edema Neuro - dysarthric speech. Psych - normal mood. Cooperative. Skin - Warm and dry. No diaphoresis Objective Data Vital Signs Vital Signs: Vital Signs - 24 hr 03/29/22 20:00 03/29/22 20:00 03/29/22 20:00 Temperature Pulse Rate 105 H 83 Pulse Rate [Right Radial Palpation] 79 Respiratory Rate 20 Blood Pressure 113/89 Pulse Oximetry 92 Oxygen Delivery Room Air 03/29/22 22:00 03/30/22 00:00 03/30/22 00:00 Temperature 98.1 F Pulse Rate 81 77 Pulse Rate [Right Radial Palpation] 73 Respiratory Rate 20 Blood Pressure 119/78 Pulse Oximetry 100 Oxygen Delivery 03/30/22 04:00 03/30/22 09:45 03/30/22 09:45 Temperature Pulse Rate 78 83 Pulse Rate [Right Radial Palpation] Respiratory Rate
[2022-03-30] MEDS: traZODone HCL 50 MG TABLET PO (20:11)
[2022-03-31 05:53] LABS: Basophils Percent Auto 0.8 % (0.2-1.2); Eosinophils Absolute Auto 0.1 K/mm3 (0-0.3); Eosinophils Percent Auto 1.6 % (0-4.4); Hematocrit 27.7 % (42.0-52.0); Hemoglobin 8.7 g/dL (14.0-18.0); Immature Granulocyte Absolute 0.02 K/mm3 (0.00-0.031); Immature Granulocyte Percent A 0.4 % (0-0.5); Lymphocytes Absolute Auto 1.28 K/mm3 (0.9-3.2); Lymphocytes Percent Auto 26.4 % (18.3-44.2); Mean Corpuscular HGB Conc 31.4 g/dl (32-36); Mean Corpuscular Hemoglobin 30.2 pg (26-34); Mean Corpuscular Volume 96.2 fl (80-100); Mean Platelet Volume 10.3 fl (7.4-10.4); Monocytes Absolute Auto 0.4 K/mm3 (0.1-0.6); Monocytes Percent Auto 7.4 % (2.6-8.5); Neutrophils Absolute Auto 3.1 K/mm3 (1.3-6.7); Neutrophils Percent Auto 63.4 % (45.5-73.1); Platelet Count Result 180 k/mm3 (150-375); Red Blood Count 2.88 M/mm3 (4.6-6.20); Red Cell Distribution Width 20.4 % (11.5-14.5); White Blood Count 4.9 K/mm3 (4.5-10.0)
[2022-03-31 06:00] VITALS: BP 116/70; PULSE 64; RESP 16; TEMP 36.7; O2SAT 100
[2022-03-31 06:04] LABS: Alanine Aminotransferase 82 U/L (6-50); Albumin Level 2.5 g/dL (3.5-5.1); Alkaline Phosphatase 247 U/L (38-126); Anion Gap 3 mmol/L (8-16); Aspartate Amino Transferase 97 U/L (17-59); Blood Urea Nitrogen 7 mg/dL (9-20); Calcium 8.2 mg/dL (8.4-10.2); Carbon Dioxide 23 mmol/L (22-30); Chloride 106 mmol/L (98-107); Estimated CRCL calculation 86 ml/min; Estimated Glomerular Filt Rate > 60; Glucose 81 mg/dL (65-110); Lipase 502 U/L (23-300); Sodium 132 mmol/L (137-145)
[2022-03-31] MEDS: MULTIVIT/MIN/PREN/FOL AC/IRON TABLET 1 TAB PO (09:20)
[2022-03-31] MEDS: PANTOPRAZOLE 40 MG TABLET PO (09:20)
[2022-03-31] MEDS: TAMSULOSIN HCL 0.4 MG CAPSULE PO (09:20)
--- NOTE | 2022-03-31 11:33 | PCOTNOTE ---
Attempted to see patient this am, however patient sleeping at this time and unable to arouse.
[2022-03-31 13:43] VITALS: BP 127/92; PULSE 117; RESP 20; TEMP 36.8; O2SAT 99
--- NOTE | 2022-03-31 14:21 | PM.DS ---
DS: Admitting Diagnosis Discharge Date 03/31/22 Admitting Diagnosis Altered mental status DS: Discharge Diagnosis Discharge Diagnosis (1) Altered mental status: Code(s): R41.82 - Altered mental status, unspecified Status: Acute (2) Dysarthria: Code(s): R47.1 - Dysarthria and anarthria Status: Acute (3) History of alcoholism: Code(s): F10.21 - Alcohol dependence, in remission Status: Acute (4) Anemia: Code(s): D64.9 - Anemia, unspecified Status: Acute (5) DVT (deep venous thrombosis): Code(s): I82.409 - Acute embolism and thrombosis of unspecified deep veins of unspecified lower extremity Status: Acute (6) Hypokalemia: Code(s): E87.6 - Hypokalemia Status: Acute (7) Elevated liver enzymes: Code(s): R74.8 - Abnormal levels of other serum enzymes Status: Acute (8) Cirrhosis, alcoholic: Code(s): K70.30 - Alcoholic cirrhosis of liver without ascites Status: Acute DS: Summary Hospital Course Reason for hospitalization: 57yo male with hx of DVT and alcoholism here for altered mental status. Please see H&P for details. Hospital Course: Patient presents with altered mental status. Brain MRI was within normal limits. 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 Neurology input was appreciated. We consider brainstem CVA causing these symptoms. Speech therapist recommended MBS which was essentially normal; soft and bite sized recommended which was started. CIWA score remained low.? His mental status improved. He worked with PT/OT/ST. Hgb 12.2 on admission but dropped to 8 range. Hgb did improve. GI consulted. Fecal occult blood test positive. His DVT was in September. Plan to hold [email or web address] and have him follow up with GI in 1-2 weeks. Discussed with GI. He has elevated liver enzymes felt related to cirrhosis and alcoholism. Hepatitis panel was negative. AST trended down. CT scan shows dilated gallbladder.? He also has increased attenuation of the liver felt related to cirrhosis and/or diffuse hepatic steatosis. PT and PTT were normal.? Albumin was normal on admission but has dropped to 2.8.? He does have 1+ proteinuria noted.? Right upper quadrant ultrasound showing either cholesterolosis or focal adenomyomatosis. Liver appears normal. Plan for him to follow up with GI at discharge. Patient overall did well and retunred to baseline. He was able to be discharged back home on 03/31/22. Status at Discharge Cognitive/behavioral status at discharge: Stable Time Spent with Patient Time attestation: Total time spent providing and/or coordinating discharge services: 37 minutes Time spent: Greater than 30 minutes Exam Narrative: Gen - NARD Chest - CTA bilaterally, nml RR CV - RRR S1/S2 Abd - Soft. Minimal epigastric pain Ext - No pedal edema Neuro - dysarthric speech. Psych - normal mood. Cooperative. Skin - Warm and dry. DS: Data Data Completed and Pending Labs on day of discharge: Labs from last 24 hours 03/31/22 03/31/22 05:31 05:31 WBC 4.9 RBC 2.88 L Hgb 8.7 L Hct 27.7 L MCV 96.2 MCH 30.2 MCHC 31.4 L RDW 20.4 H Plt Count 180 MPV 10.3 Immature Gran % (Auto) 0.4 Neut % (Auto) 63.4 Lymph % (Auto) 26.4 Bell % (Auto) 7.4 Eos % (Auto) 1.6 Baso % (Auto) 0.8 Lymph # (Auto) 1.28 Bell # (Auto) 0.4 Eos # (Auto) 0.1 Baso # (Auto) 0.0 Abs Immat Gran (auto) 0.02 Absolute Neuts (auto) 3.1 Absolute Nucleated RBC 0.0 Nucleated RBC % 0.0 Sodium 132 L Potassium 4.0 Chloride 106 Carbon Dioxide 23 Anion Gap 3 L BUN 7 L Creatinine 0.70 Estim Creat Clear Calc 86 Estimated GFR > 60 Glucose 81 Calcium 8.2 L Total Bilirubin 1.0 AST 97 H ALT 82 H Alkaline Phosphatase 247 H Total Protein 6.0 L Albumin 2.5 L Lipase 502 H Discharge Plan Discharge Attending physician on discharge: Nicole
--- NOTE | 2022-03-31 16:20 | PC.NURSE ---
RN went over discharge paperwork with pt, pt's , and daughter. RN explained the importance of establishing a PCP for the pt as soon as possible. RN reinterated the importance of quitting drinking alcohol.
== END 2022-03-31 16:15 | disposition home or self-care (01) | DRG 775 ==
LOC: ANHED 22:11 → ANH3MED 03-26 05:47
PROVIDERS: Emergency Medicine; Internal Medicine Gastroenterology; Nurse Practitioner; Student in an Organized Health Care Education/Training Program; Admitting Provider Internal Medicine; Emergency Provider Preventive Medicine Aerospace Medicine; Visit Provider Internal Medicine
DX: F10.231 Alcohol dependence with withdrawal delirium (principal); E46 Unspecified protein-calorie malnutrition; K70.30 Alcoholic cirrhosis of liver without ascites; G31.2 Degeneration of nervous system due to alcohol; E87.6 Hypokalemia; F10.20 Alcohol dependence, uncomplicated; D64.9 Anemia, unspecified; I10 Essential (primary) hypertension; R74.8 Abnormal levels of other serum enzymes; R47.1 Dysarthria and anarthria; F17.210 Nicotine dependence, cigarettes, uncomplicated; Z20.822 Contact with and (suspected) exposure to COVID-19; Z99.3 Dependence on wheelchair; Z86.718 Personal history of other venous thrombosis and embolism
CPT/HCPCS: 36415; 36600; 51701; 70450; 70551; 71275; 74177; 76705; 80053; 80074; 80307; 81001; 82140; 82274; 82728; 82805; 82948; 83605; 83615; 83690; 83735; 84100; 84443; 85014; 85018; 85025; 85610; 85730; 87040; 87636; 92507; 92523; 92611; 93005; 96361; 96365; 96366; 96367; 96375; 97161; 97166; 99285; A9270; G0378; G0379; J0696; J2060; J2250; J2405; J3411; J3475; J3480; J7030; J7040; J7121; Q9967

== ENCOUNTER 2022-04-08 09:16 | Emergency (ER) | payer SELFPAY ==
--- NOTE | ~2022-04-08 | CT_ITS ---
EXAMINATION: CT cervical spine wo con DATE: 04/08/2022 09:49 INDICATION: Neck pain after fall TECHNIQUE: Computed tomography (CT) of the cervical spine was performed without intravenous contrast. The dose-length product was 269 mGy-cm. Automated exposure control and iterative reconstruction tech Giphyque were employed. COMPARISON: CT dated 11/12/2021 FINDINGS: There is degenerative disc disease and disc narrowing at C5-6, C6-7 and C7-T1. . Odontoid p rocess is normal. Straightening of normal cervical lordosis. Odontoid process is normal. There is mil d multilevel uncinate hypertrophy. There is endplate hypertrophy at C6-7 causing central canal and le ft neural foraminal stenosis.. No acute fracture or traumatic malalignment. No significant paraspinal soft tissue abnormality. IMPRESSION: 1. No acute abnormality of the cervical spine. Reviewed, dictated and finalized at location A. ERATIVE EXTENSION AGENT
--- NOTE | ~2022-04-08 | CT_ITS ---
EXAMINATION: CT brain wo con DATE: 04/08/2022 09:49 INDICATION: Altered mental status. Right-sided neck pain. TECHNIQUE: Computed tomography (CT) of the head was performed without intravenous contrast. The dose- length product was 605.33 mGy-cm. Automated exposure control and iterative reconstruction technique w ere employed. COMPARISON: CT dated 03/25/2022 FINDINGS: Mild generalized atrophy. No acute intracranial hemorrhage, infarction, mass or mass effect . No ventriculomegaly or midline shift. Basilar cisterns are patent. Paranasal sinuses and mastoids a re pneumatized. No depressed skull fractures. IMPRESSION: 1. No acute intracranial abnormality. Reviewed, dictated and finalized at location A. UP EDITOR
--- NOTE | ~2022-04-08 | XR_ITS ---
EXAMINATION: XR chest 1V 04/08/2022 09:57 INDICATION: Status post fall. Generalized weakness. PROCEDURE: AP upright view of the chest COMPARISON: Comparison to multiple prior studies sequentially, with oldest reviewed study dated 06/20. FINDINGS: The lungs are clear. The cardiomediastinal silhouette is within normal limits. There are no pleural effusions. There is no pneumothorax suspected. 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 IMPRESSION: 1: NO ACUTE CARDIOPULMONARY DISEASE. Reviewed, dictated and finalized at location A. ETRICS ANALYST
[2022-04-08 09:11] VITALS: BP 137/101; PULSE 91; RESP 15; TEMP 36.4; O2SAT 100
--- NOTE | 2022-04-08 09:22 | ECG_ITS ---
Measurements Intervals [place] Rate: 80 P: 81 SD: 188 QRS: 57 QRSD: 83 T: 67 QT: 379 QTc: 439 Interpretive Statements SINUS RHYTHM BORDERLINE ST ABNORMALITY- ANTEROLAT/INF LEADS BASELINE ARTIFACT- I, II, III, AVR, AVL, AVF, V1-V5 BORDERLINE ECG COMPARED TO ECG 03/25/2022 18:41:25 ST-T WAVE ABNORMAITY IMPROVED Electronically Signed On 04-08-2022 13:16:52 TEXTILE MACHINERY SALES REPRESENTATIVE by Donato Vincent D.O.
[2022-04-08 09:35] LABS: Basophils Absolute Auto 0.1 K/mm3 (0.0-0.1); Basophils Percent Auto 0.8 % (0.2-1.2); Eosinophils Absolute Auto 0.1 K/mm3 (0-0.3); Eosinophils Percent Auto 1.9 % (0-4.4); Hematocrit 33.8 % (42.0-52.0); Hemoglobin 10.6 g/dL (14.0-18.0); Immature Granulocyte Absolute 0.01 K/mm3 (0.00-0.031); Immature Granulocyte Percent A 0.2 % (0-0.5); Lymphocytes Absolute Auto 1.36 K/mm3 (0.9-3.2); Lymphocytes Percent Auto 21.4 % (18.3-44.2); Mean Corpuscular HGB Conc 31.4 g/dl (32-36); Mean Corpuscular Hemoglobin 30.9 pg (26-34); Mean Corpuscular Volume 98.5 fl (80-100); Mean Platelet Volume 9.7 fl (7.4-10.4); Monocytes Absolute Auto 0.4 K/mm3 (0.1-0.6); Monocytes Percent Auto 5.8 % (2.6-8.5); Neutrophils Absolute Auto 4.4 K/mm3 (1.3-6.7); Neutrophils Percent Auto 69.9 % (45.5-73.1); Platelet Count Result 258 k/mm3 (150-375); Red Blood Count 3.43 M/mm3 (4.6-6.20); Red Cell Distribution Width 19.7 % (11.5-14.5); White Blood Count 6.4 K/mm3 (4.5-10.0)
[2022-04-08 09:47] LABS: Ethanol < 10 mg/dL (<10)
[2022-04-08 09:48] LABS: Alanine Aminotransferase 53 U/L (6-50); Albumin Level 3.7 g/dL (3.5-5.1); Alkaline Phosphatase 257 U/L (38-126); Anion Gap 5 mmol/L (8-16); Aspartate Amino Transferase 68 U/L (17-59); Bilirubin,Total 1.1 mg/dL (0.2-1.3); Blood Urea Nitrogen 17 mg/dL (9-20); Calcium 8.8 mg/dL (8.4-10.2); Carbon Dioxide 24 mmol/L (22-30); Chloride 109 mmol/L (98-107); Creatine Kinase 25 U/L (55-170); Estimated CRCL calculation 134 ml/min; Estimated Glomerular Filt Rate > 60; Glucose 107 mg/dL (65-110); Magnesium 1.8 mg/dL (1.6-2.3); Potassium 3.4 mmol/L (3.4-5.0); Sodium 138 mmol/L (137-145)
[2022-04-08 09:57] LABS: Ammonia < 9 umol/L (9-30)
[2022-04-08 10:11] LABS: INR 1.2; Partial Thromboplastin Time 25.8 SECONDS (22.3-36.8); Prothrombin Time 14.4 Seconds (11.1-14.7)
[2022-04-08 10:27] VITALS: BP 127/95; PULSE 90; RESP 17; O2SAT 99
[2022-04-08 11:12] LABS: Appearance Urine Clear (Clear); Bilirubin Urine 1+ (Negative); Blood Urine Negative (Negative); Color Urine Dark Yellow (Yellow); Glucose Urine UA Negative (Negative); Ketones Urine Trace mg/dL (Negative); Leukocyte Esterase Ur Negative LEU/UL (Negative); Nitrate Urine Negative (Negative); Protein Urine Negative (Negative); Specific Grav Ur >= 1.030 (1.001-1.035); pH Urine 5.5 (5.0-9.0)
[2022-04-08 11:21] LABS: Mucus Urine Moderate /lpf; RBC Urine 0-2 /hpf (0-2); WBC Urine 0-3 /hpf
[2022-04-08 11:23] LABS: Add Urine Microscopic? YES
[2022-04-08 11:36] VITALS: BP 128/91; PULSE 85; RESP 16; O2SAT 99
--- NOTE | 2022-04-08 12:39 | PC.NURSE ---
this rn called and spoke with both pt and daughter. both state that patient is not to his baseline. pt wive states he normally follows commands such as grab your walker, come over here and he is not doing that. This rn asked family to come to the er and speak with the erp that is providing care for the patient. Daughter verbalized that they will come up here.
[2022-04-08 13:08] VITALS: BP 145/100; PULSE 100; RESP 17; O2SAT 96
--- NOTE | 2022-04-08 15:37 | ED.FALL ---
HPI - Fall General Chief Complaint: Fall Stated Complaint: glf, ams, unknown down time Source: EMS and RN notes reviewed History of Present Illness HPI Narrative: Patient presents emergency department from home for a fall. Patient states he is on the couch last night and went to go to his wheelchair when he slid off the couch and was unable to get up he is unsure what time it happened but the found him on the floor at 730 this morning. Patient is primarily in a wheelchair at all times and only stands to transfer. He denies any trauma or injury from the fall patient does have a history of alcohol use but states he has not drank in several weeks denies any fevers or chills chest pain shortness of breath abdominal pain or any extremity pain Related Data Home Medications Medication Instructions Recorded Confirmed gabapentin 800 mg tablet 1 tablet PO HS 09/14/21 03/26/22 (Neurontin) acetaminophen 500 mg tablet 500 mg PO Q6H PRN pain 03/26/22 03/26/22 (Tylenol Extra Strength) Allergies Allergy/AdvReac Type Severity Reaction Status Date / Time ciprofloxacin [From Cipro] Allergy Rash Verified 04/08/22 09:37 mupirocin [From Bactroban] Allergy Hives Verified 04/08/22 09:37 Review of Systems Review of Systems: Gen.: Denies fevers or chills Eyes: Denies eye pain or visual change ENT: Denies congestion Respiratory: Denies shortness of breath or cough CV: Denies chest pain or palpitations GI: Denies abdominal pain nausea, emesis or diarrhea Musculoskeletal: Denies back pain or muscle pain Neuro: Reports weakness Skin: Denies rash Except as documented, all other systems reviewed and negative [facility] Past Medical History Medical History Acute encephalopathy Alcohol withdrawal delirium Cirrhosis, alcoholic DVT (deep venous thrombosis) Elevated liver enzymes History of alcoholism Hyperlipidemia Hypertension Malnutrition Surgical History Surgical History H/O repair of rotator cuff Family History Family History Mother Dementia Father Stomach cancer Sibling Diabetes mellitus Social History Social History Social History: patient currently lives with his of [place] who will be his surrogate. They have 4 kids all of them are girls . They have 1 dog and 1 cat. 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 The patient stated he still occasionally smokes a cigarette and he occasionally has a drink a Brennan Sosa. Code status full code Smoking packs per day: 0.5 Smoking cigarettes per day: 10.0 Years smoked: 30 Smoking pack-years: 15.00 Smoking status: Current every day smoker Tobacco type: cigarettes Alcohol intake: current Drinks per week: 14 Alcohol use details: Patient states he drinks roughly a 5th or more a day of Brennan Sosa Substance use: current Substance use type: marijuana Lack of Transportation: No Lack of Food: Never True Current Housing: I Have Housing Concerned About Future Housing: No Difficulty Paying Gas/Electric Bills: No Difficulty Paying for Meds: No Currently Unemployed: No Education: High School Diploma/GED Difficulty w/ Childcare or Family Care: No Living arrangements: with family Occupation/Education: retired Additional occupation/education comments: [employer] [place] [employer] Gender identity (if verbalized by the patient): Male Sexual Orientation (if Verbalized by the Patient): Straight or Heterosexual Spiritual care concerns: No Agree to blood products: Yes Exam Narrative: APPEARANCE: No acute distress, nontoxic, resting in bed EYES: EOMI, PERRL HEENT: Normocephalic, atraumatic, OMM no facial tenderness Neck: Supple no midline tenderness palpation full range of motion neck without pa
[2022-04-08 16:12] VITALS: BP 136/89; PULSE 98; RESP 16; O2SAT 97
== END 2022-04-08 16:13 | disposition home or self-care (01) ==
PROVIDERS: Emergency Provider Emergency Medicine
DX: R53.1 Weakness (principal); K70.30 Alcoholic cirrhosis of liver without ascites; E78.5 Hyperlipidemia, unspecified; I10 Essential (primary) hypertension; F10.20 Alcohol dependence, uncomplicated; Y90.0 Blood alcohol level of less than 20 mg/100 ml; F17.210 Nicotine dependence, cigarettes, uncomplicated; Z86.718 Personal history of other venous thrombosis and embolism; R94.31 Abnormal electrocardiogram [ECG] [EKG]; W08.XXXA Fall from other furniture, initial encounter
CPT/HCPCS: 36415; 70450; 71045; 72125; 80053; 80307; 81001; 82140; 82550; 83735; 85025; 85610; 85730; 93005; 99284

== ENCOUNTER 2022-10-14 15:16 | Emergency (ER) | payer SELFPAY ==
[2022-10-14 15:23] VITALS: BP 153/94; PULSE 116; RESP 20; TEMP 36.6; O2SAT 97
--- NOTE | 2022-10-14 16:09 | ED.GENADULT ---
HPI - General Adult General Chief complaint: Skin/Abscess/Foreign Body Stated complaint: ? SHINGLES PAIN R LEG/BACK Time Seen by Provider: 10/14/22 16:10 Source: patient Mode of arrival: ambulatory Limitations: dementia History of Present Illness HPI narrative: 57 years old white male came to the emergency room from home by private car complaining of pain at the right buttock radiating to the right lower extremity with rash. History of Wernicke's encephalopathy/Warnicke?Korsakoff syndrome. The above symptoms started 2 days ago. Patient is wheelchair-bound, problem with movement, balance, mind such as feeling disoriented, drowsy or confused. Was seen by a physician over 1 year ago. The diagnosis of Wernicke's encephalopathy April 2021. Patient does not take medicine at home, he does smoke, occasional marijuana, DNR. Last alcohol intake 2 days ago Related Data Home Medications Medication Instructions Recorded Confirmed gabapentin 800 mg tablet 1 tablet PO HS 09/14/21 03/26/22 (Neurontin) acetaminophen 500 mg tablet 500 mg PO Q6H PRN pain 03/26/22 03/26/22 (Tylenol Extra Strength) Allergies Allergy/AdvReac Type Severity Reaction Status Date / Time ciprofloxacin [From Cipro] Allergy Rash Verified 10/14/22 15:59 mupirocin [From Bactroban] Allergy Hives Verified 10/14/22 15:59 Review of Systems Review of Systems: ROS unobtainable: Yes unobtainable due to medical condition and unobtainable due to mental status PMFSH Past Medical History Medical History Acute encephalopathy Alcohol withdrawal delirium Cirrhosis, alcoholic DVT (deep venous thrombosis) Elevated liver enzymes History of alcoholism Hyperlipidemia Hypertension Malnutrition Surgical History Surgical History H/O repair of rotator cuff Family History Family History Mother Dementia Father Stomach cancer Sibling Diabetes mellitus Social History Social History Social History: patient currently lives with his of [place] who will be his surrogate. They have 4 kids all of them are girls . They have 1 dog and 1 cat. 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 The patient stated he still occasionally smokes a cigarette and he occasionally has a drink a Brennan Sosa. Code status full code Smoking packs per day: 0.5 Smoking cigarettes per day: 10.0 Years smoked: 30 Smoking pack-years: 15.00 Smoking status: Current every day smoker Tobacco type: cigarettes Alcohol intake: current Drinks per week: 14 Alcohol use details: Patient states he drinks roughly a 5th or more a day of Brennan Sosa Substance use: current Substance use type: marijuana Lack of Transportation: No Lack of Food: Never True Current Housing: I Have Housing Concerned About Future Housing: No Difficulty Paying Gas/Electric Bills: No Difficulty Paying for Meds: No Currently Unemployed: No Education: High School Diploma/GED Difficulty w/ Childcare or Family Care: No Living arrangements: with family Occupation/Education: retired Additional occupation/education comments: [place] [employer] Gender identity (if verbalized by the patient): Male Sexual Orientation (if Verbalized by the Patient): Straight or Heterosexual Spiritual care concerns: No Agree to blood products: Yes Exam Narrative: General appearance: Well-developed, well-nourished, in pain Skin: Normal color multiple blisters on erythematous base right buttock, right lower extremity down to the knee. Head: Normocephalic, nontraumatic Eyes: Clear conjunctiva ENT: Oropharynx normal, ears normal, nose normal Neck: Supple, nontender Chest and respiratory: Airway patent, no respiratory distress, no accessory muscle use Heart: Reg
[2022-10-14] MEDS: SODIUM CHLORIDE 0.9% IV 1,000 ML 999 ML IV CONT (16:43)
[2022-10-14] MEDS: HYDROmorphone HCL INJ (*CRX) 1 MG/ML SYR 0.5 MG IV PUSH (16:44)
[2022-10-14] MEDS: ONDANSETRON INJ 4 MG/2 ML VIAL IV PUSH (16:44)
[2022-10-14 16:51] LABS: Basophils Percent Auto 0.3 % (0.2-1.2); Eosinophils Absolute Auto 0.1 K/mm3 (0-0.3); Eosinophils Percent Auto 1.9 % (0-4.4); Hematocrit 45.4 % (42.0-52.0); Hemoglobin 14.8 g/dL (14.0-18.0); Immature Granulocyte Absolute 0.01 K/mm3 (0.00-0.031); Immature Granulocyte Percent A 0.2 % (0-0.5); Lymphocytes Absolute Auto 1.22 K/mm3 (0.9-3.2); Lymphocytes Percent Auto 21.2 % (18.3-44.2); Mean Corpuscular HGB Conc 32.6 g/dl (32-36); Mean Corpuscular Hemoglobin 27.9 pg (26-34); Mean Corpuscular Volume 85.5 fl (80-100); Mean Platelet Volume 9.4 fl (7.4-10.4); Monocytes Absolute Auto 0.7 K/mm3 (0.1-0.6); Monocytes Percent Auto 11.3 % (2.6-8.5); Neutrophils Absolute Auto 3.7 K/mm3 (1.3-6.7); Neutrophils Percent Auto 65.1 % (45.5-73.1); Platelet Count Result 158 k/mm3 (150-375); Red Blood Count 5.31 M/mm3 (4.6-6.20); Red Cell Distribution Width 19.8 % (11.5-14.5); White Blood Count 5.8 K/mm3 (4.5-10.0)
[2022-10-14] MEDS: valACYclovir HCL 500 MG TABLET 1000 MG PO (17:01)
[2022-10-14] MEDS: KETOROLAC 30 MG/ML VIAL (*BKC) IV PUSH (17:02)
[2022-10-14 17:05] LABS: Alanine Aminotransferase 30 U/L (6-50); Alkaline Phosphatase 144 U/L (38-126); Anion Gap 5 mmol/L (8-16); Aspartate Amino Transferase 34 U/L (17-59); Bilirubin,Total 0.6 mg/dL (0.2-1.3); Blood Urea Nitrogen 25 mg/dL (9-20); Calcium 8.9 mg/dL (8.4-10.2); Carbon Dioxide 25 mmol/L (22-30); Chloride 107 mmol/L (98-107); Estimated CRCL calculation 71 ml/min; Estimated Glomerular Filt Rate > 60; Ethanol < 10 mg/dL (<10); Glucose 130 mg/dL (65-110); Potassium 4.1 mmol/L (3.4-5.0); Sodium 137 mmol/L (137-145)
[2022-10-14 17:23] LABS: Appearance Urine Clear (Clear); Bacteria Urine None Seen /hpf; Bilirubin Urine Negative (Negative); Blood Urine Negative (Negative); Color Urine Yellow (Yellow); Glucose Urine UA Negative (Negative); Ketones Urine Negative (Negative); Leukocyte Esterase Ur Trace LEU/UL (Negative); Nitrate Urine Negative (Negative); Non Pathogenic Casts 0-2; Protein Urine Negative (Negative); RBC Urine 0-2 /hpf (0-2); Specific Grav Ur 1.023 (1.001-1.035); Squamous Epithelial Cell Urine None seen /hpf (Few); WBC Urine 0-5 /hpf
[2022-10-14 17:25] LABS: Add Urine Microscopic? YES
[2022-10-14 17:52] VITALS: BP 147/93; PULSE 104; RESP 18; O2SAT 99
== END 2022-10-14 17:54 | disposition home or self-care (01) ==
PROVIDERS: Emergency Provider Emergency Medicine
DX: B02.9 Zoster without complications (principal); E51.2 Wernicke's encephalopathy; E78.5 Hyperlipidemia, unspecified; I10 Essential (primary) hypertension; F10.20 Alcohol dependence, uncomplicated; K70.30 Alcoholic cirrhosis of liver without ascites; F17.210 Nicotine dependence, cigarettes, uncomplicated; Z86.718 Personal history of other venous thrombosis and embolism; Z99.3 Dependence on wheelchair; Z66 Do not resuscitate; Y90.0 Blood alcohol level of less than 20 mg/100 ml
CPT/HCPCS: 36415; 80053; 80307; 81001; 85025; 96361; 96374; 96375; 99284; A9270; J1170; J1885; J2405; J7030